=== PATIENT | female | born 1975 | race Caucasian/White ===

== ENCOUNTER 2017-08-27 11:06 | Emergency (ER) | payer OTHER, MEDICAID, SELFPAY ==
[2017-08-27 11:08] VITALS: BP 132/81; PULSE 61; RESP 16; TEMP 36.6; O2SAT 100; BMI 24.7
--- NOTE | 2017-08-27 11:44 | ED.VISSUMM ---
- ER Visit Summary Date of Service: 08/27/17 Chief Complaint: Right ankle injury History of Present Illness: The patient is a 42 F presenting with right ankle injury. 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 She did not fall to the floor. She has been able to walk with pain since. She tried Tylenol. She complains of persistent pain. She denies other injury. Physical Examination: Vitals are stable. Patient is afebrile. Alert no acute distress. HEENT exam is unremarkable. Lungs are clear and equal bilaterally. Heart is regular rate and rhythm. Extremities right lateral and mid ankle tenderness. No proximal fibula tenderness Skin is warm and dry. Remainder of exam is unremarkable. Emergency Department Course and Treatment: Ice pack was applied. Right foot x-ray shows no acute process, right ankle x-ray shows soft tissue swelling, Old avulsion injury of the medial malleolus. She is given an Aircast. She is given naproxen. She is advised to ice and elevate. Advised to follow-up with corporate care. Advised to return to the ED for worsening complaints. Disposition: Discharge home Impression: Right ankle sprain This note was generated with [employer] dictation software. It may contain incorrect words, spelling, and punctuation that were not noted in review of the chart prior to signing ED Disposition - Plan for ED Patient: Chief Complaint: Lower Extremity Injury Referrals: Reid Jimenez MD [Primary Care Provider] -
--- NOTE | 2017-08-27 11:50 | RAD_ITS ---
STUDY: X-RAY - RIGHT ANKLE REASON FOR EXAM: Female, 42 years old. Pain following injury. TECHNIQUE: 3 view(s) of the ankle. COMPARISON: None. FINDINGS: Normal visualized distal tibia and fibula. Old avulsion injury of the medial malleolus. Normal tibiotalar articulation and ankle mortise. Normal visualized talus and calcaneus. The visualized subtalar, talonavicular, calcaneocuboid and tarsal articulations are normal. Soft tissue swelling. RAD/Ankle min 3 Views IMPRESSION: Soft tissue swelling. Old avulsion injury of the medial malleolus. Electronically Signed: Ponce Pineda MD at 12:24 EST Tel [phone], Service support ,
--- NOTE | 2017-08-27 11:58 | RAD_ITS ---
STUDY: X-RAY - RIGHT FOOT CLINICAL: Female, 42 years old. Pain following injury. TECHNIQUE: 3 view(s) of the foot. COMPARISON: None. FINDINGS: Normal talus, calcaneus, and tarsal bones. Normal visualized subtalar, talonavicular, calcaneocuboid, tarsal and tarsometatarsal articulations. Normal metatarsi. Normal metatarsophalangeal joint of the great toe. There is a bipartite fibula sesamoid. Normal interphalangeal joint of the great toe. Normal phalanges of the great toe. Normal second through fifth metatarsophalangeal joints. Normal interphalangeal joints and phalanges of the lesser toes. The soft tissue structures are unremarkable. RAD/Foot min 3 Views IMPRESSION: Normal x-ray examination of the foot. Electronically Signed: Ponce Pineda MD at 12:15 EST Tel [phone], Service support ,
--- NOTE | 2017-08-27 13:14 | DCINST.ED_ITS ---
ED Disposition - Plan for ED Patient: Chief Complaint: Lower Extremity Injury Instructions: ED Sprain Ankle W X Ray Referrals: Reid Jimenez MD [Primary Care Provider] - [facility] [GROUP OF PHYSICIANS] -
[2017-08-27] MEDS: Naproxen 500 MG Tablet PO (13:29)
== END 2017-08-27 13:36 | disposition home or self-care (01) ==
LOC: ED 12:39
PROVIDERS: Emergency Provider Emergency Medicine; Family Provider Family Medicine; PCP Family Medicine
DX: S93.401A Sprain of unspecified ligament of right ankle, initial encounter (principal); X50.1XXA Overexertion from prolonged static or awkward postures, initial encounter; Y93.9 Activity, unspecified; Y92.9 Unspecified place or not applicable
CPT/HCPCS: 73610; 73630; 99283

== ENCOUNTER 2017-10-26 16:30 | Emergency (ER) | payer MEDICAID, SELFPAY ==
--- NOTE | 2017-10-26 18:00 | CT_ITS ---
STUDY: CT BRAIN WITHOUT CONTRAST REASON FOR EXAM: Female, 42 years old. Headache. RADIATION DOSAGE (If Supplied By Facility): CTDIvol = ( 44.99 ) mGy, DLP = ( 779.24 ) mGycm TECHNIQUE: Transaxial CT imaging of the brain was performed without administration of intravenous contrast material. Individualized dose optimization techniques were used for this CT. COMPARISON: None. FINDINGS: Normal soft tissue structures. Normal calvarium. Normal size ventricles and extra-axial spaces for the patient's age. Normal white matter tracts of the cerebral hemispheres. Normal basal ganglia and thalami. Normal brainstem. Normal cerebellum. There is no intracranial hemorrhage. There are no findings of an acute ischemic infarction. There is a large mucus retention cyst in the left maxillary sinus. CT/Brain/Head without Contrast IMPRESSION: 1. Normal unenhanced CT scan of the brain. 2. Left maxillary sinusitis. Electronically Signed: Javy Parra DO at 18:39 EDT Tel [phone], Service support ,
[2017-10-26 23:27] LABS: Bacteria 0 SEEN /hpf (None Seen); Mucous, Urine 0 SEEN /hpf (<or=2+); Red Blood Cells-Urine 0 SEEN /hpf (0-5); Squamous Epithelial Cells - UA 0 SEEN /hpf (5-10); White Blood Cells 0 SEEN /hpf (0-5)
[2017-10-27 01:21] LABS: Color, Urine STRAW (Yellow); Glucose, Dipstick Normal (Normal); Urine Clarity Clear (Clear)
[2017-10-27 01:22] LABS: Ketone-Dipstick Negative (Negative); Leukocyte Esterase-Dipstick Negative /ul (Negative); Nitrite-Dipstick Negative (Negative); Occult Blood-Urine Negative /ul (Negative); Protein-Dipstick Negative (Negative); Urine Bilirubin Dipstick Negative (Negative); Urine Urobilinogen Normal (Normal)
[2017-10-27 01:43] LABS: Anion Gap 7 (5-15); BUN 11 mg/dL (7-18); BUN/Creat Ratio 14.3 RATIO (10-20); Calcium,Total 8.8 mg/dL (8.5-10.1); Chloride 106 mmol/L (98-107); Creatinine, Serum 0.77 mg/dL (0.55-1.02); EST Glomerular Filtration Rate 88 mL/min (>60); Est Glom Filt Rate - Afr Amer 107 mL/min (>60); Glucose 68 mg/dL (74-106); Potassium 3.5 mmol/L (3.5-5.1); Sodium Level 140 mmol/L (136-145)
[2017-10-27 01:49] LABS: Absolute Neutrophil Count 4.9 X10^3/uL (2.0-7.7); Basophil% 0.4 % (0-1); Eosinophils% 3.5 % (0-5); Hematocrit 45.5 % (37-47); Hemoglobin 14.8 g/dl (12.0-15.0); Lymphocyte # 3.57 X10^3/ul (4.0); Lymphocyte % 38.6 % (19-41); Mean Corp Hgb Conc 32.5 g/gl (32-36); Mean Corpuscular Hgb 29.7 pg (27.0-32.0); Mean Corpuscular Volume 91.4 fL (81-99); Mean Platelet Vol. 9.2 fl (6.2-12.0); Monocyte% 4.5 % (0-10); Neutrophil # 4.87 X10^3/uL (2.7-7.7); Neutrophil % 52.8 % (47-70); POSITIVE COUNT NO; POSITIVE DIFFERENTIAL NO; POSITIVE MORPHOLOGY NO; Platelet Count 337 K/mm3 (150-450); RBC Distribution Width CV 13.3 % (11.6-14.6); Red Blood Count 4.98 M/mm3 (4.2-5.4); White Blood Count 9.2 K/mm3 (4.4-11.0)
--- NOTE | 2017-10-27 01:49 | ED.VISSUMM ---
- ER Visit Summary Date of Service: 10/27/17 Chief Complaint: Headache History of Present Illness: The patient is a 42 F frontal headache since 10 AM this morning. Gradual. Complains of oral sensations with photo and phonophobia. Denies fever. States been having chills for 4 days. With sick contacts. Complains of diarrhea 3 times per day for the last 4 days. No recent antibiotics. She is tolerating oral fluids. Complains a urine frequency. Mild cough. No dyspnea. No chest pains. No history of migraines. Physical Examination: General: Alert and oriented ?3, no acute distress HEENT: Normocephalic, atraumatic. Moist mucosa membranes Neck: supple, nontender. No meningismus Cardiovascular: Regular rate and rhythm, no murmurs Respiratory: Normal breath sounds, symmetric, no distress Abdomen: Soft, nontender, nondistended Extremities: Nontender, no edema, pulses intact ?4 Neuro: no focal neurological deficits. Test Results: CT head negative. UA normal. CBC, BMP normal Emergency Department Course and Treatment: CT head obtained due to her new onset headaches negative except for maxillary sinusitis. She is not tender in this region. Treated migraine regimen of Compazine Benadryl and fluids with improvement of symptoms. Labs were checked due to her chills and diarrhea symptoms. There were normal. Patient will continue oral hydration at home. Follow-up with PCP, return if any worsening symptoms. Treatment Plan: [] Disposition: Discharged Impression: 1. Headache 2. Diarrhea This note was generated with [employer] dictation software. It may contain incorrect words, spelling, and punctuation that were not noted in review of the chart prior to signing ED Disposition - Plan for ED Patient: Disposition: Home or Assisted Living Diagnosis: Headache, Diarrhea Referrals: Reid Jimenez MD [Primary Care Provider] -
[2017-10-27 01:50] LABS: Absolute Lymphocyte Count 3.57 X10^3/ul (0.83-4.51); Basophil# 0.04 X10^3/uL; Eosinophil# 0.32 X10^3/uL; Monocyte# 0.42 X10^3/uL
== END 2017-10-26 20:25 | disposition home or self-care (01) ==
PROVIDERS: Emergency Provider Emergency Medicine; Family Provider Family Medicine; PCP Family Medicine
DX: R51 Headache (principal); R19.7 Diarrhea, unspecified; K21.9 Gastro-esophageal reflux disease without esophagitis; Z79.899 Other long term (current) drug therapy
CPT/HCPCS: 36415; 70450; 80048; 81001; 85025; 96374; 96375; 99283

== ENCOUNTER 2017-12-19 22:07 | Emergency (ER) | payer MEDICAID, SELFPAY ==
[2017-12-19 22:08] VITALS: BP 121/91; PULSE 104; RESP 16; TEMP 36.9; O2SAT 97; BMI 26.5
--- NOTE | 2017-12-19 23:08 | ED.VISSUMM ---
- ER Visit Summary Date of Service: 12/19/17 Chief Complaint: Abdominal pain History of Present Illness: The patient is a 42 F who presents for 3 days of abdominal pain. Pain began diffusely in the periumbilical region and now is located in the right lower quadrant. Patient states the pain is sharp and constant. It is worse with movement, including bumps in the road on the ride to the emergency department. Also worse after eating. Patient states she has associated nausea, several episodes of mucousy diarrhea, and a decreased appetite. Denies fever, chest pain, shortness of breath, URI symptoms. Upon arriving in the emergency department she began having some mild right-sided back pain as well. Denies urinary symptoms. History of hysterectomy and bilateral salpingo-oophorectomy, cholecystectomy. Patient still has her appendix. She has had similar symptoms in the past but states it was due to an ovarian cyst, and she no longer has her ovaries. Eyes alcohol or tobacco use. Physical Examination: Vital signs: afebrile, hemodynamically stable, no hypoxia on room air General: well nourished, well developed, laying in bed with knees pulled up to chest, appears uncomfortable Skin: warm, dry, no rash, no pallor HEENT: normocephalic and atraumatic; PERRL, EOMI, moist mucous membranes Cardiovascular: Tachycardic rate and rhythm without murmurs, no peripheral edema, 2+ pulses all distal extremities Respiratory: No increased work of breathing, lungs are clear to auscultation bilaterally, no rales, rhonchi or wheezing Abdominal: Abdomen is soft, tender in the right periumbilical region and McBurney's point, with normoactive bowel sounds, voluntary guarding or rebound, no masses MSK: Moves all extremities, no deformities, normal strength Neuro: Awake and alert, oriented ?4. No facial droop, sensation and motor function intact and symmetric Test Results: Abnormal Lab Results 12/19/17 12/19/17 12/19/17 23:20 23:28 23:28 WBC 10.1 RBC 5.00 Hgb 15.1 H Hct 44.1 MCV 88.2 MCH 30.2 MCHC 34.2 RDW 12.4 RDW Differential 39.8 Plt Count 308 MPV 8.9 Immature Gran % (Auto) 0.300 Neut % (Auto) 52.3 Lymph % (Auto) 37.7 [place] % (Auto) 5.4 Eos % (Auto) 3.9 Baso % (Auto) 0.4 Absolute Neuts (auto) 5.3 Absolute Lymphs (auto) 3.79 Total Counted Not Reportable Sodium 139 Potassium 3.5 Chloride 105 Carbon Dioxide 27.0 Anion Gap 7 BUN 8 Creatinine 0.84 Estim Creat Clear Calc 72.91 Est GFR (MDRD) Af Amer 96 Est GFR (MDRD) Non-Af 79 BUN/Creatinine Ratio 9.5 L Glucose 100 Lactic Acid Calcium 9.1 Total Bilirubin 0.30 AST 16 ALT 27 Alkaline Phosphatase 93 Total Protein 7.3 Albumin 3.6 Globulin 3.7 Albumin/Globulin Ratio 1.0 Lipase 130 Urine Color Yellow Urine Clarity Sl. Cloudy Urine pH 6.0 Ur Specific [place] 1.015 Urine Protein Negative Urine Glucose (UA) Normal Urine Ketones Negative Urine Occult Blood 10 H Urine Nitrite Negative Urine Bilirubin Negative Urine Urobilinogen Normal Ur Leukocyte Esterase 25 H Urine RBC 0-5 SEEN Urine WBC 0-5 SEEN Ur Squamous Epith Cells 0-5 SEEN Urine Bacteria RARE Urine Mucus 0 SEEN 12/19/17 23:28 WBC RBC Hgb Hct MCV MCH MCHC RDW RDW Differential Plt Count MPV Immature Gran % (Auto) Neut % (Auto) Lymph % (Auto) [place] % (Auto) Eos % (Auto) Baso % (Auto) Absolute Neuts (auto) Absolute Lymphs (auto) Total Counted Sodium Potassium Chloride Carbon Dioxide Anion Gap BUN Creatinine Estim Creat Clear Calc Est GFR (MDRD) Af Amer Est GFR (MDRD) Non-Af BUN/Creatinine Ratio Glucose Lactic Acid 0.7 Calcium Total Bilirubin AST ALT Alkaline Phosphatase Total Protein Albumin Globulin Albumin/Globulin Ratio Lipase Urine Color Urine Clarity Urine pH Ur Specific [place] Urine Protein Urine Glucose (UA) Urine Ketones Urine Occult Blood Urine Nitrite Urine Bilirubin Urine Urobilinogen Ur Leukocyte Esterase Urine RBC Urine WBC Ur Squamous Epith Cells Urine Bacteria Urine Mucus Clinical Impression(s) from Imaging Studies Abdomen/Pelvis CT 12/20/17 23:06 IMPRESSION: Previous cholecystectomy and hysterectomy. Atherosclerosis. No evidence for acute pathology. Electronically Signed: Geoff Meier MD at 2:52 EDT , Service support , Emergency Department Course and Treatment: Patient's presentation and exam are concerning for possible appendicitis. Patient was given fentanyl and Zofran as well as IV fluids. CBC showed no leukocytosis. See REGIONAL BUSINESS MANAGER was unremarkable, and lipase normal. Urinalysis negative for infection. Lactate was normal. CT of the abdomen and pelvis was performed with p.o. and IV contrast and showed a normal appendix and no other acute abdominal pathology. On reevaluation patient's periumbilical pain had resolved and she was beginning to have some right lower quadrant abdominal pain again. She is status post hysterectomy and oophorectomy, thus torsion is not on the differential. Patient was feeling much better on reevaluation and was given 1 dose of [place] prior to discharge. No life-threatening causes of patient's abdominal pain were identified that would require surgical consult or admission. Patient was discharged home with a small prescription for [place] for further pain. She is to use naproxen for mild to moderate pain. She is to follow-up with her primary care doctor if her pain continues or return if any worsening of her symptoms. Patient agreed and was discharged home. Treatment Plan: [] Disposition: [] Impression: Abdominal pain, periumbilical and right lower quadrant This note was generated with [employer] dictation software. It may contain incorrect words, spelling, and punctuation that were not noted in review of the chart prior to signing ED Disposition - Plan for ED Patient: Disposition: Home or Assisted Living Chief Complaint: Abd Pain Instructions: ED Abdominal Pain Unkn Cause Prescriptions: Hydrocodone Bitart/Apap 5-325 [[place] 5MG-325MG] 1 tab PO Q6H PRN PRN 3 Days #6 tab PRN Reason: Pain Ondansetron [Zofran Odt] 4 mg PO Q8H PRN PRN #10 tab PRN Reason: Nausea Referrals: Reid Jimenez MD [Primary Care Provider] - 3-5 Days if not improving Additional Instructions: If you have any worsening of your condition or any new concerning symptoms, please return immediately to the emergency department for another evaluation.
--- NOTE | 2017-12-19 23:11 | ED.DCSUM_ITS ---
- ER Visit Summary Date of Service: 12/19/17 Chief Complaint: Abdominal pain History of Present Illness: The patient is a 42 F who presents for 3 days of abdominal pain. Pain began diffusely in the periumbilical region and now is located in the right lower quadrant. Patient states the pain is sharp and constant. It is worse with movement, including bumps in the road on the ride to the emergency department. Also worse after eating. Patient states she has associated nausea, several episodes of mucousy diarrhea, and a decreased appetite. Denies fever, chest pain, shortness of breath, URI symptoms. Upon arriving in the emergency department she began having some mild right-sided back pain as well. Denies urinary symptoms. History of hysterectomy and bilateral salpingo-oophorectomy, cholecystectomy. Patient still has her appendix. She has had similar symptoms in the past but states it was due to an ovarian cyst, and she no longer has her ovaries. Eyes alcohol or tobacco use. Physical Examination: Vital signs: afebrile, hemodynamically stable, no hypoxia on room air General: well nourished, well developed, laying in bed with knees pulled up to chest, appears uncomfortable Skin: warm, dry, no rash, no pallor HEENT: normocephalic and atraumatic; PERRL, EOMI, moist mucous membranes Cardiovascular: Tachycardic rate and rhythm without murmurs, no peripheral edema , 2+ pulses all distal extremities Respiratory: No increased work of breathing, lungs are clear to auscultation bilaterally, no rales, rhonchi or wheezing Abdominal: Abdomen is soft, tender in the right periumbilical region and McBurney's point, with normoactive bowel sounds, voluntary guarding or rebound, no masses MSK: Moves all extremities, no deformities, normal strength Neuro: Awake and alert, oriented ?4. No facial droop, sensation and motor function intact and symmetric Test Results: Abnormal Lab Results 12/19/17 12/19/17 12/19/17 23:20 23:28 23:28 WBC 10.1 RBC 5.00 Hgb 15.1 H Hct 44.1 MCV 88.2 MCH 30.2 MCHC 34.2 RDW 12.4 RDW Differential 39.8 Plt Count 308 MPV 8.9 Immature Gran % (Auto) 0.300 Neut % (Auto) 52.3 Lymph % (Auto) 37.7 [place] % (Auto) 5.4 Eos % (Auto) 3.9 Baso % (Auto) 0.4 Absolute Neuts (auto) 5.3 Absolute Lymphs (auto) 3.79 Total Counted Not Reportable Sodium 139 Potassium 3.5 Chloride 105 Carbon Dioxide 27.0 Anion Gap 7 BUN 8 Creatinine 0.84 Estim Creat Clear Calc 72.91 Est GFR (MDRD) Af Amer 96 Est GFR (MDRD) Non-Af 79 BUN/Creatinine Ratio 9.5 L Glucose 100 Lactic Acid Calcium 9.1 Total Bilirubin 0.30 AST 16 ALT 27 Alkaline Phosphatase 93 Total Protein 7.3 Albumin 3.6 Globulin 3.7 Albumin/Globulin Ratio 1.0 Lipase 130 Urine Color Yellow Urine Clarity Sl. Cloudy Urine pH 6.0 Ur Specific [place] 1.015 Urine Protein Negative Urine Glucose (UA) Normal Urine Ketones Negative Urine Occult Blood 10 H Urine Nitrite Negative Urine Bilirubin Negative Urine Urobilinogen Normal Ur Leukocyte Esterase 25 H Urine RBC 0-5 SEEN Urine WBC 0-5 SEEN Ur Squamous Epith Cells 0-5 SEEN Urine Bacteria RARE Urine Mucus 0 SEEN 12/19/17 23:28 WBC RBC Hgb Hct MCV MCH MCHC RDW RDW Differential Plt Count MPV Immature Gran % (Auto) Neut % (Auto) Lymph % (Auto) [place] % (Auto) Eos % (Auto) Baso % (Auto) Absolute Neuts (auto) Absolute Lymphs (auto) Total Counted Sodium Potassium Chloride Carbon Dioxide Anion Gap BUN Creatinine Estim Creat Clear Calc Est GFR (MDRD) Af Amer Est GFR (MDRD) Non-Af BUN/Creatinine Ratio Glucose Lactic Acid 0.7 Calcium Total Bilirubin AST ALT Alkaline Phosphatase Total Protein Albumin Globulin Albumin/Globulin Ratio Lipase Urine Color Urine Clarity Urine pH Ur Specific [place] Urine Protein Urine Glucose (UA) Urine Ketones Urine Occult Blood Urine Nitrite Urine Bilirubin Urine Urobilinogen Ur Leukocyte Esterase Urine RBC Urine WBC Ur Squamous Epith Cells Urine Bacteria Urine Mucus Clinical Impression(s) from Imaging Studies Abdomen/Pelvis CT 12/20/17 23:06 IMPRESSION: Previous cholecystectomy and hysterectomy. Atherosclerosis. No evidence for acute pathology. Electronically Signed: Geoff Meier MD at 2:52 EDT , Service support , Emergency Department Course and Treatment: Patient's presentation and exam are concerning for possible appendicitis. Patient was given fentanyl and Zofran as well as IV fluids. CBC showed no leukocytosis. See ROUTE CLERK was unremarkable, and lipase normal. Urinalysis negative for infection. Lactate was normal. CT of the abdomen and pelvis was performed with p.o. and IV contrast and showed a normal appendix and no other acute abdominal pathology. On reevaluation patient 's periumbilical pain had resolved and she was beginning to have some right lower quadrant abdominal pain again. She is status post hysterectomy and oophorectomy, thus torsion is not on the differential. Patient was feeling much better on reevaluation and was given 1 dose of [place] prior to discharge. No life-threatening causes of patient's abdominal pain were identified that would require surgical consult or admission. Patient was discharged home with a small prescription for [place] for further pain. She is to use naproxen for mild to moderate pain. She is to follow-up with her primary care doctor if her pain continues or return if any worsening of her symptoms. Patient agreed and was discharged home. Treatment Plan: [] Disposition: [] Impression: Abdominal pain, periumbilical and right lower quadrant This note was generated with [employer] dictation software. It may contain incorrect words, spelling, and punctuation that were not noted in review of the chart prior to signing ED Disposition - Plan for ED Patient: Disposition: Home or Assisted Living Chief Complaint: Abd Pain Instructions: ED Abdominal Pain Unkn Cause Prescriptions: Hydrocodone Bitart/Apap 5-325 [[place] 5MG-325MG] 1 tab PO Q6H PRN PRN 3 Days #6 tab PRN Reason: Pain Ondansetron [Zofran Odt] 4 mg PO Q8H PRN PRN #10 tab PRN Reason: Nausea Referrals: Reid Jimenez MD [Primary Care Provider] - 3-5 Days if not improving Additional Instructions: If you have any worsening of your condition or any new concerning symptoms, please return immediately to the emergency department for another evaluation.
[2017-12-19 23:25] LABS: Mucous, Urine 0 SEEN /hpf (<or=2+)
[2017-12-19 23:31] LABS: Color, Urine Yellow (Yellow); Glucose, Dipstick Normal (Normal); Ketone-Dipstick Negative (Negative); Leukocyte Esterase-Dipstick 25 /ul (Negative); Nitrite-Dipstick Negative (Negative); Occult Blood-Urine 10 /ul (Negative); Protein-Dipstick Negative (Negative); Specific Gravity, Urine 1.015 (1.002-1.030); Urine Bilirubin Dipstick Negative (Negative); Urine Clarity Sl. Cloudy (Clear); Urine Urobilinogen Normal (Normal)
[2017-12-19] MEDS: fentaNYL 100 MCG/2 ML Ampul 50 MCG IV (23:36)
[2017-12-19] MEDS: Ondansetron 4 MG/2 ML Vial IV (23:36)
[2017-12-19] MEDS: 0.9% Normal Saline 1,000 ML 1000 ML IV (23:36)
[2017-12-19 23:40] LABS: Absolute Lymphocyte Count 3.79 X10^3/ul (0.83-4.51); Absolute Neutrophil Count 5.3 X10^3/uL (2.0-7.7); Basophil# 0.04 X10^3/uL; Basophil% 0.4 % (0-1); Eosinophil# 0.39 X10^3/uL; Eosinophils% 3.9 % (0-5); Hematocrit 44.1 % (37-47); Hemoglobin 15.1 g/dl (12.0-15.0); Lymphocyte # 3.79 X10^3/ul (4.0); Lymphocyte % 37.7 % (19-41); Mean Corp Hgb Conc 34.2 g/gl (32-36); Mean Corpuscular Hgb 30.2 pg (27.0-32.0); Mean Corpuscular Volume 88.2 fL (81-99); Mean Platelet Vol. 8.9 fl (6.2-12.0); Monocyte# 0.54 X10^3/uL; Monocyte% 5.4 % (0-10); Neutrophil # 5.26 X10^3/uL (2.7-7.7); Neutrophil % 52.3 % (47-70); Platelet Count 308 K/mm3 (150-450); RBC Distribution Width CV 12.4 % (11.6-14.6); RBC Distribution Width SD 39.8 fl (35.1-43.9); White Blood Count 10.1 K/mm3 (4.4-11.0)
[2017-12-19 23:41] LABS: POSITIVE COUNT NO; POSITIVE DIFFERENTIAL NO; POSITIVE MORPHOLOGY NO
[2017-12-19 23:55] LABS: Bacteria RARE /hpf (None Seen); Red Blood Cells-Urine 0-5 SEEN /hpf (0-5); Squamous Epithelial Cells - UA 0-5 SEEN /hpf (5-10); White Blood Cells 0-5 SEEN /hpf (0-5)
[2017-12-20 00:01] LABS: AST(SGOT) 16 U/L (15-37); Alanine Aminotransfer ALT/SGPT 27 U/L (13-56); Albumin, Serum 3.6 g/dL (3.2-5.0); Alkaline Phosphatase 93 U/L (45-117); Anion Gap 7 (5-15); BUN 8 mg/dL (7-18); BUN/Creat Ratio 9.5 RATIO (10-20); Calcium,Total 9.1 mg/dL (8.5-10.1); Chloride 105 mmol/L (98-107); Creatinine, Serum 0.84 mg/dL (0.55-1.02); EST Glomerular Filtration Rate 79 mL/min (>60); Est Glom Filt Rate - Afr Amer 96 mL/min (>60); Estimated Creatinine Clearance 72.91 ml/min; Globulin 3.7 g/dL (2.2-4.2); Glucose 100 mg/dL (74-106); Lipase 130 U/L (73-393); Potassium 3.5 mmol/L (3.5-5.1); Protein, Total 7.3 g/dL (6.4-8.2); Sodium Level 139 mmol/L (136-145)
[2017-12-20 00:52] LABS: Lactic Acid 0.7 mmol/L (0.4-2.0)
[2017-12-20 02:40] VITALS: BP 124/60; PULSE 81; RESP 18; O2SAT 100
--- NOTE | 2017-12-20 03:01 | ED.DEP ---
ED Disposition - Plan for ED Patient: Disposition: Home or Assisted Living Chief Complaint: Abd Pain Instructions: ED Abdominal Pain Unkn Cause Prescriptions: Hydrocodone Bitart/Apap 5-325 [[place] 5MG-325MG] 1 tab PO Q6H PRN PRN 3 Days #6 tab PRN Reason: Pain Ondansetron [Zofran Odt] 4 mg PO Q8H PRN PRN #10 tab PRN Reason: Nausea Referrals: Reid Jimenez MD [Primary Care Provider] - 3-5 Days if not improving Additional Instructions: If you have any worsening of your condition or any new concerning symptoms, please return immediately to the emergency department for another evaluation.
[2017-12-20] MEDS: HYDROcodone Bitartrate/Apap 5/325 Tablet PO (03:30)
[2017-12-20 03:35] VITALS: BP 102/66; PULSE 75; RESP 18; O2SAT 97
--- NOTE | 2017-12-20 23:06 | CT_ITS ---
STUDY: CT ABDOMEN AND PELVIS WITH CONTRAST REASON FOR EXAM: Female, 42 years old. Abdominal pain for 3 days. Nausea. Diarrhea. RADIATION DOSAGE (If Supplied By Facility): CTDIvol = ( 11.54 ) mGy, DLP = ( 772.02 ) mGycm TECHNIQUE: Transaxial images were obtained from the dome of the diaphragm to the symphysis pubis with oral contrast. 100ML ml of Isovue 300 contrast was administered. Sagittal and coronal images were reconstructed. . Individualized dose optimization techniques were used for this CT. COMPARISON: 04/27/2015. FINDINGS: The visualized lung bases are unremarkable. The visualized portions of the heart are within normal limits. Normal liver. There are surgical clips in the gallbladder fossa consistent with a prior cholecystectomy. Normal spleen. Normal pancreas. Normal bilateral adrenal glands. Normal right kidney. Normal left kidney. Normal visualized stomach. Normal small intestine. Normal colon. The appendix is visualized on axial images 77-83 and it appears normal.. There is atherosclerotic calcification of the abdominal aorta, without a demonstrated aneurysm. Normal inferior vena cava. Normal retroperitoneum. Assessment of the urinary bladder is limited by nondistention. There is absence of the uterus consistent with a prior hysterectomy. Normal abdominal wall. Normal osseous structures. CT/Abdomen/Pelvis WITH Contrast IMPRESSION: Previous cholecystectomy and hysterectomy. Atherosclerosis. No evidence for acute pathology. Electronically Signed: Geoff Meier MD at 2:52 EDT , Service support ,
== END 2017-12-20 03:36 | disposition home or self-care (01) ==
PROVIDERS: Emergency Provider Emergency Medicine; Family Provider Family Medicine; PCP Family Medicine
DX: R10.31 Right lower quadrant pain (principal); R10.33 Periumbilical pain; R11.0 Nausea; R19.7 Diarrhea, unspecified; M54.9 Dorsalgia, unspecified; Z90.710 Acquired absence of both cervix and uterus; Z90.722 Acquired absence of ovaries, bilateral; Z90.49 Acquired absence of other specified parts of digestive tract; Z87.891 Personal history of nicotine dependence
CPT/HCPCS: 74177; 80053; 81001; 83605; 83690; 85025; 96361; 96374; 96375; 99285; J7030; Q9967; A4216; J2405

== ENCOUNTER → 2017-12-31 18:36 | Outpatient (CLI) | payer MEDICAID, SELFPAY ==
[2018-01-03 09:01] LABS: HPV Reflexed? NOT INDICATED
== END ==
PROVIDERS: Family Provider Family Medicine; PCP Pediatrics; Visit Provider Obstetrics & Gynecology
DX: Z12.4 Encounter for screening for malignant neoplasm of cervix (principal)
CPT/HCPCS: 88175; G0145

== ENCOUNTER 2018-01-10 10:28 | Emergency (ER) | payer MEDICAID, SELFPAY ==
[2018-01-10 10:29] VITALS: BP 125/82; PULSE 92; RESP 17; TEMP 36.3; O2SAT 100; BMI 26.9
[2018-01-10 11:00] LABS: Bacteria 0 SEEN /hpf (None Seen); Mucous, Urine 0 SEEN /hpf (<or=2+); Red Blood Cells-Urine 0 SEEN /hpf (0-5); Squamous Epithelial Cells - UA 0 SEEN /hpf (5-10); White Blood Cells 0 SEEN /hpf (0-5)
[2018-01-10 11:04] LABS: Color, Urine Yellow (Yellow); Glucose, Dipstick Normal (Normal); Ketone-Dipstick Negative (Negative); Leukocyte Esterase-Dipstick Negative /ul (Negative); Nitrite-Dipstick Negative (Negative); Occult Blood-Urine Negative /ul (Negative); Protein-Dipstick Negative (Negative); Urine Bilirubin Dipstick Negative (Negative); Urine Clarity Clear (Clear); Urine Urobilinogen Normal (Normal)
[2018-01-10 11:06] LABS: Absolute Lymphocyte Count 3.09 X10^3/ul (0.83-4.51); Absolute Neutrophil Count 3.5 X10^3/uL (2.0-7.7); Basophil# 0.03 X10^3/uL; Basophil% 0.4 % (0-1); Eosinophil# 0.36 X10^3/uL; Hemoglobin 15.1 g/dl (12.0-15.0); Lymphocyte # 3.09 X10^3/ul (4.0); Lymphocyte % 42.6 % (19-41); Mean Corp Hgb Conc 32.8 g/gl (32-36); Mean Corpuscular Hgb 29.7 pg (27.0-32.0); Mean Corpuscular Volume 90.4 fL (81-99); Mean Platelet Vol. 9.4 fl (6.2-12.0); Monocyte# 0.25 X10^3/uL; Monocyte% 3.4 % (0-10); Neutrophil # 3.51 X10^3/uL (2.7-7.7); Neutrophil % 48.3 % (47-70); Platelet Count 302 K/mm3 (150-450); RBC Distribution Width CV 12.6 % (11.6-14.6); RBC Distribution Width SD 41.4 fl (35.1-43.9); Red Blood Count 5.09 M/mm3 (4.2-5.4); White Blood Count 7.3 K/mm3 (4.4-11.0)
[2018-01-10 11:08] LABS: POSITIVE COUNT NO; POSITIVE DIFFERENTIAL NO; POSITIVE MORPHOLOGY NO
[2018-01-10 11:18] LABS: Anion Gap 5 (5-15); BUN 9 mg/dL (7-18); BUN/Creat Ratio 11.1 RATIO (10-20); Calcium,Total 9.2 mg/dL (8.5-10.1); Chloride 106 mmol/L (98-107); Creatinine, Serum 0.81 mg/dL (0.55-1.02); EST Glomerular Filtration Rate 83 mL/min (>60); Est Glom Filt Rate - Afr Amer 100 mL/min (>60); Estimated Creatinine Clearance 75.61 ml/min; Glucose 82 mg/dL (74-106); Potassium 3.9 mmol/L (3.5-5.1); Sodium Level 143 mmol/L (136-145)
[2018-01-10] MEDS: Ketorolac 30 MG/ML Syringe IV (11:21)
[2018-01-10] MEDS: proMETHazine 25 MG/ML Syringe 6.25 MG IV (11:21)
--- NOTE | 2018-01-10 11:32 | EKG12_ITS ---
Test Reason : CHEST PRESSURE Blood Pressure : / mmHG Vent. Rate : 050 BPM Atrial Rate : 050 BPM P-R Int : 130 ms QRS Dur : 088 ms QT Int : 424 ms P-R-T Axes : 034 054 054 degrees QTc Int : 386 ms Sinus bradycardia with sinus arrhythmia Otherwise normal ECG Confirmed by FREDY WASHINGTON, CARROLL ([id number]), map editor EUSEBIO ARGUETA ([id number] on 01/14/2018 2:25:12 PM Referred By: Melody Vega Confirmed By:CARROLL DANIEL MD
--- NOTE | 2018-01-10 11:32 | ED.RN ---
after giving medications, pt began clutching chest and c/o chest pressure. called for ekg. dr atkins made aware.
[2018-01-10 11:35] LABS: AST(SGOT) 21 U/L (15-37); Alanine Aminotransfer ALT/SGPT 28 U/L (13-56); Albumin, Serum 3.8 g/dL (3.2-5.0); Alkaline Phosphatase 98 U/L (45-117); Bilirubin, Direct 0.06 mg/dL (0.00-0.30); Globulin 3.9 g/dL (2.2-4.2); Lipase 135 U/L (73-393); Protein, Total 7.7 g/dL (6.4-8.2)
[2018-01-10 12:49] VITALS: BP 125/74; PULSE 68; RESP 18; O2SAT 99
[2018-01-10 14:17] VITALS: BP 121/73; PULSE 65; RESP 18; O2SAT 100
--- NOTE | 2018-01-10 17:24 | ED.DCSUM_ITS ---
History of Present Illness Chief Complaint: Abd Pain Informant: Patient Onset: Weeks - 3 Context: Gradual Onset Timing: Continuous Quality: achy Location: RUQ mostly. radiates to periumbilical area and to mid-back. Current Severity: Severe Maximum Severity: Severe Worsened by: about 30 min after eating Relieved by: nothing Associated Symptoms: n/v. some nonbloody, nonmelanotic diarrhea off and on w/ mucous and oily. Narrative: Seen here last month for the same thing, had a negative workup with labs and CT abdomen/pelvis. Try to follow-up with her doctor but has not been able to yet. Called the office of the surgeon who took her gallbladder out and they did not want to see her for nonspecific abdominal pain. Symptoms worse today. - Past Medical History (1) H. pylori infection Status: Chronic (2) Tobacco dependence Status: Chronic Past Medical History - Allergies and Home Meds Allergies/Adverse Reactions: Allergies hydromorphone HCl [From Dilaudid] Allergy (Verified 01/10/18 10:29) Anaphylaxis morphine Allergy (Verified 01/10/18 10:29) Anaphylaxis meloxicam Adverse Reaction (Verified 01/10/18 10:29) Nausea tramadol [From Ultram] Adverse Reaction (Verified 01/10/18 10:29) Other Primary Care Physician: Reid Jimenez MD [Primary Care Provider] - Surgical History: cholecystectomy, - - 3 knee surgeries hysterectemy, laparoscopy. Smoking Status: Former smoker Alcohol: None Drugs: None - Family History Paternal Family History: Family History (Last Reviewed 12/31/17 @ 15:19 by Gloria Suresh) Other CVA (cerebral vascular accident) Cancer Diabetes Hypertension Family History: Reports: Heart Disease Review of Systems All systems negative except as indicated General: Reports: Malaise. Denies: Fever Cardiovascular: Denies: Chest pain Respiratory: Denies: Dyspnea, Cough Gastrointestinal: Reports: Abdominal pain, Nausea, Vomiting, Diarrhea. Denies: Melena, Hematochezia Genitourinary: Denies: Dysuria, Hematuria, Frequency Musculoskeletal: Reports: Back pain. Denies: Neck pain, Swelling, Extremity Pain Skin: Denies: Rash Neurological: Denies: Headache, Weakness, Parasthesia Physical Exam Vital Signs/Narrative: Vital Signs Temp Pulse Resp BP Pulse Ox 01/10/18 10:29 97.3 F L 92 17 125/82 H 100 Inital Vital Signs reviewed: Yes General: Well nourished, Well developed Head: Normocephalic, Atraumatic Eyes: Perrl, EOMI ENT: Moist mucous membranes, No rhinorrhea Neck: Supple, Nontender Cardiovascular: Regular rate, Regular rhythm, No murmurs Respiratory: No distress, CTA bilaterally, Chest nontender Abdomen: Soft, Nondistended, Normal bowel sounds, Tender - Right upper quadrant mostly. Also mildly tender in epigastrium but otherwise abdomen is benign., Guarding - Right upper quadrant only. Negative for: Rebound tenderness Back: Nontender, Normal Inspection, CVA tenderness - Mild left only. No rashes noted. Extremities: Nontender, No edema Skin: Normal color, No rash Neurological: Alert, Oriented x3, Cranial nerves II-XII grossly intact, Normal Strength, Normal Sensation, Normal Gait Psychological: Normal affect Diagnostic/Tx/Re-eval Laboratory Results 01/10/18 01/10/18 01/10/18 Range/Units 10:50 10:50 10:50 WBC 7.3 (4.4-11.0) K/mm3 RBC 5.09 (4.2-5.4) M/mm3 Hgb 15.1 H (12.0-15.0) g/dl Hct 46.0 (37-47) % MCV 90.4 (81-99) fL MCH 29.7 (27.0-32.0) pg MCHC 32.8 (32-36) g/gl RDW 12.6 (11.6-14.6) % RDW Differential 41.4 (35.1-43.9) fl Plt Count 302 (150-450) K/mm3 MPV 9.4 (6.2-12.0) fl Immature Gran % (Auto) 0.300 (0.0-0.9) % Neut % (Auto) 48.3 (47-70) % Lymph % (Auto) 42.6 H (19-41) % [place] % (Auto) 3.4 (0-10) % Eos % (Auto) 5.0 (0-5) % Baso % (Auto) 0.4 (0-1) % Absolute Neuts (auto) 3.5 (2.0-7.7) X10^3/uL Absolute Lymphs (auto) 3.09 (0.83-4.51) X10^3/ul Total Counted Not Reportable Sodium 143 (136-145) mmol/L Potassium 3.9 (3.5-5.1) mmol/L Chloride 106 (98-107) mmol/L Carbon Dioxide 32.0 (21.0-32.0) mmol/L Anion Gap 5 (5-15) BUN 9 (7-18) mg/dL Creatinine 0.81 (0.55-1.02) mg/dL Estim Creat Clear Calc 75.61 ml/min Est GFR (MDRD) Af Amer 100 (>60) mL/min Est GFR (MDRD) Non-Af 83 (>60) mL/min BUN/Creatinine Ratio 11.1 (10-20) RATIO Glucose 82 (74-106) mg/dL Calcium 9.2 (8.5-10.1) mg/dL Total Bilirubin (0.20-1.00) mg/dL Direct Bilirubin (0.00-0.30) mg/dL AST (15-37) U/L ALT (13-56) U/L Alkaline Phosphatase (45-117) U/L Total Protein (6.4-8.2) g/dL Albumin (3.2-5.0) g/dL Globulin (2.2-4.2) g/dL Lipase (73-393) U/L Urine Color Yellow (Yellow) Urine Clarity Clear (Clear) Urine pH 8.0 (5.0 - 8.0) Ur Specific [place] 1.010 (1.002-1.030) Urine Protein Negative (Negative) mg/dl Urine Glucose (UA) Normal (Normal) mg/dl Urine Ketones Negative (Negative) mg/dl Urine Occult Blood Negative (Negative) /ul Urine Nitrite Negative (Negative) Urine Bilirubin Negative (Negative) mg/dL Urine Urobilinogen Normal (Normal) mg/dl Ur Leukocyte Esterase Negative (Negative) /ul Urine RBC 0 SEEN (0-5) /hpf Urine WBC 0 SEEN (0-5) /hpf Ur Squamous Epith Cells 0 SEEN (5-10) /hpf Urine Bacteria 0 SEEN (None Seen) /hpf Urine Mucus 0 SEEN (<or=2+) /hpf //18 Range/Units 10:50 WBC (4.4-11.0) K/mm3 RBC (4.2-5.4) M/mm3 Hgb (12.0-15.0) g/dl Hct (37-47) % MCV (81-99) fL MCH (27.0-32.0) pg MCHC (32-36) g/gl RDW (11.6-14.6) % RDW Differential (35.1-43.9) fl Plt Count (150-450) K/mm3 MPV (6.2-12.0) fl Immature Gran % (Auto) (0.0-0.9) % Neut % (Auto) (47-70) % Lymph % (Auto) (19-41) % [place] % (Auto) (0-10) % Eos % (Auto) (0-5) % Baso % (Auto) (0-1) % Absolute Neuts (auto) (2.0-7.7) X10^3/uL Absolute Lymphs (auto) (0.83-4.51) X10^3/ul Total Counted Sodium (136-145) mmol/L Potassium (3.5-5.1) mmol/L Chloride (98-107) mmol/L Carbon Dioxide (21.0-32.0) mmol/L Anion Gap (5-15) BUN (7-18) mg/dL Creatinine (0.55-1.02) mg/dL Estim Creat Clear Calc ml/min Est GFR (MDRD) Af Amer (>60) mL/min Est GFR (MDRD) Non-Af (>60) mL/min BUN/Creatinine Ratio (10-20) RATIO Glucose (74-106) mg/dL Calcium (8.5-10.1) mg/dL Total Bilirubin 0.30 (0.20-1.00) mg/dL Direct Bilirubin 0.06 (0.00-0.30) mg/dL AST 21 (15-37) U/L ALT 28 (13-56) U/L Alkaline Phosphatase 98 (45-117) U/L Total Protein 7.7 (6.4-8.2) g/dL Albumin 3.8 (3.2-5.0) g/dL Globulin 3.9 (2.2-4.2) g/dL Lipase 135 (73-393) U/L Urine Color (Yellow) Urine Clarity (Clear) Urine pH (5.0 - 8.0) Ur Specific [place] (1.002-1.030) Urine Protein (Negative) mg/dl Urine Glucose (UA) (Normal) mg/dl Urine Ketones (Negative) mg/dl Urine Occult Blood (Negative) /ul Urine Nitrite (Negative) Urine Bilirubin (Negative) mg/dL Urine Urobilinogen (Normal) mg/dl Ur Leukocyte Esterase (Negative) /ul Urine RBC (0-5) /hpf Urine WBC (0-5) /hpf Ur Squamous Epith Cells (5-10) /hpf Urine Bacteria (None Seen) /hpf Urine Mucus (<or=2+) /hpf - Rhythm Strip Rhythm Strip: Sinus Rhythm Ectopy: None - EKG 1 Interpretation: No Acute Injury Pattern, Sinus Bradycardia, - - Normal otherwise Prior: No Prior - Medical Decision Making Labs are all normal. She recently had a CAT scan for the same problem and it was normal. She was given Toradol and Phenergan. On reevaluation she is obviously feeling better, and is walking around dressed, and on further discussion, it appears that the symptoms of been chronic for 3 years since her gallbladder was taken out. She had an abnormal HIDA scan. In addition to the CAT scan a month ago, she has had prior EGD, colonoscopy, as well as celiac disease workup, all of the test she has had been nondiagnostic. I have explained her that I will likely not have the answers here and I recommend that she follow-up with her predatory animal exterminator. She is in agreement. ED Disposition - Plan for ED Patient: Disposition: Home or Assisted Living Chief Complaint: Abd Pain Diagnosis: Right upper quadrant abdominal pain of unknown etiology Instructions: ED Abdominal Pain Unkn Cause Referrals: Reid Jimenez MD [Primary Care Provider] - (Or your predatory animal exterminator as able)
== END 2018-01-10 14:21 | disposition home or self-care (01) ==
PROVIDERS: Emergency Provider Emergency Medicine; Family Provider Family Medicine; PCP Family Medicine
DX: R10.11 Right upper quadrant pain (principal); R11.2 Nausea with vomiting, unspecified; Z90.49 Acquired absence of other specified parts of digestive tract; Z87.19 Personal history of other diseases of the digestive system; Z87.891 Personal history of nicotine dependence
CPT/HCPCS: 80048; 80076; 81001; 83690; 85025; 93005; 96374; 96375; 99283; J7030; J7040; A4216

== ENCOUNTER → 2018-01-19 07:17 | Outpatient (CLI) | payer MEDICAID, SELFPAY ==
--- NOTE | 2018-01-19 07:35 | BI_ITS ---
MAMMOGRAPHY - BILATERAL SCREENING REASON FOR EXAM: Female, 42 years old. Routine annual screening examination. PERTINENT HISTORY: Mother with breast cancer. Aunt with breast cancer. TECHNIQUE: Digital bilateral breast nellie (3D mammographic acquisition) in the CC and MLO projections. 2-D mediolateral oblique (MLO) and craniocaudad (CC) views of both breasts were obtained. CAD: Full Field Digital Mammography with Computer Added Detection was performed. COMPARISON: None. Baseline examination. FINDINGS: Breast Composition: The breasts are heterogeneously dense, which may obscure small masses. There are no dominant masses or suspicious calcifications. No other significant abnormalities are identified. BI/SCREENING MAMM (CAD), BILAT IMPRESSION: Negative screening mammogram. Yearly followup mammogram recommended. (A) ASSESSMENT CATEGORY: BIRADS Category 1: Negative. A letter regarding these results will be sent to the patient by the facility within 30 days. Approximately 10% of breast cancers are not detected by mammography. A normal mammogram should not delay biopsy of a clinically suspicious abnormality. [id number] Electronically Signed: Ponce Pineda MD at 8:30 EDT Tel [phone], Service support ,
== END ==
PROVIDERS: Family Provider Family Medicine; PCP Family Medicine; Visit Provider Obstetrics & Gynecology
DX: Z12.31 Encounter for screening mammogram for malignant neoplasm of breast (principal)
CPT/HCPCS: 77063; 77067

== ENCOUNTER 2018-01-27 12:00 | Emergency (ER) | payer MEDICAID, SELFPAY ==
[2018-01-27 12:01] VITALS: BP 126/76; PULSE 78; RESP 14; TEMP 37.2; O2SAT 100; BMI 27.3
--- NOTE | 2018-01-27 12:29 | CT_ITS ---
STUDY: CT ABDOMEN AND PELVIS WITH CONTRAST REASON FOR EXAM: Female, 42 years old. Abdominal pain RADIATION DOSAGE (If Supplied By Facility): CTDIvol = ( 16.95 ) mGy, DLP = ( 874.25 ) mGycm TECHNIQUE: Transaxial images were obtained from the dome of the diaphragm to the symphysis pubis without oral contrast. 100 ml of Isovue 300 contrast was administered. Sagittal and coronal images were reconstructed. Individualized dose optimization techniques were used for this CT. COMPARISON: 12/20/2017 FINDINGS: The visualized lung bases are clear. The visualized portions of the heart and pericardium are within normal limits. The patient is status post cholecystectomy. The liver is within normal limits. There are no suspicious hepatic lesions. The spleen is normal in size. The pancreas is within normal limits. The adrenal glands are within normal limits. There are no renal or ureteral stones. There is no hydronephrosis. There are no focal renal lesions. Normal visualized stomach. There is no bowel obstruction or inflammation. The appendix is visualized and appears normal. The aorta is normal in caliber. There is no abdominal or pelvic free air, free fluid, fluid collection or lymphadenopathy. The patient is status post hysterectomy. There are no destructive osseous lesions. CT/Abdomen/Pelvis W IV Cont ONLY IMPRESSION: No acute abdominal or pelvic pathology. Electronically Signed: Reagan Frey, at 13:54 EDT Tel , Service support ,
[2018-01-27 13:08] LABS: Absolute Lymphocyte Count 3.29 X10^3/ul (0.83-4.51); Absolute Neutrophil Count 4.4 X10^3/uL (2.0-7.7); Basophil# 0.05 X10^3/uL; Basophil% 0.6 % (0-1); Eosinophil# 0.35 X10^3/uL; Eosinophils% 4.2 % (0-5); Hematocrit 45.3 % (37-47); Hemoglobin 15.5 g/dl (12.0-15.0); Lymphocyte # 3.29 X10^3/ul (4.0); Lymphocyte % 39.4 % (19-41); Mean Corp Hgb Conc 34.2 g/gl (32-36); Mean Corpuscular Hgb 30.4 pg (27.0-32.0); Mean Corpuscular Volume 88.8 fL (81-99); Mean Platelet Vol. 8.8 fl (6.2-12.0); Monocyte# 0.29 X10^3/uL; Monocyte% 3.5 % (0-10); Neutrophil # 4.35 X10^3/uL (2.7-7.7); Neutrophil % 52.1 % (47-70); POSITIVE COUNT NO; POSITIVE DIFFERENTIAL NO; POSITIVE MORPHOLOGY NO; Platelet Count 312 K/mm3 (150-450); RBC Distribution Width CV 12.7 % (11.6-14.6); RBC Distribution Width SD 41.3 fl (35.1-43.9); White Blood Count 8.4 K/mm3 (4.4-11.0)
[2018-01-27] MEDS: Ondansetron 4 MG/2 ML Vial IV (13:10)
[2018-01-27] MEDS: 0.9% Normal Saline 1,000 ML 1000 ML IV (13:10)
[2018-01-27 13:23] LABS: AST(SGOT) 23 U/L (15-37); Alanine Aminotransfer ALT/SGPT 31 U/L (13-56); Albumin, Serum 3.9 g/dL (3.2-5.0); Alkaline Phosphatase 96 U/L (45-117); Anion Gap 9 (5-15); BUN 6 mg/dL (7-18); BUN/Creat Ratio 7.7 RATIO (10-20); Calcium,Total 9.2 mg/dL (8.5-10.1); Chloride 106 mmol/L (98-107); Creatinine, Serum 0.78 mg/dL (0.55-1.02); EST Glomerular Filtration Rate 86 mL/min (>60); Est Glom Filt Rate - Afr Amer 104 mL/min (>60); Estimated Creatinine Clearance 78.52 ml/min; Globulin 3.8 g/dL (2.2-4.2); Glucose 77 mg/dL (74-106); Lipase 162 U/L (73-393); Potassium 3.9 mmol/L (3.5-5.1); Protein, Total 7.7 g/dL (6.4-8.2); Sodium Level 143 mmol/L (136-145)
--- NOTE | 2018-01-27 14:32 | RAD_ITS ---
STUDY: X-RAY CHEST REASON FOR EXAM: Female, 42 years old. Cough TECHNIQUE: Frontal view of the chest COMPARISON: 06/15/2017 FINDINGS: The lungs are clear. There are no pleural effusions. There is no pneumothorax. The heart is normal in size. The visualized osseous structures are within normal limits. RAD/Chest 1 View (Portable) IMPRESSION: No acute thoracic pathology. Electronically Signed: Reagan Frey, at 16:01 EDT Tel , Service support ,
--- NOTE | 2018-01-27 15:00 | ED.DCSUM_ITS ---
- ER Visit Summary Date of Service: 01/27/18 Chief Complaint: Vomiting diarrhea History of Present Illness: The patient is a 42 F who states for the past 3 days she has had generalized myalgias chills cough nausea vomiting diarrhea and generalized abdominal pain. She went to urgent care and was referred here. No definitive fevers. She states that today she has had a lot of retching and said of vomiting. Physical Examination: Afebrile vital signs are stable Gen: Well-nourished well-developed Head: Normocephalic atraumatic Eyes: Perrl EOMI ENT: TMs clear no rhinorrhea moist mucous membranes Neck: Supple no lymphadenopathy no JVD nontender CVS: Regular rate rhythm no murmurs normal S1-S2 Respiratory: No distress clear to auscultation bilaterally chest nontender Abdomen: Soft mildly diffusely tender without guarding or rebound nondistended normal bowel sounds no masses Back: Nontender Extremity: Nontender no edema Skin: Normal color no rash Neuro: alert orientated ?3 CN II-XII intact normal strength sensation reflexes gait cerebellar Psych: Normal affect normal mood Test Results: BC CMP and lipase were negative. CT the abdomen pelvis was negative. Chest x-ray did not demonstrate any infiltrate. Emergency Department Course and Treatment: Patient received IV fluids and Zofran. She will be discharged home with supportive care return if worsening or concerns. Impression: 1. Gastroenteritis This note was generated with [employer] dictation software. It may contain incorrect words, spelling, and punctuation that were not noted in review of the chart prior to signing ED Disposition - Plan for ED Patient: Disposition: Home or Assisted Living Chief Complaint: General Illness Instructions: ED Gastroenteritis Viral Prescriptions: Ondansetron [Zofran Odt] 4 mg PO Q8H PRN PRN #10 tab PRN Reason: Nausea Referrals: Reid Jimenez MD [Primary Care Provider] - 3-5 Days if not improving
[2018-01-27 15:16] VITALS: BP 124/77; PULSE 78; RESP 18; O2SAT 97
== END 2018-01-27 15:17 | disposition home or self-care (01) ==
PROVIDERS: Emergency Provider Emergency Medicine; Family Provider Family Medicine; PCP Family Medicine
DX: K52.9 Noninfective gastroenteritis and colitis, unspecified (principal); R05 Cough; M54.2 Cervicalgia; K21.9 Gastro-esophageal reflux disease without esophagitis; Z90.49 Acquired absence of other specified parts of digestive tract; Z90.710 Acquired absence of both cervix and uterus; Z72.0 Tobacco use
CPT/HCPCS: 71045; 74177; 80053; 83690; 85025; 96361; 96374; 99283; J7030; Q9967; A4216; J2405

== ENCOUNTER 2018-02-11 11:01 | Emergency (ER) | payer MEDICAID, SELFPAY ==
[2018-02-11 11:03] VITALS: BP 164/68; PULSE 95; RESP 34; TEMP 36.6; O2SAT 99; BMI 27.8
[2018-02-11 11:10] LABS: Bedside Glucose 109 mg/dL (70-110)
--- NOTE | 2018-02-11 11:10 | EKG12_ITS ---
Test Reason : CP Blood Pressure : / mmHG Vent. Rate : 094 BPM Atrial Rate : 094 BPM P-R Int : 132 ms QRS Dur : 092 ms QT Int : 362 ms P-R-T Axes : 070 045 031 degrees QTc Int : 452 ms Normal sinus rhythm Nonspecific ST abnormality Abnormal ECG Confirmed by JOSE JUAN WASHINGTON, CAMRYN ([id number]), video news editor EUSEBIO ARGUETA ([id number]) on 02/13/2018 10:07:40 AM Referred By: YUE/ROSETTA Confirmed By:CAMRYN MANZANO MD
--- NOTE | 2018-02-11 11:10 | RAD_ITS ---
STUDY: X-RAY CHEST REASON FOR EXAM: Female, 42 years old. Weakness and chest pain TECHNIQUE: Single AP portable view of the chest. COMPARISON: None. FINDINGS: Cardiac monitoring leads overlie the chest. The lungs are clear and expanded. There is no demonstrated pleural abnormality. Normal size heart. Normal mediastinum and pura. Normal visualized pulmonary arteries. Normal visualized aortic arch and descending thoracic aorta. Normal visualized thoracic spine. There may be a remote right clavicle fracture. There is no demonstrated abnormality of the visualized soft tissue structures of the upper abdomen. RAD/Chest 1 View (Portable) IMPRESSION: No acute process in the chest. Electronically Signed: Esvin Tapia DO at 11:52 EDT Tel , Service support ,
--- NOTE | 2018-02-11 11:13 | ED.DCSUM_ITS ---
- ER Visit Summary Date of Service: 02/11/18 Chief Complaint: Chest pain History of Present Illness: The patient is a 42 F who presents with chest pain. She states it started suddenly while she was driving today. It sharp in the right parasternal area. She felt dizzy at the same time. Nothing made her symptoms better or worse. She had associated nausea without vomiting. She also felt short of breath. She states that she has A. fib from time to time but does not take any medications for it. No history of any cardiac issues in the past otherwise. Physical Examination: Vital signs reviewed. HEENT exam unremarkable. Heart is regular rate and rhythm without murmurs. Lungs are clear to auscultation. Abdomen is soft and nontender. Extremities reveal no edema. Peripheral pulses are equal. Skin exam normal. Neurologic exam normal. Test Results: EKG is normal sinus rhythm with rate of 94. Chest x-ray unremarkable. Labs reveal blood cell count of 12.6. Potassium 3.1. Troponin normal Emergency Department Course and Treatment: Patient received aspirin. I will also give her Vistaril because she is anxious. I do not believe that her pain is cardiac. Her DAYA score is 0. Patient will be given naproxen to take at home. She will need to follow-up with her PCP Treatment Plan: [] Disposition: Discharge Impression: Chest pain, noncardiac This note was generated with [employer] dictation software. It may contain incorrect words, spelling, and punctuation that were not noted in review of the chart prior to signing ED Disposition - Plan for ED Patient: Chief Complaint: Chest Pain Referrals: Reid Jimenez MD [Primary Care Provider] -
[2018-02-11 11:35] LABS: Absolute Lymphocyte Count 5.15 X10^3/ul (0.83-4.51); Absolute Neutrophil Count 6.5 X10^3/uL (2.0-7.7); Basophil# 0.05 X10^3/uL; Basophil% 0.4 % (0-1); Eosinophil# 0.34 X10^3/uL; Eosinophils% 2.7 % (0-5); Hematocrit 45.5 % (37-47); Hemoglobin 15.3 g/dl (12.0-15.0); Lymphocyte # 5.15 X10^3/ul (4.0); Lymphocyte % 40.8 % (19-41); Mean Corp Hgb Conc 33.6 g/gl (32-36); Mean Corpuscular Hgb 29.7 pg (27.0-32.0); Mean Corpuscular Volume 88.2 fL (81-99); Mean Platelet Vol. 9.1 fl (6.2-12.0); Monocyte# 0.55 X10^3/uL; Monocyte% 4.4 % (0-10); Neutrophil # 6.49 X10^3/uL (2.7-7.7); Neutrophil % 51.5 % (47-70); Platelet Count 385 K/mm3 (150-450); RBC Distribution Width CV 12.6 % (11.6-14.6); Red Blood Count 5.16 M/mm3 (4.2-5.4); White Blood Count 12.6 K/mm3 (4.4-11.0)
[2018-02-11 11:38] LABS: Differential Indicated SCAN CRITERIA MET; POSITIVE COUNT NO; POSITIVE DIFFERENTIAL YES; POSITIVE MORPHOLOGY NO
[2018-02-11] MEDS: Aspirin 81 MG TAB.CHEW 324 MG PO (11:44)
[2018-02-11 11:45] LABS: Anion Gap 11 (5-15); BUN 7 mg/dL (7-18); BUN/Creat Ratio 6.7 RATIO (10-20); Calcium,Total 9.1 mg/dL (8.5-10.1); Chloride 109 mmol/L (98-107); Creatinine, Serum 1.04 mg/dL (0.55-1.02); EST Glomerular Filtration Rate 62 mL/min (>60); Est Glom Filt Rate - Afr Amer 75 mL/min (>60); Estimated Creatinine Clearance 58.89 ml/min; Glucose 110 mg/dL (74-106); Potassium 3.1 mmol/L (3.5-5.1); Sodium Level 142 mmol/L (136-145)
[2018-02-11 12:23] VITALS: BP 127/82; PULSE 62; RESP 16; O2SAT 99
--- NOTE | 2018-02-11 12:38 | ED.DEP ---
ED Disposition - Plan for ED Patient: Disposition: Home or Assisted Living Chief Complaint: Chest Pain Instructions: ED Chest Pain NonCardiac Prescriptions: Naproxen [Naprosyn] 500 mg PO BID PRN #20 tab Referrals: Reid Jimenez MD [Primary Care Provider] -
[2018-02-11 12:46] VITALS: BP 142/75; PULSE 61; RESP 23; O2SAT 97
== END 2018-02-11 13:12 | disposition home or self-care (01) ==
PROVIDERS: Emergency Provider Emergency Medicine; Family Provider Family Medicine; PCP Family Medicine
DX: R07.89 Other chest pain (principal); R42 Dizziness and giddiness; R11.0 Nausea; R06.00 Dyspnea, unspecified; I48.91 Unspecified atrial fibrillation; K21.9 Gastro-esophageal reflux disease without esophagitis
CPT/HCPCS: 71045; 80048; 82962; 84484; 85025; 93005; 99284; A4216

== ENCOUNTER → 2018-02-20 10:27 | Outpatient (CLI) | payer MEDICAID, SELFPAY | PROVIDERS: Family Provider Family Medicine; PCP Family Medicine; Visit Provider Family Medicine | DX: R00.2 Palpitations (principal); I49.9 Cardiac arrhythmia, unspecified | CPT/HCPCS: 93225; 93226 ==

== ENCOUNTER 2018-09-23 08:43 | Emergency (ER) | payer MEDICAID, SELFPAY ==
[2018-09-23 08:43] VITALS: BP 119/75; PULSE 61; RESP 22; TEMP 36.6; O2SAT 99; BMI 26.5
--- NOTE | 2018-09-23 09:01 | EKG12_ITS ---
Test Reason : CP Blood Pressure : / mmHG Vent. Rate : 046 BPM Atrial Rate : 046 BPM P-R Int : 124 ms QRS Dur : 090 ms QT Int : 440 ms P-R-T Axes : 033 055 061 degrees QTc Int : 385 ms Sinus bradycardia Otherwise normal ECG Confirmed by FREDY WASHINGTON, CARROLL ([id number]), legal editor THAIS MATA ([id number]) on 09/24/2018 2:17:43 PM Referred By: HAIR/LE Confirmed By:CARROLL DANIEL MD
--- NOTE | 2018-09-23 09:01 | RAD_ITS ---
STUDY: X-RAY CHEST REASON FOR EXAM: Female, 43 years old. Chest pain, questionable hiatal hernia TECHNIQUE: Single PA view of the chest. COMPARISON: None. FINDINGS: The lungs are clear and expanded. There is no demonstrated pleural abnormality. Normal size heart. Normal mediastinum and pura. Normal visualized pulmonary arteries. Normal visualized aortic arch and descending thoracic aorta. Normal visualized thoracic spine. Normal visualized ribs, clavicles, and shoulders. There is no demonstrated abnormality of the visualized soft tissue structures of the upper abdomen. RAD/Chest 1 View (Portable) IMPRESSION: Normal x-ray examination of the chest. Electronically Signed: Winnie Keane, at 9:40 EDT Tel , Service support ,
--- NOTE | 2018-09-23 09:15 | ED.VISSUMM ---
- ER Visit Summary Date of Service: 09/23/18 Chief Complaint: Chest pain History of Present Illness: The patient is a 43 F who states that she was driving into work today when she developed a sudden sharp midsternal epigastric pain that is also located in the left mid thoracic back. Is worse with movement and touch. Is worse with deep breathing. She notes that she was recently treated for H. pylori following an EGD. She denies any previous history of DVT or. She states she is very concerned about her heart as her father in the fall of last year from an [place]. Personal familial history of aortic dissection or aneurysm. Physical Examination: Afebrile vital signs are stable Gen: Well-nourished well-developed Head: Normocephalic atraumatic Eyes: Perrl EOMI ENT: TMs clear no rhinorrhea moist mucous membranes Neck: Supple no lymphadenopathy no JVD nontender CVS: Regular rate rhythm no murmurs normal S1-S2 Respiratory: No distress clear to auscultation bilaterally tenderness along the left costochondral border as well as the paraspinal musculature of the mid thoracic back. Pain can be reproduced with sitting up Abdomen: Soft nontender nondistended normal bowel sounds no masses Back: Nontender Extremity: Nontender no edema Skin: Normal color no rash Neuro: alert orientated ?3 CN II-XII intact normal strength sensation reflexes gait cerebellar Psych: Normal affect normal mood Test Results: EKG demonstrates a sinus bradycardia at a rate of 46. This appears unchanged from an EKG from February 2018. CBC and chemistries were negative. Troponin less than 0.015. Test x-ray is negative. Emergency Department Course and Treatment: Patient received Toradol for pain. I do not believe this to be PE dissection acute coronary syndrome. Her pain is easily reproducible. Patient be discharged home with instructions for anti-inflammatories and low-dose Valium for muscle relaxation. She is to use heat and gentle stretching. Impression: 1. Chest wall pain This note was generated with [employer] dictation software. It may contain incorrect words, spelling, and punctuation that were not noted in review of the chart prior to signing ED Disposition - Plan for ED Patient: Disposition: Home or Assisted Living Instructions: ED Chest Pain NonCardiac Prescriptions: Diazepam [Valium] 5 mg PO Q8 PRN #10 tablet PRN Reason: Muscle Spasm Ibuprofen [Motrin] 800 mg PO TID PRN PRN #20 tablet PRN Reason: Pain Referrals: Ziggy Mckeon MD [Primary Care Provider] - 1 Week if not improving
--- NOTE | 2018-09-23 09:19 | ED.DCSUM_ITS ---
- ER Visit Summary Date of Service: 09/23/18 Chief Complaint: Chest pain History of Present Illness: The patient is a 43 F who states that she was driving into work today when she developed a sudden sharp midsternal epigastric pain that is also located in the left mid thoracic back. Is worse with movement and touch. Is worse with deep breathing. She notes that she was recently treated for H. pylori following an EGD. She denies any previous history of DVT or. She states she is very concerned about her heart as her father in the fall of last year from an [place]. Personal familial history of aortic dissection or aneurysm. Physical Examination: Afebrile vital signs are stable Gen: Well-nourished well-developed Head: Normocephalic atraumatic Eyes: Perrl EOMI ENT: TMs clear no rhinorrhea moist mucous membranes Neck: Supple no lymphadenopathy no JVD nontender CVS: Regular rate rhythm no murmurs normal S1-S2 Respiratory: No distress clear to auscultation bilaterally tenderness along the left costochondral border as well as the paraspinal musculature of the mid thoracic back. Pain can be reproduced with sitting up Abdomen: Soft nontender nondistended normal bowel sounds no masses Back: Nontender Extremity: Nontender no edema Skin: Normal color no rash Neuro: alert orientated ?3 CN II-XII intact normal strength sensation reflexes gait cerebellar Psych: Normal affect normal mood Test Results: EKG demonstrates a sinus bradycardia at a rate of 46. This appears unchanged from an EKG from February 2018. CBC and chemistries were negative. Troponin less than 0.015. Test x-ray is negative. Emergency Department Course and Treatment: Patient received Toradol for pain. I do not believe this to be PE dissection acute coronary syndrome. Her pain is easily reproducible. Patient be discharged home with instructions for anti- inflammatories and low-dose Valium for muscle relaxation. She is to use heat and gentle stretching. Impression: 1. Chest wall pain This note was generated with [employer] dictation software. It may contain incorrect words, spelling, and punctuation that were not noted in review of the chart prior to signing ED Disposition - Plan for ED Patient: Disposition: Home or Assisted Living Instructions: ED Chest Pain NonCardiac Prescriptions: Diazepam [Valium] 5 mg PO Q8 PRN #10 tablet PRN Reason: Muscle Spasm Ibuprofen [Motrin] 800 mg PO TID PRN PRN #20 tablet PRN Reason: Pain Referrals: Ziggy Mckeon MD [Primary Care Provider] - 1 Week if not improving
[2018-09-23 09:23] LABS: Absolute Lymphocyte Count 3.11 X10^3/ul (0.83-4.51); Absolute Neutrophil Count 4.1 X10^3/uL (2.0-7.7); Basophil# 0.05 X10^3/uL; Basophil% 0.6 % (0-1); Eosinophil# 0.39 X10^3/uL; Eosinophils% 4.9 % (0-5); Hematocrit 42.5 % (37-47); Hemoglobin 13.9 g/dl (12.0-15.0); Lymphocyte # 3.11 X10^3/ul (4.0); Lymphocyte % 39.1 % (19-41); Mean Corp Hgb Conc 32.7 g/gl (32-36); Mean Corpuscular Hgb 29.2 pg (27.0-32.0); Mean Corpuscular Volume 89.3 fL (81-99); Mean Platelet Vol. 8.8 fl (6.2-12.0); Monocyte# 0.29 X10^3/uL; Monocyte% 3.6 % (0-10); Neutrophil # 4.11 X10^3/uL (2.7-7.7); Neutrophil % 51.7 % (47-70); POSITIVE COUNT NO; POSITIVE DIFFERENTIAL NO; POSITIVE MORPHOLOGY NO; Platelet Count 265 K/mm3 (150-450); RBC Distribution Width CV 13.1 % (11.6-14.6); RBC Distribution Width SD 42.7 fl (35.1-43.9); Red Blood Count 4.76 M/mm3 (4.2-5.4)
[2018-09-23] MEDS: Ketorolac 30 MG/ML Syringe IV (09:31)
[2018-09-23 09:39] LABS: Anion Gap 5 (5-15); BUN 10 mg/dL (7-18); BUN/Creat Ratio 14.2 RATIO (10-20); Calcium,Total 8.5 mg/dL (8.5-10.1); Chloride 113 mmol/L (98-107); EST Glomerular Filtration Rate 97 mL/min (>60); Est Glom Filt Rate - Afr Amer 117 mL/min (>60); Estimated Creatinine Clearance 86.61 ml/min; Glucose 101 mg/dL (74-106); Potassium 3.7 mmol/L (3.5-5.1); Sodium Level 143 mmol/L (136-145)
[2018-09-23 10:15] VITALS: BP 125/74; PULSE 53; RESP 12; O2SAT 100
== END 2018-09-23 10:16 | disposition home or self-care (01) ==
PROVIDERS: Emergency Provider Emergency Medicine; Family Provider Family Medicine; PCP Family Medicine
DX: R07.89 Other chest pain (principal); K21.9 Gastro-esophageal reflux disease without esophagitis; Z82.49 Family history of ischemic heart disease and other diseases of the circulatory system; Z72.0 Tobacco use
CPT/HCPCS: 71045; 80048; 84484; 85025; 93005; 96374; 99285; A4216

== ENCOUNTER → 2019-01-20 | Outpatient (CLI) | payer MEDICAID, SELFPAY ==
--- NOTE | 2019-01-20 07:26 | BI_ITS ---
MAMMOGRAPHY - BILATERAL SCREENING REASON FOR EXAM: Female, 43 years old. Routine annual screening examination. PERTINENT HISTORY: Aunt with breast cancer. TECHNIQUE: Digital bilateral breast perry (3D mammographic acquisition) in the CC and MLO projections. 2-D mediolateral oblique (MLO) and craniocaudad (CC) views of both breasts were obtained. CAD: Full Field Digital Mammography with Computer Added Detection was performed. COMPARISON: Comparison is made with prior study dated January 19, 2018. FINDINGS: Breast Composition: The breasts are heterogeneously dense, which may obscure small masses. There are no dominant masses or suspicious calcifications. No other significant abnormalities are identified. There has been no significant change since the prior study. BI/SCREEN MAMM (CAD) W/PERRY BILAT IMPRESSION: Stable bilateral screening mammogram. Yearly follow-up mammogram recommended. (A) ASSESSMENT CATEGORY: BIRADS Category 1: Negative. A letter regarding these results will be sent to the patient by the facility within 30 days. Approximately 10% of breast cancers are not detected by mammography. A normal mammogram should not delay biopsy of a clinically suspicious abnormality. [id number] Electronically Signed: Ponce Pineda, at 9:25 EDT , Service support ,
== END | disposition home or self-care (01) ==
LOC: OPBI 07:23
PROVIDERS: Family Provider Family Medicine; PCP Family Medicine; Referring Provider Obstetrics & Gynecology; Visit Provider Obstetrics & Gynecology
DX: Z12.31 Encounter for screening mammogram for malignant neoplasm of breast (principal)
CPT/HCPCS: 77063; 77067

== ENCOUNTER 2019-03-06 08:22 | Emergency (ER) | payer MEDICAID, SELFPAY ==
[2019-03-06 08:22] VITALS: BP 120/75; PULSE 47; RESP 11; TEMP 36; O2SAT 100; BMI 25.7
--- NOTE | 2019-03-06 08:35 | RAD_ITS ---
STUDY: X-RAY CHEST REASON FOR EXAM: Female, 44 years old. Anterior chest pain and chest pressure. The patient is postoperative. TECHNIQUE: Single AP portable view of the chest. COMPARISON: Comparison is made with prior study dated September 23, 2018. FINDINGS: EKG electrodes are seen. The lungs are clear and expanded. There is no demonstrated pleural abnormality. Normal size heart. Normal mediastinum and pura. Normal visualized pulmonary arteries. Normal visualized aortic arch and descending thoracic aorta. Normal visualized thoracic spine. Normal visualized ribs, clavicles, and shoulders. There is no demonstrated abnormality of the visualized soft tissue structures of the upper abdomen. RAD/Chest 1 View (Portable) IMPRESSION: Normal x-ray examination of the chest. Electronically Signed: Ponce Pineda, at 8:54 EDT , Service support ,
[2019-03-06 08:36] LABS: Absolute Neutrophil Count 3.8 X10^3/uL (2.0-7.7); Basophil# 0.04 X10^3/uL; Basophil% 0.5 % (0-1); Eosinophil# 0.34 X10^3/uL; Eosinophils% 3.9 % (0-5); Hematocrit 44.8 % (37-47); Hemoglobin 15.2 g/dL (12.0-15.0); Mean Corp Hgb Conc 33.9 g/dL (32-36); Mean Corpuscular Hgb 30.3 pg (27.0-32.0); Mean Corpuscular Volume 89.2 fL (81-99); Mean Platelet Vol. 8.3 fl (6.2-12.0); Monocyte# 0.45 X10^3/uL; Monocyte% 5.2 % (0-10); NRBC Flagged by Analyzer 0 % (0-5); Neutrophil # 3.84 X10^3/uL (2.7-7.7); Neutrophil % 44.2 % (47-70); Platelet Count 276 K/mm3 (150-450); RBC Distribution Width SD 39.2 fl (35.1-43.9); Red Blood Count 5.02 M/mm3 (4.2-5.4); White Blood Count 8.7 K/mm3 (4.4-11.0)
[2019-03-06 08:51] LABS: Anion Gap 9 (5-15); BUN 9 mg/dL (7-18); Calcium,Total 9.1 mg/dL (8.5-10.1); Chloride 105 mmol/L (98-107); EST Glomerular Filtration Rate 64 mL/min (>60); Est Glom Filt Rate - Afr Amer 78 mL/min (>60); Estimated Creatinine Clearance 60.01 ml/min; Glucose 132 mg/dL (74-106); Lipase 127 U/L (73-393); Potassium 3.4 mmol/L (3.5-5.1); Sodium Level 139 mmol/L (136-145)
[2019-03-06] MEDS: Aspirin 81 MG TAB.CHEW 324 MG PO (09:09)
[2019-03-06] MEDS: Mag Hydrox/Al Hydrox/Simeth 30 ML UDC PO (09:09)
[2019-03-06] MEDS: 0.9% Normal Saline 1,000 ML 150 ML IV (09:10)
[2019-03-06] MEDS: Ondansetron 4 MG/2 ML Vial IV (09:10)
--- NOTE | 2019-03-06 09:15 | ED.DCSUM_ITS ---
History of Present Illness Chief Complaint: Chest Pain Informant: Patient Onset: Today Context: Sudden Onset Timing: Intermittent Current Severity: Moderate Maximum Severity: Moderate Narrative: Patient presents with sudden onset midepigastric pain that radiates into her chest. The patient has a history of esophageal spasm and states this feels similar. She has no history of coronary vascular disease. She states that she is on Zantac and Prilosec. She has had barium swallow, endoscopy, and multiple GI evaluations for the same. She states she was driving and felt this twisting in her mid chest and felt mildly nauseated. She states the spasms have been getting more frequent in nature. She denies any fevers. She denies any vomiting. She had normal bowel movements. Prior similar symptoms: Yes Recent Illness/Hospitalization: No Past Medical History - Allergies and Home Meds Allergies/Adverse Reactions: Allergies hydromorphone HCl [From Dilaudid] Allergy (Verified 03/06/19 08:25) Anaphylaxis morphine Allergy (Verified 03/06/19 08:25) Anaphylaxis meloxicam Adverse Reaction (Verified 03/06/19 08:25) Nausea tramadol [From Ultram] Adverse Reaction (Verified 03/06/19 08:25) Other Primary Care Physician: Ziggy Mckeon MD [Primary Care Provider] - Prior records reviewed: Yes Past Medical History: - Surgical History: cholecystectomy, - - 3 knee surgeries hysterectemy, laparoscopy. Smoking Status: Current every day smoker Alcohol: None - Family History Paternal Family History: Family History (Last Reviewed 01/27/18 @ 10:50 by Marivel Alas) Other CVA (cerebral vascular accident) Cancer Diabetes Hypertension Family History: Reports: Heart Disease Review of Systems General: Denies: Chills, Fever, Sweats Eyes: Denies: Visual changes - bilaterally, Diplopia ENT: Denies: Rhinorrhea, Sore throat Cardiovascular: Reports: Chest pain. Denies: Palpitations Respiratory: Denies: Dyspnea, Cough, Dyspnea on exertion Gastrointestinal: Reports: Abdominal pain, Nausea. Denies: Vomiting, Diarrhea, Melena, Hematochezia Genitourinary: Denies: Dysuria, Hematuria, Frequency Musculoskeletal: Denies: Back pain, Extremity Pain Skin: Denies: Rash, Wounds Neurological: Denies: Headache, Weakness, Numbness Physical Exam Vital Signs/Narrative: Vital Signs Temp Pulse Resp BP Pulse Ox 03/06/19 08:22 96.8 F L 47 L 11 L 120/75 100 Inital Vital Signs reviewed: Yes General: Well nourished, Well developed, No Acute Distress Head: Normocephalic, Atraumatic Eyes: Perrl, EOMI ENT: Moist mucous membranes, No rhinorrhea Neck: Supple, Nontender Cardiovascular: Regular rate, Regular rhythm, No murmurs Respiratory: No distress, CTA bilaterally, Chest nontender Abdomen: Soft, Nondistended, Normal bowel sounds, Tender. Negative for: Guarding, Rebound tenderness Back: Nontender, Normal Inspection Extremities: Nontender, No edema Skin: Normal color, No rash Neurological: Alert, Oriented x3, Cranial nerves II-XII grossly intact, Normal Strength, Normal Sensation Psychological: Normal affect, Normal Mood Diagnostic/Tx/Re-eval Chest X-Ray - ED: 1 View, Read by ED Physician, Normal, Heart, Lungs, Mediastinum Clinical Impression(s) from Imaging Studies Chest X-Ray 03/06/19 08:35 IMPRESSION: Normal x-ray examination of the chest. Electronically Signed: Ponce Pineda, at 8:54 EDT , Service support , Abnormal Lab Results 03/06/19 03/06/19 08:30 08:30 WBC 8.7 RBC 5.02 Hgb 15.2 H Hct 44.8 MCV 89.2 MCH 30.3 MCHC 33.9 RDW Std Deviation 39.2 RDW Coeff of Ernesto 12.0 Plt Count 276 MPV 8.3 Immature Gran % (Auto) 0.200 Neut % (Auto) 44.2 L Lymph % (Auto) 46.0 H [place] % (Auto) 5.2 Eos % (Auto) 3.9 Baso % (Auto) 0.5 Absolute Neuts (auto) 3.8 Absolute Lymphs (auto) 4.00 Nucleated RBC % 0 Sodium 139 Potassium 3.4 L Chloride 105 Carbon Dioxide 25.0 Anion Gap 9 BUN 9 Creatinine 1.00 Estim Creat Clear Calc 60.01 Est GFR (MDRD) Af Amer 78 Est GFR (MDRD) Non-Af 64 BUN/Creatinine Ratio 9.0 L Glucose 132 H Calcium 9.1 Magnesium 2.0 Troponin I < 0.015 Lipase 127 - Rhythm Strip Rhythm Strip: Sinus Rhythm Rate: 55 Ectopy: None - EKG Initial EKG Interpretation: Sinus Rhythm, No Acute Injury Pattern Prior: Unchanged - Medical Decision Making The patient presents with midepigastric pain and history of esophageal spasm. EKG was obtained on patient arrival. Demonstrated sinus bradycardia which patient has history of. There is no acute ischemic change. Without any intervention, the patient's pain had totally resolved. I did obtain a metabolic work-up which is unremarkable. The patient has no risk factor for coronary vascular disease. She has a heart score of 0. She does have history of esophageal spasm this presented similar. Really do not feel that she requires more cardiac work-up. She is now pain-free. I am going to add Carafate to her regimen and she will continue outpatient follow-up. I did industrial relations counselor her that sometimes nitrates or calcium channel blockers are helpful, but the patient is already bradycardic it if we can avoid medications that can have cardiac side effects I think this would be reasonable. She is agreeable with this plan of care and will be discharged home. Impression 1. Esophageal spasm ED Disposition - Plan for ED Patient: Instructions: CHEST PAIN, NonCardiac Prescriptions: Sucralfate [Carafate] 1 gm PO 4X/DAY #60 tab Prescription Printed Referrals: Ziggy Mckeon MD [Primary Care Provider] -
[2019-03-06 09:16] VITALS: O2SAT 100
[2019-03-06 09:30] VITALS: BP 130/87; PULSE 50; RESP 17; O2SAT 98
== END 2019-03-06 09:31 | disposition home or self-care (01) ==
LOC: ED 08:50
PROVIDERS: Emergency Provider Emergency Medicine; Family Provider Family Medicine; PCP Family Medicine
DX: K22.4 Dyskinesia of esophagus (principal); F17.200 Nicotine dependence, unspecified, uncomplicated
CPT/HCPCS: 71045; 80048; 83690; 83735; 84484; 85025; 93005; 96361; 96374; 99285; J7030; A4216; J2405

== ENCOUNTER 2019-06-02 08:36 | Emergency (ER) | payer MEDICAID, SELFPAY ==
[2019-06-02 08:37] VITALS: BP 105/62; PULSE 87; RESP 17; TEMP 36.9; O2SAT 98; BMI 24.0
--- NOTE | 2019-06-02 09:09 | EKG12_ITS ---
Test Reason : ABD PAIN Blood Pressure : / mmHG Vent. Rate : 074 BPM Atrial Rate : 074 BPM P-R Int : 134 ms QRS Dur : 090 ms QT Int : 376 ms P-R-T Axes : 058 046 054 degrees QTc Int : 417 ms Normal sinus rhythm Normal ECG Confirmed by FREDY WASHINGTON, CARROLL ([id number]), videotape editor SHERRI REYNOLDS ([id number]) on 06/04/2019 11:31:05 AM Referred By: BLAS Confirmed By:CARROLL DANIEL MD
--- NOTE | 2019-06-02 09:09 | ED.VIS.GEN ---
History of Present Illness Chief Complaint: Abd Pain Informant: Patient Onset: Days - 5 Context: Gradual Onset Timing: Intermittent Narrative: Patient is a 44-year-old female with history of anxiety and chronic back pain presenting with abdominal pain and cough. Patient states 5 days ago she had an episode of cramping abdominal pain and significant diarrhea. She states when she was on the toilet she passed out twice because of the pain. Patient states she is having pain in her epigastric region. She describes it as sharp and it radiates around to her back. She notes the next day she started coughing. Her cough is been productive of some brown and green sputum. She has had some episodes of posttussive emesis. She initially did not have nasal congestion and 2 days ago started having bloody nasal drainage. Denies any actual epistaxis. She states that she has blood in her mucus when she knows. The pain has persisted and seems to be worse when she sits up or when she eats. She has not been able to eat much. She feels her diarrhea has resolved. Patient was good to go to urgent care but because of the severity of her pain she came to the ER instead today. She notes 2 weeks ago she had a physical show hematuria. No signs of urinary tract. She denies any other complaints at this time. She denies any associated fever or chills. Past Medical History - Allergies and Home Meds Allergies/Adverse Reactions: Allergies hydromorphone HCl [From Dilaudid] Allergy (Verified 06/02/19 08:37) Anaphylaxis morphine Allergy (Verified 06/02/19 08:37) Anaphylaxis meloxicam Adverse Reaction (Verified 06/02/19 08:37) Nausea tramadol [From Ultram] Adverse Reaction (Verified 06/02/19 08:37) Other Primary Care Physician: Ziggy Mckeon MD [Primary Care Provider] - Past Medical History: - - axiety, chronic back pain Surgical History: cholecystectomy, - - 3 knee surgeries hysterectemy, laparoscopy. Smoking Status: Current every day smoker Alcohol: None Drugs: None - Family History Paternal Family History: Family History (Last Reviewed 01/27/18 @ 10:50 by Marivel Alas) Other CVA (cerebral vascular accident) Cancer Diabetes Hypertension Family History: Reports: Heart Disease Review of Systems General: Reports: Malaise. Denies: Chills, Fever, Sweats Eyes: Denies: Visual changes - bilaterally, Diplopia ENT: Denies: Rhinorrhea, Sore throat Cardiovascular: Denies: Chest pain, Palpitations Respiratory: Reports: Cough, Sputum. Denies: Dyspnea, Dyspnea on exertion Gastrointestinal: Reports: Abdominal pain, Nausea, Vomiting, Diarrhea. Denies: Melena, Hematochezia Genitourinary: Denies: Dysuria, Hematuria, Frequency Musculoskeletal: Reports: Back pain. Denies: Extremity Pain Skin: Denies: Rash, Wounds Neurological: Denies: Headache, Weakness, Numbness Physical Exam Vital Signs/Narrative: Vital Signs Temp Pulse Resp BP Pulse Ox 06/02/19 08:37 98.4 F 87 17 105/62 98 Inital Vital Signs reviewed: Yes General: Well nourished, Well developed, No Acute Distress Head: Normocephalic, Atraumatic Eyes: Perrl, EOMI ENT: Moist mucous membranes, No rhinorrhea Neck: Supple, Nontender, No JVD Cardiovascular: Regular rate, Regular rhythm, No murmurs Respiratory: No distress, CTA bilaterally, Chest nontender Abdomen: Soft, Nondistended, Normal bowel sounds, Tender - epigastric and LUQ. Negative for: Guarding, Rebound tenderness, Joya's sign Back: Nontender, Normal Inspection Extremities: Nontender, No edema Skin: Normal color, No rash Neurological: Alert, Oriented x3, Cranial nerves II-XII grossly intact, Normal Strength, Normal Sensation Psychological: Normal affect, Normal Mood Diagnostic/Tx/Re-eval Chest X-Ray - ED: 2 View, Read by ED Physician, Read by Radiologist, No Acute Disease Clinical Impression(s) from Imaging Studies Chest X-Ray 06/02/19 09:10 IMPRESSION: Normal x-ray examination of the chest. Electronically Signed: Faizan Patel DO at 10:25 EST Tel , Service support , Laboratory Data 06/02/19 06/02/19 06/02/19 09:20 09:20 09:27 WBC 7.4 RBC 5.04 Hgb 15.1 H Hct 46.2 MCV 91.7 MCH 30.0 MCHC 32.7 RDW Std Deviation 42.2 RDW Coeff of Ernesto 12.5 Plt Count 307 MPV 8.6 Immature Gran % (Auto) 0.300 Neut % (Auto) 50.8 Lymph % (Auto) 35.8 [place] % (Auto) 7.0 Eos % (Auto) 5.4 H Baso % (Auto) 0.7 Absolute Neuts (auto) 3.8 Absolute Lymphs (auto) 2.66 Nucleated RBC % 0 Sodium 142 Potassium 3.6 Chloride 107 Carbon Dioxide 29.0 Anion Gap 6 BUN 6 L Creatinine 0.86 Estim Creat Clear Calc 69.77 Est GFR (MDRD) Af Amer 92 Est GFR (MDRD) Non-Af 76 BUN/Creatinine Ratio 7.0 L Glucose 81 Calcium 8.9 Total Bilirubin 0.20 AST 16 ALT 21 Alkaline Phosphatase 94 Troponin I < 0.015 Total Protein 7.5 Albumin 3.8 Globulin 3.7 Albumin/Globulin Ratio 1.0 Lipase 219 Urine Color Yellow Urine Clarity Sl. Cloudy Urine pH 7.0 Ur Specific [place] 1.005 Urine Protein Negative Urine Glucose (UA) Normal Urine Ketones Negative Urine Occult Blood 10 H Urine Nitrite Negative Urine Bilirubin Negative Urine Urobilinogen Normal Ur Leukocyte Esterase Negative Urine RBC 0 SEEN Urine WBC 0 SEEN Ur Squamous Epith Cells 0-5 SEEN Urine Bacteria 0 SEEN Urine Mucus 0 SEEN - Rhythm Strip Rhythm Strip: Sinus Rhythm Rate: 74 Ectopy: None - EKG Initial EKG Interpretation: Sinus Rhythm, - - Normal sinus rhythm at a rate of 74 Normal intervals Normal Normal ST segments Compared to prior EKG patient is no longer bradycardic but otherwise no acute changes. Prior: Unchanged - 03/06/19 - Medical Decision Making Patient was evaluated for abdominal pain. She also has a cough. Pain is in her epigastric region. Patient is initially given fentanyl for pain as she is allergic to Dilaudid and morphine. She is also given fluids and Zofran. She does have improvement of her symptoms. On reevaluation her abdomen is soft and nontender. Work up is largely normal. No signs of dehydration, pancreatitis or acute infection. No free air on her chest x-ray. No signs of pneumonia or fluid overload even. Patient is given a GI cocktail. She does have a history of is possible that her recent vomiting has exacerbated this. She has had significant improvement of her symptoms I do not think imaging is indicated at this time. Patient is counseled on signs and symptoms requiring return to the emergency room. Patient verbalizes agreement and understand this plan. Patient discharged home in stable and improved condition. ED Disposition - Plan for ED Patient: Disposition: Home or Assisted Living Diagnosis: Abdominal pain, Cough Instructions: ABDOMINAL PAIN, Unknown Cause, (Female) Referrals: Ziggy Mckeon MD [Primary Care Provider] - Additional Instructions: You do not have signs of pneumonia on your chest x-ray. Your heart looks healthy today. Consider pancreatitis, kidney injury liver injury. Urinary tract infection. You might have irritation of your stomach or a virus. Continue to take your antacid. Still to a liquid diet until you are feeling better. Follow up with your primary care doctor. Return to the ED with worsening symptoms.
--- NOTE | 2019-06-02 09:10 | RAD_ITS ---
STUDY: X-RAY CHEST REASON FOR EXAM: Female, 44 years old. Cough and shortness of breath TECHNIQUE: PA and lateral views of the chest. COMPARISON: 03/06/2019 FINDINGS: The lungs are clear and expanded. There is no demonstrated pleural abnormality. Normal size heart. Normal mediastinum and pura. Normal visualized pulmonary arteries. Normal visualized aortic arch and descending thoracic aorta. Normal visualized thoracic spine. Normal visualized ribs, clavicles, and shoulders. There is no demonstrated abnormality of the visualized soft tissue structures of the upper abdomen. RAD/Chest PA and Lateral IMPRESSION: Normal x-ray examination of the chest. Electronically Signed: Faizan Patel DO at 10:25 EST Tel , Service support ,
[2019-06-02] MEDS: fentaNYL 100 MCG/2 ML Ampul 50 MCG IV (09:29)
[2019-06-02] MEDS: 0.9% Normal Saline 1,000 ML 1000 ML IV (09:29)
[2019-06-02] MEDS: Ondansetron 4 MG/2 ML Vial IV (09:29)
[2019-06-02 09:31] VITALS: TEMP 36.6
[2019-06-02 09:35] LABS: Bacteria 0 SEEN /hpf (None Seen); Mucous, Urine 0 SEEN /hpf (<or=2+); Red Blood Cells-Urine 0 SEEN /hpf (0-5); White Blood Cells 0 SEEN /hpf (0-5)
[2019-06-02 09:40] LABS: Absolute Lymphocyte Count 2.66 X10^3/uL (0.83-4.51); Absolute Neutrophil Count 3.8 X10^3/uL (2.0-7.7); Basophil# 0.05 X10^3/uL; Basophil% 0.7 % (0-1); Eosinophils% 5.4 % (0-5); Hematocrit 46.2 % (37-47); Hemoglobin 15.1 g/dL (12.0-15.0); Lymphocyte # 2.66 X10^3/ul (4.0); Lymphocyte % 35.8 % (19-41); Mean Corp Hgb Conc 32.7 g/dL (32-36); Mean Corpuscular Volume 91.7 fL (81-99); Mean Platelet Vol. 8.6 fl (6.2-12.0); Monocyte# 0.52 X10^3/uL; NRBC Flagged by Analyzer 0 % (0-5); Neutrophil # 3.79 X10^3/uL (2.7-7.7); Neutrophil % 50.8 % (47-70); Platelet Count 307 K/mm3 (150-450); RBC Distribution Width CV 12.5 % (11.6-14.6); RBC Distribution Width SD 42.2 fl (35.1-43.9); Red Blood Count 5.04 M/mm3 (4.2-5.4); White Blood Count 7.4 K/mm3 (4.4-11.0)
[2019-06-02 09:40] LABS: Color, Urine Yellow (Yellow); Glucose, Dipstick Normal (Normal); Ketone-Dipstick Negative (Negative); Leukocyte Esterase-Dipstick Negative /ul (Negative); Nitrite-Dipstick Negative (Negative); Occult Blood-Urine 10 /ul (Negative); Protein-Dipstick Negative (Negative); Specific Gravity, Urine 1.005 (1.002-1.030); Urine Bilirubin Dipstick Negative (Negative); Urine Clarity Sl. Cloudy (Clear); Urine Urobilinogen Normal (Normal)
[2019-06-02 09:46] LABS: Squamous Epithelial Cells - UA 0-5 SEEN /hpf (5-10)
[2019-06-02 09:58] LABS: AST(SGOT) 16 U/L (15-37); Alanine Aminotransfer ALT/SGPT 21 U/L (13-56); Albumin, Serum 3.8 g/dL (3.2-5.0); Alkaline Phosphatase 94 U/L (45-117); Anion Gap 6 (5-15); BUN 6 mg/dL (7-18); Calcium,Total 8.9 mg/dL (8.5-10.1); Chloride 107 mmol/L (98-107); Creatinine, Serum 0.86 mg/dL (0.55-1.02); EST Glomerular Filtration Rate 76 mL/min (>60); Est Glom Filt Rate - Afr Amer 92 mL/min (>60); Estimated Creatinine Clearance 69.77 ml/min; Globulin 3.7 g/dL (2.2-4.2); Glucose 81 mg/dL (74-106); Lipase 219 U/L (73-393); Potassium 3.6 mmol/L (3.5-5.1); Protein, Total 7.5 g/dL (6.4-8.2); Sodium Level 142 mmol/L (136-145)
[2019-06-02] MEDS: Mag Hydrox/Al Hydrox/Simeth 30 ML UDC PO (11:24)
[2019-06-02 11:57] VITALS: BP 138/70; PULSE 88; RESP 18; O2SAT 99
== END 2019-06-02 12:02 | disposition home or self-care (01) ==
PROVIDERS: Emergency Provider Emergency Medicine; Family Provider Family Medicine; PCP Family Medicine
DX: R10.13 Epigastric pain (principal); R05 Cough; F41.9 Anxiety disorder, unspecified; F17.200 Nicotine dependence, unspecified, uncomplicated
CPT/HCPCS: 71046; 80053; 81001; 83690; 84484; 85025; 93005; 96361; 96374; 96375; 99283; J7030; A4216; J2405

== ENCOUNTER 2019-08-07 16:36 | Emergency (ER) | payer MEDICAID, SELFPAY ==
[2019-08-07 16:37] VITALS: BP 139/87; PULSE 89; RESP 18; TEMP 36.2; O2SAT 100; BMI 23.9
--- NOTE | 2019-08-07 16:47 | CT_ITS ---
STUDY: CT ABDOMEN AND PELVIS WITHOUT CONTRAST REASON FOR EXAM: Female, 44 years old. PT STATED RT HIP PAIN, HX OF HYSTERECTOMY,TUBAL, PAUL, TUBIAL LIGATION, LEFT OVARECTOMY RADIATION DOSAGE (If Supplied By Facility): CTDIvol = ( 6.54 ) mGy, DLP = ( 323.31 ) mGycm TECHNIQUE: Transaxial images were obtained from the dome of the diaphragm to the symphysis pubis without oral contrast, and without intravenous contrast. Sagittal and coronal images were reconstructed. Individualized dose optimization techniques were used for this CT. COMPARISON: Prior study of 01/27/2018 FINDINGS: The study is technically limited, being performed without oral and intravenous contrast. There is a small hazy groundglass density of the right lower lobe, the entirety of which is not in the [id number] of the study. This measures at least 1.2 cm in diameter. This was not seen previously. The visualized portions of the heart are within normal limits. Normal liver. There are surgical clips in the gallbladder fossa consistent with a prior cholecystectomy. Normal spleen. Normal pancreas. Normal bilateral adrenal glands. Normal right kidney. Normal left kidney. Normal visualized stomach. Normal small intestine. There is colonic diverticulosis with no evidence of associated diverticulitis. The appendix is visualized and appears normal. There are calcified plaques of the abdominal aorta and common iliac arteries. Normal inferior vena cava. Normal retroperitoneum. Urinary bladder is empty. There is absence of the uterus consistent with a prior hysterectomy. There is a small umbilical hernia containing fat. Normal osseous structures. CT/Abdomen/Pelvis without Cont IMPRESSION: 1. There is a small hazy groundglass density in the right lower lobe measuring at least 1.2 cm in diameter. This is of unknown etiology or significance. This was not seen on prior CT of 01/27/2018. Nonemergent CT of the thorax with contrast is recommended for further evaluation. 2. Status post cholecystectomy and hysterectomy. 3. There is colonic diverticulosis with no evidence of associated diverticulitis. 4. Small fat-containing umbilical hernia. 5. There is no evidence of nephro or ureterolithiasis, hydronephrosis, or hydroureter. Electronically Signed: Bunny Interiano MD at 18:04 EST , Service support ,
[2019-08-07] MEDS: Ketorolac 30 MG/ML Syringe IV (17:13)
[2019-08-07] MEDS: 0.9% Normal Saline 1,000 ML 150 ML IV (17:14)
[2019-08-07 17:27] LABS: Absolute Lymphocyte Count 3.81 X10^3/uL (0.83-4.51); Absolute Neutrophil Count 3.8 X10^3/uL (2.0-7.7); Basophil# 0.06 X10^3/uL; Basophil% 0.7 % (0-1); Eosinophil# 0.44 X10^3/uL; Eosinophils% 5.3 % (0-5); Hematocrit 43.2 % (37-47); Hemoglobin 13.9 g/dL (12.0-15.0); Lymphocyte # 3.81 X10^3/ul (4.0); Lymphocyte % 45.5 % (19-41); Mean Corp Hgb Conc 32.2 g/dL (32-36); Mean Corpuscular Hgb 28.9 pg (27.0-32.0); Mean Corpuscular Volume 89.8 fL (81-99); Mean Platelet Vol. 8.6 fl (6.2-12.0); Monocyte# 0.26 X10^3/uL; Monocyte% 3.1 % (0-10); NRBC Flagged by Analyzer 0 % (0-5); Neutrophil # 3.79 X10^3/uL (2.7-7.7); Neutrophil % 45.2 % (47-70); Platelet Count 318 K/mm3 (150-450); RBC Distribution Width CV 12.2 % (11.6-14.6); RBC Distribution Width SD 40.4 fl (35.1-43.9); Red Blood Count 4.81 M/mm3 (4.2-5.4); White Blood Count 8.4 K/mm3 (4.4-11.0)
[2019-08-07 17:30] LABS: Mucous, Urine 0 SEEN /hpf (<or=2+); Squamous Epithelial Cells - UA 0 SEEN /hpf (5-10); White Blood Cells 0 SEEN /hpf (0-5)
[2019-08-07 17:38] LABS: Anion Gap 3 (5-15); BUN 13 mg/dL (7-18); BUN/Creat Ratio 16.3 RATIO (10-20); Calcium,Total 9.4 mg/dL (8.5-10.1); Chloride 110 mmol/L (98-107); EST Glomerular Filtration Rate 83 mL/min (>60); Est Glom Filt Rate - Afr Amer 101 mL/min (>60); Estimated Creatinine Clearance 75.01 ml/min; Glucose 91 mg/dL (74-106); Potassium 3.9 mmol/L (3.5-5.1); Sodium Level 142 mmol/L (136-145)
[2019-08-07 18:15] LABS: Color, Urine Yellow (Yellow); Glucose, Dipstick Normal (Normal); Ketone-Dipstick Negative (Negative); Leukocyte Esterase-Dipstick Negative /ul (Negative); Nitrite-Dipstick Negative (Negative); Occult Blood-Urine 10 /ul (Negative); Protein-Dipstick Negative (Negative); Specific Gravity, Urine 1.015 (1.002-1.030); Urine Bilirubin Dipstick Negative (Negative); Urine Clarity Sl. Cloudy (Clear); Urine Urobilinogen Normal (Normal); Urine pH 6.5 (5.0 - 8.0)
--- NOTE | 2019-08-07 18:26 | ED.DCSUM_ITS ---
- ER Visit Summary Date of Service: 08/07/19 Chief Complaint: [Right lower abdominal pain] History of Present Illness: The patient is a 44 F [presents to the emergency department with right lower abdominal pain that started this morning. Patient states initially was just kind a mild and somewhat uncomfortable but progressively worsened. Currently she rates it a 9 out of 10. Patient states pain is worse with walking. Patient states that the pain kind of tends to travel straight through to her right buttock area. She has had no nausea or vomiting. She denies any fever. She denies urinary symptoms. Patient states that kind of feels like ovarian cyst type pain although she has had her ovaries removed and she is had a hysterectomy. No history of kidney stones. No recent illness. No recent injury. She denies any masses in her abdomen.] Physical Examination: [HEENT-PERRLA, EOMI. Cranial nerves II through XII grossly intact. TMs clear. Mucous membranes moist. No adenopathy. Cardiovascular-regular rate and rhythm without murmur or ectopy Lungs-clear to auscultation, chest wall stable without crepitus or subcu emphysema Abdomen-normoactive bowel sounds, soft. Patient has tenderness palpation of the right lower quadrant with some guarding. There is no rebound, rigidity, or peritoneal signs. No masses palpated. No hernias noted. Extremities-intact ?4, normal range of motion, normal pulses, atraumatic] Test Results: [CBC with it was normal. Chemistries unremarkable. Urinalysis was normal. CT scan of the abdomen pelvis showed nothing acute intra-abdominal he however she had a some nondescript density in the right lower lobe and they recommended outpatient CT scan of the chest with IV contrast to evaluate further.] Emergency Department Course and Treatment: [She was given Toradol 30 mg IV and she had good improvement in her pain with that.] Treatment Plan: [She advised to follow-up with her primary care physician in 3 to 5 days. Patient given a prescription for a few [place] for severe pain. Patient also can use naproxen. Patient follow-up with her primary care physician to have CT scan of chest with IV contrast to evaluate the questionable mass in the right lower lobe.] Disposition: [Discharged home in stable condition.] Impression: [Abdominal pain-etiology uncertain] This note was generated with [employer] software. It may contain incorrect words, spelling, and punctuation that were not noted in review of the chart prior to signing ED Disposition - Plan for ED Patient: Referrals: Ziggy Mckeon MD [Primary Care Provider] -
--- NOTE | 2019-08-07 18:28 | ED.DEP ---
ED Disposition - Plan for ED Patient: Instructions: ABDOMINAL PAIN, Unknown Cause, (Female) Prescriptions: Hydrocodone Bitart/Apap 5-325 [[place] 5MG-325MG] 1 tablet PO Q4H PRN PRN 2 Days #10 tablet PRN Reason: Pain Transmission Status: Received by HENRI ASHFORD[address] [place] [address] Referrals: Ziggy Mckeon MD [Primary Care Provider] - 3-5 Days Additional Instructions: see your doctor to have a CT of your chest to evaluate Right Lower Lobe density
[2019-08-07 18:29] LABS: Bacteria RARE /hpf (None Seen); Red Blood Cells-Urine 0-5 SEEN /hpf (0-5)
== END 2019-08-07 18:47 | disposition home or self-care (01) ==
PROVIDERS: Emergency Provider Emergency Medicine; PCP Family Medicine
DX: R10.31 Right lower quadrant pain (principal); Z72.0 Tobacco use
CPT/HCPCS: 74176; 80048; 81001; 85025; 96361; 96374; 99283; J7030; A4216

== ENCOUNTER → 2019-09-02 | Outpatient (CLI) | payer MEDICAID, SELFPAY ==
[2019-08-07 16:37] VITALS: BMI 23.9
--- NOTE | 2019-09-01 08:45 | TISS_PTH ---
PATIENT: JANES WINCHESTER LOC: [facility] U#:[id number] AGE/SX: 44/F ROOM: RE09/02/[address]: Dr. Jesenia Blanca MD : [id number] BED: DIS: 09/02/2019 SPEC #: [id number] RECD: 09/02/19 11:57 STATUS: EWELINA RELashonda #: [id number] TREVOR: 09/01/19 08:[address]: Jesenia Blanca DEPT: SURGICAL PATHOLOGY RECD BY: Oscar Diana ENTERED: 09/02/19 13:09 SP TYPE: Tissue Bx ALEENA DR: MD Ziggy John Tissues: Thyroid gland, NOS Procedures: Surgery Specimen Level IV HEADER OPERATION: Ultrasound-guided left thyroid needle core biopsy PRE-OP DIAGNOSIS: Left thyroid nodule TISSUE SUBMITTED: Left thyroid needle core biopsy MICROSCOPIC DIAGNOSIS Left thyroid, ultrasound-guided needle core biopsy: Consistent with benign colloid nodule. SJ:jami 09/03/19 COMMENT Correlation with clinical, radiologic findings and appropriate follow up are necessary. MICROSCOPIC DESCRIPTION Slides are reviewed. GROSS DESCRIPTION Received is one container labeled with the patient's name and not further designated. The specimen consists of multiple elongated pieces of romeo soft tissue that in aggregate measure 1 x 0.1 x 0.1 cm. The specimen is totally submitted in one cassette. / SJ:jami 09/02/19 TC:5 CPT: 14062
== END | disposition home or self-care (01) ==
LOC: LABSPEC 12:55
PROVIDERS: PCP Family Medicine; Referring Provider Surgery; Visit Provider Surgery
DX: E04.1 Nontoxic single thyroid nodule (principal)
CPT/HCPCS: 88305

== ENCOUNTER 2019-09-07 09:35 | Emergency (ER) | payer MEDICAID, SELFPAY ==
[2019-09-07 09:38] VITALS: BP 110/69; PULSE 80; RESP 19; TEMP 37.2; O2SAT 100; BMI 24.3
--- NOTE | 2019-09-07 09:48 | EKG12_ITS ---
Test Reason : Blood Pressure : / mmHG Vent. Rate : 074 BPM Atrial Rate : 074 BPM P-R Int : 128 ms QRS Dur : 080 ms QT Int : 368 ms P-R-T Axes : 014 048 050 degrees QTc Int : 408 ms Normal sinus rhythm Normal ECG Confirmed by FREDY WASHINGTON, CARROLL ([id number]), loan expeditor THAIS MATA ([id number]) on 09/08/2019 10:17:59 AM Referred By: Confirmed By:CARROLL DANIEL MD
--- NOTE | 2019-09-07 09:48 | RAD_ITS ---
STUDY: X-RAY CHEST REASON FOR EXAM: Female, 44 years old. CHEST PAIN/TIGHTNESS -- SOB -- STARTED LAST NIGHT -- SMOKER TECHNIQUE: PA and lateral views of the chest. COMPARISON: 02 June 2019 FINDINGS: The lungs are clear and expanded. There is no demonstrated pleural abnormality. Normal size heart. Normal mediastinum and pura. Normal visualized pulmonary arteries. Normal visualized aortic arch and descending thoracic aorta. Normal visualized thoracic spine. Normal visualized ribs, clavicles, and shoulders. There is no demonstrated abnormality of the visualized soft tissue structures of the upper abdomen. RAD/Chest PA and Lateral IMPRESSION: No evidence of acute cardiopulmonary process. Electronically Signed: Hans Arthur DO at 10:21 EST , Service support ,
--- NOTE | 2019-09-07 09:49 | ED.VIS.GEN ---
History of Present Illness Chief Complaint: Chest Pain Detail of Chief Complaint: Initially right-sided now central Informant: Patient Onset: Yesterday - Last evening she complained of central chest tightness. Onset 2200, Days - The right-sided pain started a couple of days ago. Context: Sudden Onset Timing: Continuous Quality: Pleuritic and right side and pressure centrally Location: Previously documented Current Severity: Mild Maximum Severity: Moderate Worsened by: The right-sided pain worse if she lies on her right side. Pressure improve Relieved by: Nothing Associated Symptoms: Shortness of breath if supine last evening, otherwise none and no radiation Narrative: Patient is a 44-year-old woman who presents with pleuritic right-sided chest pain that started several days ago. She denies dyspnea. She denies history of VTE. She had a needle biopsy of thyroid last week at Dr. Timmons's office. Total time procedure 5 minutes. The procedure was performed under local. Pathology indicates no cancer. She has no risk factors for PE. The central chest pain started last evening at 2200 while lying in bed. She denied associated symptoms or radiation. Pain improves if she lies on her right side. She also complained of being short of breath when she was supine. She denies history of coronary disease. She denies symptoms of claudication. She states when she walks up or down steps she does not become short of breath has not had chest pain. She denies history of GERD. She denies black or maroon stool. She does admit to smoking 1/2 pack/day. 5 years ago she smoked 1 pack a day. She states father had history of heart problems. Prior similar symptoms: No Recent Illness/Hospitalization: Yes - Thyroid enlargement with recent biopsy - Past Medical History (1) Thyromegaly Status: Acute (2) H. pylori infection Status: Chronic (3) Tobacco dependence Status: Chronic Past Medical History - Allergies and Home Meds Allergies/Adverse Reactions: Allergies hydromorphone HCl [From Dilaudid] Allergy (Verified 09/07/19 09:37) Anaphylaxis morphine Allergy (Verified 09/07/19 09:37) Anaphylaxis meloxicam Adverse Reaction (Verified 09/07/19 09:37) Nausea tramadol [From Ultram] Adverse Reaction (Verified 09/07/19 09:37) Other Primary Care Physician: Ziggy Mckeon MD [Primary Care Provider] - Prior records reviewed: Yes Surgical History: cholecystectomy, - - 3 knee surgeries hysterectemy, laparoscopy. Lives: Spouse/ Significant Other Smoking Status: Current every day smoker Alcohol: None Drugs: None - Family History Paternal Family History: Family History (Last Reviewed 01/27/18 @ 10:50 by Marivel Alas) Other CVA (cerebral vascular accident) Cancer Diabetes Hypertension Family History: Reports: Heart Disease Review of Systems General: Denies: Chills, Fever, Subjective, Sweats Eyes: Denies: Visual changes - bilaterally, Blurred Vision - bilaterally ENT: Denies: Bilateral ear pain, Rhinorrhea, Sore throat Cardiovascular: Reports: Chest pain. Denies: Palpitations, Heart racing Respiratory: Reports: Orthopnea. Denies: Dyspnea, Cough, Sputum, Dyspnea on exertion, Paroxysmal nocturnal dyspnea Gastrointestinal: Denies: Abdominal pain, Nausea, Vomiting, Diarrhea, Melena, Hematochezia Genitourinary: Denies: Dysuria, Hematuria, Frequency Musculoskeletal: Denies: Myalgias, Arthralgias, Neck pain, Back pain, Swelling, Extremity Pain, -, - Skin: Denies: Rash, Wounds Neurological: Denies: Headache, Weakness, Numbness Endocrine: Denies: Polyuria, Polydipsia Hematologic: Denies: Easy bruising, Easy bleeding Physical Exam Vital Signs/Narrative: Vital Signs Temp Pulse Resp BP Pulse Ox 09/07/19 09:38 98.9 F 80 19 H 110/69 100 Inital Vital Signs reviewed: Yes General: Well nourished, Well developed, No Acute Distress Head: Normocephalic, Atraumatic Eyes: Perrl, EOMI ENT: Moist mucous membranes, No rhinorrhea Neck: Supple, Nontender, No lymphadenopathy, No JVD Cardiovascular: Regular rate, Regular rhythm, No murmurs, Normal S1, Normal S2 Respiratory: No distress, CTA bilaterally, Chest nontender Abdomen: Soft, Nontender, Nondistended, Normal bowel sounds, No masses Back: Nontender, Normal Inspection. Negative for: CVA tenderness, Spinal tenderness Extremities: Nontender, No edema, - - There is no asymmetry, swelling, discoloration, leg vein distention, palpable cords or tenderness along the distribution of the deep venous system. Skin: Normal color, No rash, No Trauma. Negative for: Cyanosis, Diaphoresis, Jaundice Neurological: Alert, Oriented x3, Cranial nerves II-XII grossly intact, Normal Strength, Normal Sensation Psychological: Normal affect, Normal Mood Diagnostic/Tx/Re-eval Chest X-Ray - ED: 2 View, Read by ED Physician, Normal, Heart, Lungs, Mediastinum, Bony Structures, No Acute Disease, Chronic Changes Impressions Chest X-Ray 09/07/19 09:48 IMPRESSION: No evidence of acute cardiopulmonary process. Electronically Signed: Hans Arthur, DO at 10:21 EST , Service support , 09/07/19 09:48 Chest PA and Lateral [RAD] Stat Laboratory Results 09/07/19 09/07/19 09:40 09:40 WBC 7.4 RBC 5.37 Hgb 15.9 H Hct 49.2 H MCV 91.6 MCH 29.6 MCHC 32.3 RDW Std Deviation 41.9 RDW Coeff of Ernesto 12.5 Plt Count 352 MPV 8.7 Immature Gran % (Auto) 0.400 Neut % (Auto) 48.8 Lymph % (Auto) 40.1 [place] % (Auto) 5.3 Eos % (Auto) 4.6 Baso % (Auto) 0.8 Absolute Neuts (auto) 3.6 Absolute Lymphs (auto) 2.95 Nucleated RBC % 0 Sodium 141 Potassium 4.5 Chloride 106 Carbon Dioxide 29.0 Anion Gap 6 BUN 12 Creatinine 0.76 Estim Creat Clear Calc 78.95 Est GFR (MDRD) Af Amer 107 Est GFR (MDRD) Non-Af 89 BUN/Creatinine Ratio 15.9 Glucose 88 Calcium 9.3 Troponin I < 0.015 Patient work-up is negative. She was informed the cause of her chest pain is unknown. Since there is no constipation she was treated with NSAIDs for her pleuritic right-sided chest pain. - EKG Initial EKG Interpretation: Sinus Rhythm - EEG reveals a sinus rhythm with a ventricular rate of 74. TX interval 128 ms. QRS duration 80 ms. QT duration 368 ms. [place] is normal. The EKG is normal. Patient is presently having pain. - Medical Decision Making Patient does complain of pleuritic chest pain. Her PERC score is 0. Since PERC score is 0 d-dimer was not obtained. Chest x-ray was obtained to assess for pulmonary pathology and heart failure since she reports orthopnea occurred last evening. EKG was obtained to assess for acute ischemia. Troponin since she has had pain for approximately 12 continuous hours. CBC was obtained to evaluate for anemia. ED Disposition - Plan for ED Patient: Disposition: Home or Assisted Living Diagnosis: Central chest pain, Pleuritic chest pain Instructions: Pleurisy, CHEST PAIN, NonCardiac Prescriptions: Naproxen [Naprosyn] 500 mg PO BID #10 tab Transmission [facility]: [facility] Referrals: Ziggy Mckeon MD [Primary Care Provider] - 3-5 Days if not improving
[2019-09-07 09:56] VITALS: O2SAT 97
[2019-09-07 10:18] LABS: Absolute Lymphocyte Count 2.95 X10^3/uL (0.83-4.51); Absolute Neutrophil Count 3.6 X10^3/uL (2.0-7.7); Basophil# 0.06 X10^3/uL; Basophil% 0.8 % (0-1); Eosinophil# 0.34 X10^3/uL; Eosinophils% 4.6 % (0-5); Hematocrit 49.2 % (37-47); Hemoglobin 15.9 g/dL (12.0-15.0); Lymphocyte # 2.95 X10^3/ul (4.0); Lymphocyte % 40.1 % (19-41); Mean Corp Hgb Conc 32.3 g/dL (32-36); Mean Corpuscular Hgb 29.6 pg (27.0-32.0); Mean Corpuscular Volume 91.6 fL (81-99); Mean Platelet Vol. 8.7 fl (6.2-12.0); Monocyte# 0.39 X10^3/uL; Monocyte% 5.3 % (0-10); NRBC Flagged by Analyzer 0 % (0-5); Neutrophil # 3.59 X10^3/uL (2.7-7.7); Neutrophil % 48.8 % (47-70); Platelet Count 352 K/mm3 (150-450); RBC Distribution Width CV 12.5 % (11.6-14.6); RBC Distribution Width SD 41.9 fl (35.1-43.9); Red Blood Count 5.37 M/mm3 (4.2-5.4); White Blood Count 7.4 K/mm3 (4.4-11.0)
[2019-09-07 10:29] LABS: Anion Gap 6 (5-15); BUN 12 mg/dL (7-18); BUN/Creat Ratio 15.9 RATIO (10-20); Calcium,Total 9.3 mg/dL (8.5-10.1); Chloride 106 mmol/L (98-107); Creatinine, Serum 0.76 mg/dL (0.55-1.02); EST Glomerular Filtration Rate 89 mL/min (>60); Est Glom Filt Rate - Afr Amer 107 mL/min (>60); Estimated Creatinine Clearance 78.95 ml/min; Glucose 88 mg/dL (74-106); Potassium 4.5 mmol/L (3.5-5.1); Sodium Level 141 mmol/L (136-145)
[2019-09-07] MEDS: Naproxen 250 MG Tablet 500 MG PO (11:08)
[2019-09-07 11:14] VITALS: BP 118/69; PULSE 84; RESP 12; O2SAT 99
== END 2019-09-07 11:24 | disposition home or self-care (01) ==
PROVIDERS: Emergency Provider Emergency Medicine; PCP Family Medicine
DX: R07.89 Other chest pain (principal); R07.81 Pleurodynia; R06.01 Orthopnea; E01.0 Iodine-deficiency related diffuse (endemic) goiter; Z86.19 Personal history of other infectious and parasitic diseases; F17.200 Nicotine dependence, unspecified, uncomplicated
CPT/HCPCS: 71046; 80048; 84484; 85025; 93005; 99284; A4216

== ENCOUNTER 2019-11-23 14:56 | Emergency (ER) | payer MEDICAID, SELFPAY ==
[2019-11-23 14:57] VITALS: BP 115/76; PULSE 100; RESP 18; TEMP 36.6; O2SAT 97; BMI 25.7
--- NOTE | 2019-11-23 14:59 | RAD_ITS ---
STUDY: X-RAY - LEFT KNEE REASON FOR EXAM: Female, 44 years old. twisting injury, pain TECHNIQUE: 3 view(s) of the knee. COMPARISON: None. FINDINGS: There is demonstrated tibial tunneling of the proximal tibia and distal femur consistent with ACL reconstruction. Normal visualized proximal tibia and fibula. Normal proximal tibiofibular articulation. There is moderate degenerative arthrosis of the medial femorotibial compartment with moderate joint space narrowing. Normal lateral femorotibial compartment. Normal patellofemoral articulation. Osseous anchor at the proximal metaphysis of the tibia is noted. The soft tissue structures are unremarkable. RAD/Knee 4 or More Views IMPRESSION: Medial joint line degenerative changes with ACL reconstruction with postoperative changes. No evidence of acute osseous injury. Electronically Signed: Hans Arthur DO at 15:40 EDT , Service support ,
--- NOTE | 2019-11-23 15:52 | ED.VISSUMM ---
- ER Visit Summary Date of Service: 11/23/19 Chief Complaint: [Left knee injury] History of Present Illness: The patient is a 44 F [presents to the emergency department complaint of left knee injury that occurred today. Patient states she has had chronic knee problems and has had 3 surgeries on her left knee. 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 She is not having hard time bearing weight. Patient has history of hypothyroidism. No other injuries.] Physical Examination: [HEENT-PERRLA, EOMI. Cranial nerves II through XII grossly intact. TMs clear. Mucous membranes moist. No adenopathy. Cardiovascular-regular rate and rhythm without murmur or ectopy Lungs-clear to auscultation, chest wall stable without crepitus or subcu emphysema Abdomen-normoactive bowel sounds, soft, nontender, no rebound or rigidity, no peritoneal signs. Extremities-intact ?4, normal range of motion, normal pulses, atraumatic. Left knee-no effusion noted. Patient has pain with flexion. She has tenderness over the medial joint line. Ligamentous exam limited secondary to pain however no obvious laxity noted. She did have pain with stress on the medial collateral ligament. Vascularly intact distally.] Test Results: [] X-rays of the left knee obtained showed no fractures or dislocations. She had degenerative changes of the medial compartment. Emergency Department Course and Treatment: [He was given crutches and a knee immobilizer] Treatment Plan: Patient will be referred to orthopedics for follow-up. Patient does not want to file this under workman's comp due to her multiple chronic issues with her left knee. Patient will be given a prescription for [place] for pain. Patient will be given referral to orthopedics.] Disposition: [Discharged home in stable condition] Impression: [Left knee sprain-possible internal derangement] This note was generated with [employer] dictation software. It may contain incorrect words, spelling, and punctuation that were not noted in review of the chart prior to signing ED Disposition - Plan for ED Patient: Referrals: Ziggy Mckeon MD [Primary Care Provider] -
--- NOTE | 2019-11-23 15:55 | DCINST.ED_ITS ---
ED Disposition - Plan for ED Patient: Instructions: ED Meniscal Injury Knee Poss Prescriptions: Hydrocodone Bitart/Apap 5-325 [[place] 5MG-325MG] 1 tab PO Q4H PRN PRN 2 Days #14 tab PRN Reason: Pain Prescription Printed Referrals: Ziggy Mckeon MD [Primary Care Provider] - Candy Lewis DO [STAFF PHYSICIAN] - 3-5 Days
[2019-11-23 16:34] VITALS: PULSE 96; RESP 14; O2SAT 97
== END 2019-11-23 16:35 | disposition home or self-care (01) ==
LOC: ED 15:42
PROVIDERS: Emergency Provider Emergency Medicine; PCP Family Medicine
DX: S83.92XA Sprain of unspecified site of left knee, initial encounter (principal); X50.1XXA Overexertion from prolonged static or awkward postures, initial encounter; Y93.9 Activity, unspecified; Y92.9 Unspecified place or not applicable; E03.9 Hypothyroidism, unspecified; Z72.0 Tobacco use
CPT/HCPCS: 73564; 99284

== ENCOUNTER 2019-12-23 10:06 | Day surgery (SDC) | payer MEDICAID, SELFPAY ==
[2019-12-22 09:48] LABS: Hematocrit 45.5 % (37-47); Hemoglobin 14.5 g/dL (12.0-15.0); Mean Corp Hgb Conc 31.9 g/dL (32-36); Mean Corpuscular Hgb 29.2 pg (27.0-32.0); Mean Corpuscular Volume 91.7 fL (81-99); Mean Platelet Vol. 8.8 fl (6.2-12.0); Platelet Count 315 K/mm3 (150-450); RBC Distribution Width SD 40.2 fl (35.1-43.9); Red Blood Count 4.96 M/mm3 (4.2-5.4); White Blood Count 8.4 K/mm3 (4.4-11.0)
[2019-12-22 12:13] LABS: Probe Check PASS; Specimen Processing Control PASS
--- NOTE | 2019-12-22 15:15 | HP.PCM_ITS ---
History and Physical Date of Admission: 12/23/19 Bernie Chery 1975 ? ? REFERRING PHYSICIAN: Ernesto Rangel (Madhu* ? CHIEF COMPLAINT: left thyroid nodule - 5.6 cm ? HPI: The patient is a 44 year old female presents with large left thyroid nodule.. This was obtained after chest CT incidental finding of enlarged left thyroid nodule. Thyroid function tests were normal. The patient does not swallowing problems. She also notes globus sensation. She denies unusual exposure to radiation. Denies family history of colon cancer. She admits to TOB use. ? US thyroid 08/28/2019 RESULT: The right thyroid lobe measures 4.5 x 1.2 x 1.8 cm. The left thyroid lobe measures 7.2 x 3.7 x 4 cm. The thyroid isthmus measures 3 mm in thickness. Parenchyma: ?Mildly heterogeneous parenchyma. ?Expected vascularity. NODULES: ?Single thyroid nodule detailed below. Nodule #1 Location: ?Left side, majority of left thyroid lobe Size: ?5.6 x 3.6 x 3.9 Characteristics: Vascularity present. ?? ? Composition: ?Solid or almost completely solid, 2 points ?? ? Echogenicity: ?Hypoechoic, 2 points ?? ? Shape: ?[id number], 0 points ?? ? Margin: ?Ill-defined. 0 points ?? ? Echogenic foci: ?None, 0 points ?? ? TI-RADS Category: ?4 ACR Recommendation: ?FNA is recommended. FNA done - benign colloid nodule, however sampling error could be present. Patient has globus symptoms and wishes to have left thyroid nodule removed. She understands that this may not alleviate all her symptoms, and that there are risks with surgery, but she wishes to undergo surgery. ? ? PAST MEDICAL HISTORY ? Esophageal spasm ? ? Follicular lymphoma (HCC) 07/2018 ? H. pylori infection ? ? Hypoglycemia, unspecified ? ? Ovarian cyst ? ? Tobacco use disorder ? ? PAST SURGICAL HISTORY ? COLONOSCOP W/ OR W/O BRSH SPEC ? 10/21/14 ? Colonoscopy ? COLONOSCOP W/ OR W/O BRSH SPEC ? 08/21/2018 ? Colonoscopy ? EGD W/O OR W/BRUSH/WASH ? 08/12/15 ? EGD (MAC) ? EGD W/O OR W/BRUSH/WASH ? 08/21/2018 ? EGD ? H PYLORI ? 2015 ? HYSTERECTOMY HX ? 12/25/14 ? only left ovary remains ? LIGATE FALLOPIAN TUBE ? 1998 ? Tubal ligation ? PAST SURGICAL HISTORY OF Left 2000, 2006 ? ACL repair, x2 in left knee ? PAST SURGICAL HISTORY OF ? ? ? laproscopy, removed ovarian cysts ? PAST SURGICAL HISTORY OF Left 2013 ? left knee menisectomy by Dr. Mcgee ? REMOVAL GALLBLADDER ? 11/17/2014 ? ? STRESS TEST ? 08/2015 ? ? ? Current Outpatient Medications ? ibuprofen (MOTRIN IB) 200 mg tablet Take 400 mg by mouth every 6 hours as needed for Pain. ? Omeprazole 40 mg capsule Take 1 capsule by mouth twice daily before meals. ? blood sugar diagnostic (FREESTYLE LITE STRIPS) test strip Test blood sugar(s) 3 times daily. ? albuterol HFA (VENTOLIN HFA) 90 mcg/actuation inhaler Inhale 2 Puffs as in structed every 4 hours as needed for Wheezing/Shortness of Breath. ? glucagon, human recombinant, (GLUCAGON EMERGENCY KIT, HUMAN,) 1 mg injection Inject 1 mg intravenously one time only for 1 dose. ? Blood-Glucose Meter monitoring kit Glucose Meter of Choice - Kit - Dx: Other DM Code hypoglycemia ? blood sugar diagnostic (BLOOD GLUCOSE TEST) test strip Test blood sugar(s) 1 times daily. Dx: Other DM Code hypoglycemia Insulin: No ? lancets (FREESTYLE LANCETS) 28 gauge misc Test blood sugar(s) 3 times daily. ? buPROPion XL (WELLBUTRIN XL) 150 mg 24 hr tablet Take 1 tablet by mouth once daily. ? nicotine (NICODERM) 21 mg/24 hr Apply 1 Patch as directed every 24 hours. ? nicotine (NICODERM) 14 mg/24 hr Apply 1 Patch as directed every 24 hours. No smoking with patch. ? nicotine (NICODERM) 7 mg/24 hr Apply 1 Patch as directed every 24 hours. ? maalox-lidocaine (GI COCKTAIL) 2:1 liqd Take 10 mL by mouth every 6 hours as needed. (Patient not taking: Reported on 09/01/2019 ? ? ALLERGIES: Dilaudid [Hydromorphone (Bulk)]; Meloxicam; Morphine; Ultram [Tramadol Hcl] ? PERSONAL HISTORY: Social History ?Tobacco Use ? Smoking status: Current Every Day Smoker ? ? Packs/day: 0.50 ? ? Years: 15.00 ? ? Pack years: 7.50 ? ? Types: Cigarettes ? Smokeless tobacco: Never Used Substance Use Topics ? Alcohol use: No ? Drug use: No FAMILY HISTORY ? Cancer Mother ? ? ovarian and uterine ? Diabetes Mother ? ? Cancer Sister ? ? twin sister, ovarian and uterine ? Diabetes Father ? ? Heart disease Father ? ? ? Nursing Notes: Anastacia Castro RN REVIEW OF SYSTEMS: General: The patient denies fatigue, notes weight loss, denies weight gain, denies feeling hot, and notes feelings of cold. Eyes: The patient denies glaucoma, denies eye injury/surgery, wears glasses or contacts. Ear/Nose/Throat: The patient denies allergies, denies hayfever, denies ear infections, and denies bloody noses. Cardiovascular: The patient denies chest pain, denies heart disease, denies high blood pressure,denies cardiac stent, denies prior heart attack, denies irregular heart beat, denies high cholesterol, denies poor circulation, denies heart failure, other cardiac issues, denies claudication, denies cold feet, denies peripheral arterial stent. Respiratory: The patient denies tuberculosis, denies pneumonia, denies frequent cough, denies pulmonary embolism, denies shortness of breath, and denies coughing up blood. Gastrointestinal: The patient notes difficulty swallowing, notes acid reflux, denies ulcers, denies vomiting, denies jaundice/hepatitis, denies gallbladder problems, denies black or tarry stools, denies hemorrhoids, denies bleeding from rectum, denies diverticulitis, denies constipation, notes diarrhea, denies loss of stool control, and notes hernias. Kidney/Bladder: The patient denies kidney stones, denies urine infections, and denies bloody urine. Skin: The patient denies a history of skin cancer, denies bleeding/changing moles, and denies a history of skin rash. Neurologic: The patient denies a history of epilepsy/convulsions, notes headaches, denies head/spinal injuries, and denies stroke/TIA. Psychiatric: The patient denies psychiatric medications, denies depression, and denies voices, denies substance abuse. Endocrine: The patient denies thyroid disorders, denies diabetes, and denies hormonal problems. Hematologic: The patient denies a history of bruising, denies bleeding, and denies anemia, denies blood clots. Infections: The patient denies a history of measles and mumps, denies rheumatic fever, and denies sexually transmitted diseases. Musculoskeletal: The patient denies back pain/injury, denies back problems, denies sciatica, notes knee/foot trouble, notes arthritis, or denies gout. ? PHYSICAL EXAMINATION: General: The patient is 44 year old female, well nourished, well hydrated in no acute distress. The patient is oriented to time, place, and person. VITALS: Blood pressure 118/62, pulse 80, temperature 36.4 ?C (97.5 ?F), temperature source Temporal Artery, weight 63 kg (139 lb), last menstrual period 12/15/2014, SpO2 99 %. Body mass index is 24.62 kg/m?. Head ? Normocephalic. EOM intact with sclera clear and no icterus noted. Mouth with mucus membranes moist. Neck - supple with no jugular venous distention noted. Trachea is midline. No carotid bruits noted. Palpable left thyroid mass. Lungs ? clear to auscultation.. Normal breath sounds . No rales/rhonchi/wheezing noted. No labored breathing noted, such as retractions. No cough heard. Heart ? normal S1 and S2 auscultated. No rubs/clicks/murmurs noted. Regular rate. Abdomen ? soft and benign. Normal bowel sounds. No abdominal bruits noted. No distention noted. No masses noted. Extremities ? no calf tenderness noted. No pitting edema noted. Skin ? normal skin integrity. Lymph ? no cervical adenopathy detected, no supraclavicular adenopathy detected, no axillary adenopathy detected Neurological ? gait normal, no focal deficits noted. Psych ? calm and appropriate RADIOLOGIC STUDIES: As Noted ? ? IMPRESSION: large left thyroid nodule, globus sensation, swallowing difficulties ? PLAN: I have discussed the above with the patient. I have offered left thyroidectomy with isthmusectomy If cancer is found in final diagnosis, patient may need completion thyroidectomy which may require further surgery even after discharge. I have described the surgery to the patient in layman?s terms. I have counseled the patient as to the risks of surgery, including but not limited to: infection, bleeding, seroma, scar tissue, cosmetic deformity, injury to any blood vessels/nerves, injury to the recurrent laryngeal nerves and their sequelae, injury to the parathyroid glands and their sequelae, bleeding requiring further surgery, etc. ? the patient understands. The patient was offered a surgery/procedure. The provider and patient have discussed in detail the risk of exposure to and/or potential harm posed by the COVID-19 virus with having a surgery/procedure at this time versus the risk of delaying the surgery/procedure. It is not possible to know either the risk of delaying the surgery or procedure or chance of getting an infection with perfect accuracy, but a joint decision was made between the patient and the provider to proceed at this time with the scheduled surgery/procedure. I have answered all questions to the patient?s satisfaction and the patient has no further questions. ? Jesenia Blanca MD
[2019-12-23] VITALS (10 sets, daily range): BP systolic 107–153; BP diastolic 58–87; PULSE 57–74; RESP 15–16; TEMP 36.1–36.9; O2SAT 95–100; BMI 26.6
--- NOTE | 2019-12-23 | IMM_PTH ---
PATIENT: JANES WINCHESTER LOC: [facility] [place] U#:[id number] AGE/SX: 44/F ROOM: RE12/23/[address]: Dr. Jesenia Blanca MD : 1975 BED: DIS: 12/24/2019 SPEC #: [id number] RECD: 12/25/19 11:38 STATUS: EWELINA REQ #: [id number] TREVOR: 12/23/19 00:[address]: Jesenia Blanca DEPT: IMMUNOHISTOCHEMISTRY RECD BY: Zuleika Nicolas ENTERED: 12/25/19 11:39 SP TYPE: IMMUNO OTHR DR: MD Dr. Ziggy García MD Tissues: Thyroid gland, NOS Procedures: HBME (initial) CD56 (add) CK19 (add) GAL-3 (add) PHYSICIAN & INSTITUTION [place] [id number] SPECIMEN INFORMATION: Tissue Source: Left thyroid gland Clinical Info: Left thyroid nodule Specimen Number: [id number] #9 CPT code: 10153, 54134 x3 METHODOLOGY: Deparaffinized sections of prefer/formalin-fixed tissue or PAP/DQ stained slides are incubated with monoclonal/polyclonal antibodies/oligonucleotide probes. Localization is made via biotin free immunoperoxidase method. Appropriate controls are performed and reacted as expected. Results on target cell population are indicated in the following table: RESULTS: ANTIBODY / CLONE RESULT Block 9 HBME1 (HBME-1) positive CK19 (A53-B/A2.26) positive GAL3 (9C4) positive CD56 (123C3.D5) positive These tests were developed and their performance characteristics determined by [facility]. They may not have been cleared or approved by the U.S. Food and Drug Administration. The FDA has determined that such clearance or approval is not necessary. The above immunohistochemical/dualISH markers are ordered and reviewed by the Pathologist. INTERPRETATION: Left thyroid gland, lobectomy and isthmusectomy: A hyalinized atypical follicular nodule. SJ:jami 12/26/19 Case has been reviewed in consultation with Dr. Ibarra who concurs with the above diagnosis. IDC:AM
[2019-12-23] MEDS: Lactated Ringers 1,000 ML 75 ML IV ×2 (11:06→14:47)
--- NOTE | 2019-12-23 12:00 | THYROID_PTH ---
PATIENT: JANES WINCHESTER LOC: [facility] [place] U#:[id number] AGE/SX: 44/F ROOM: RE12/23/[address]: Dr. Jesenia Blanca MD : 1975 BED: DIS: 12/24/2019 SPEC #: [id number] RECD: 12/23/19 15:13 STATUS: EWELINA JONATHON #: [id number] TREVOR: 12/23/19 12:[address]: Jesenia Blanca DEPT: SURGICAL PATHOLOGY RECD BY: Oscar Diana ENTERED: 12/24/19 09:01 SP TYPE: THYROID OTHR DR: MD Dr. Ziggy García MD Tissues: Thyroid gland, NOS Procedures: Surgery Specimen Level V HEADER OPERATION: Thyroid lobectomy and isthmusectomy PRE-OP DIAGNOSIS: Left thyroid nodule TISSUE SUBMITTED: Left thyroid gland MICROSCOPIC DIAGNOSIS Left thyroid gland, lobectomy and isthmusectomy: Multinodular goiter with a dominant colloid nodule measuring 4.5 cm in greatest dimension. Chronic inflammation. A hyalinized atypical follicular nodule with focal calcification (0.3 x 0.2 cm). See comment. SJ:jami 12/25/19 COMMENT Immunohistochemistry ([id number]) supports the above diagnosis. Please make reference to previous specimen ([id number]) left thyroid, ultrasound-guided needle core biopsy with diagnosis of consistent with benign colloid nodule. Case has been reviewed in consultation with Dr. Ibarra who concurs with the above diagnosis. IDC:AM MICROSCOPIC DESCRIPTION Slides are reviewed. GROSS DESCRIPTION Received in fixative is one container labeled with the patient's name and designated left thyroid gland. The specimen consists of a thyroid lobectomy specimen and multiple detached pieces of tissue. The entire specimen weighs 28.6 gm. The lobectomy specimen measures 5.5 x 3.8 x 3 cm. Detached pieces of tissue measure in aggregate 2 x 2 x 0.3 cm. A portion of the thyroid lobectomy specimen appears to be partly disrupted. The specimen is inked as follows: anterior margin - blue, posterior margin - black and isthmic margin - yellow. Serial sections reveal a large dominant nodule occupying the middle and lower portion of the lobe measuring 4.5 x 3 x 2.5 cm. Sections of the nodule reveal colloidy cut surfaces. [employer] Ring sections are submitted in 11 cassettes as follows: 1 - detached pieces of tissue, 2-11 - left thyroid lobe (2 containing most superior portion and 11 containing most inferior portion). / JOSE DANIEL:jami 12/24/19 TC:5 CPT: 39430
--- NOTE | 2019-12-23 12:42 | OP.PCM_ITS ---
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 Appropriate time out protocol was followed. She was then placed in the supine position. She was then placed under GETA. The patient was then positioned with arms tucked and appropriate padding, with neck extension, and in the slightly reverse Trendelenburg position. An ultrasound machine was brought up for real time imaging. The US transducer was then brought up and the thyroid was imaged. This was done to ascertain the best location of the incision to be made for optimal exposure and also dimensions of the gland which was measured in maximum dimension of 8 cm. The neck and upper chest were then prepped with a sterile surgical skin preparation and appropriate sterile surgical drapes were placed. The skin and subcutaneous tissues at the site of the incision marked was infiltrated with local anesthetic. The landmarks were identified and a low cervical collar incision was made with a 15 blade scalpel and carried down to the subcutaneous tissues using Bovie in the electrocautery mode. The platysma was divided along the incision and then flaps were created superiorly to the cricoid cartilage level and inferiorly to the sternal notch. The fascia overlying the strap muscles was then divided along the midline. The left thyr oid gland was thus approached. The plane between the thyroid gland anterior and the strap muscles posteriorly was then bluntly dissected. Dissection continued layer by layer. It seemed easiest to approach the superior aspect first. As the lower lobe was the palpated of the left thyroid gland was substernal. To free up the thyroid gland, the middle thyroid vessels was cauterized with the Harmonic scalpel and transected. The superior pole vessels were then ligated adjacent to the thyroid lobe in order to prevent damage to the superior laryngeal nerve. Ligaclips were placed on the blood vessels. The parathyroid gland was identified and care was taken to preserve the blood supply to the parathyroid gland. The superior pole of the gland was thus freed up. The gland was rotated mediall y and dissection continued to separate the thyroid gland using the Harmonic scalpel. Of note, the thyroid gland extended posteriorly to the plane of the esophagus, though it was not densely adherent to it. The inferior pole of the left lobe of the thyroid was then bluntly dissected and was brought out of its substernal position. The inferior pole vessels were identified. The vessels were ligated with ligaclips and then transected with the Harmonic scalpel. The parathyroid gland was identified and care was taken to preserve the blood supply to the parathyroid gland. Careful dissection was done to separate the thyroid gland from the laryngeal nerve. The thyroid gland was then dissected off the trachea and also the isthmus, it was transected using the Harmonic scalpel. The left lobe of the thyroid gland was then forwarded to pathology. Hemostasis was carefully controlled with electrocautery avoiding any injury to the recurrent laryngeal nerves and the parathyroid glands. Surgicel was used for hemostasis. A small TLS drain was then placed in the thyroid bed and brought out through a separate stab incision. The fascia of the strap muscles was then reapproximated along the midline using Vicryl suture. The platysma muscle was then reapproximated in a transverse fashion using interrupted 2-0 Vicryl suture. The skin incision was then reapproximated using 4-0 Monocryl in a running subcuticular fashion. The drain was brought out through the middle portion of the incision and sutured to the skin using nylon suture. The skin closure was reinforced using Dermibond. The patient was then extubated. She was brought to the Recovery Room in stable condition. - Complications none noted - Admit VTE Documentation VTE Present on Admission: Yes VTE Mechan Device Prophylaxis: SCD's
[2019-12-23] MEDS: HYDROcodone Bitartrate/Apap 5/325 Tablet PO (17:26)
--- NOTE | 2019-12-23 20:53 | PCM.DC.GS ---
Discharge Diet: No Restrictions - drink plenty of fluids, can advance self to soft diet and then regular diet at home as tolerated Discharge Activity: Return to Normal Activity, May not drive while taking narcotic pain medications. Call your doctor if your incision/area has: Continuous Slow Oozing, Foul Smelling Discharge Call your doctor if you observe: Fever of 101 or Higher Additional Dressing/Incision Instructions:: Leave dressing in place. Do not soak - no tub baths/swimming. may shower Additional Instructions: Please take TUMS with calcium - two tablets once a day, thank you Allergies/Adverse Reactions: Allergies hydromorphone HCl [From Dilaudid] Allergy (Verified 12/23/19 10:52) Anaphylaxis morphine Allergy (Verified 12/23/19 10:52) Anaphylaxis meloxicam Adverse Reaction (Verified 12/23/19 10:52) Nausea tramadol [From Ultram] Adverse Reaction (Verified 12/23/19 10:52) Other Medications to take at Discharge Omeprazole [Prilosec] 40 mg PO BID 07/26/15 Albuterol Inhaler [Ventolin Hfa (SP)] 1 - 2 puff INHALATION Q6H PRN PRN 12/16/19 Hydrocodone/Acetaminophen [[employer] 5-325 Tablet] 1 each PO Q8H PRN PRN 5 Days #15 tablet 12/24/19 The following prescriptions were given: Hydrocodone/Acetaminophen [[employer] 5-325 Tablet] 1 each PO Q8H PRN PRN 5 Days #15 tablet PRN Reason: Pain Score 4-10/10 Transmission Status: Sent to [facility] Primary Care Physician: Ziggy Mckeon MD [Primary Care Provider] - Test Results: Test results from this visit will be discussed in further detail at your follow-up appointment, if applicable. Please Follow Up With: Jesenia Blanca MD - call When: to be seen in 7-10 days, please call for date and time, thank you
[2019-12-23] MEDS: Acetaminophen 325 MG Tablet 650 MG PO (21:06)
[2019-12-23] MEDS: Pantoprazole Sodium 40 MG Tablet PO (21:48)
[2019-12-24 00:37] VITALS: BP 107/59; PULSE 73; RESP 16; TEMP 36.7; O2SAT 95
[2019-12-24] MEDS: HYDROcodone Bitartrate/Apap 5/325 Tablet PO (00:46)
[2019-12-24] MEDS: Lactated Ringers 1,000 ML 75 ML IV (04:04)
[2019-12-24 04:35] VITALS: BP 111/69; PULSE 65; RESP 18; TEMP 36.6; O2SAT 97
[2019-12-24] MEDS: Acetaminophen 325 MG Tablet 650 MG PO (06:00)
[2019-12-24 07:00] LABS: Calcium,Total 8.3 mg/dL (8.5-10.1)
--- NOTE | 2019-12-24 07:17 | PCM.PN.SRG ---
Subjective: Patient feeling sore, can talk normally but requires effort, also same with swallowing - Physical Exam Vitals/I&O's: Vital Signs Temp Pulse Resp BP Pulse Ox 97.9 F 65 18 111/69 97 12/24/19 04:35 12/24/19 04:35 12/24/19 04:35 12/24/19 04:35 12/24/19 04:35 Oxygen Delivery Method Room Air Weight: 68.3 kg Body Mass Index (BMI) 26.6 Intake and Output for Last 24 Hours 12/22/19 12/23/19 12/24/19 23:59 23:59 23:59 Intake Total 1106 / 1356 1446.25 / 1446.25 Output Total 510 / 528 30 / 30 Balance 596 / 828 1416.25 / 1416.25 General: Alert, Oriented x3 Oral: Moist Mucosa Neck: Supple Abdomen: Soft Comment: Dressing intact, no swelling noted Laboratory Results 12/24/19 05:57: Calcium 8.3 L Current Medications Acetaminophen (Tylenol) 650 mg PO Q4H PRN PRN PRN Reason: Pain Score 1-3/10 Last Admin: 12/24/19 06:00 Dose: 650 mg Documented by: Hydrocodone Bitart/Acetaminophen ([place] 5mg-325mg) 1 tablet PO Q4H PRN PRN PRN Reason: Pain Score 4-10/10 Last Admin: 12/24/19 00:46 Dose: 1 tablet Documented by: Albuterol Sulfate (Ventolin Aerosols) 2.5 mg INHALATION Q4H PRN PRN PRN Reason: SHORTNESS OF BREATH Lactated Ringer's () 1,000 mls @ 75 mls/hr IV .[id number] [facility] Last Admin: 12/24/19 04:04 Dose: 75 mls/hr Documented by: Sodium Chloride () 250 mls @ 15 mls/hr IV .[id number] PRN PRN Reason: Saline Flush Sodium Chloride () 250 mls @ 15 mls/hr IV .[id number] PRN PRN Reason: Additional IVPB Infusion Pantoprazole Sodium (Protonix) 40 mg PO BID [facility] Last Admin: 12/23/19 21:48 Dose: 40 mg Documented by: Sodium Chloride () 10 - 40 ml IV UD PRN PRN Reason: SALINE FLUSH Medical Necessity - Tobacco Use Smoking Status: Current every day smoker Tobacco Use: Cigarettes Assessment/Plan All Active Problems (Last Updated 01/27/18 @ 10:50 by Marivel Alas) Thyromegaly (Acute) Right ankle sprain (Acute) Chest pain (Acute) Cellulitis of left forearm (Acute) Impression: s/p left thyroid lobectomy and isthmusectomy Plan: d/c to home Will follow up in office on Sunday I will call later this week to check on patient ERI - two tablets once a day is encouraged
[2019-12-24 08:36] VITALS: BP 112/71; PULSE 62; RESP 18; TEMP 36.6; O2SAT 98
== END 2019-12-24 09:00 | disposition home or self-care (01) ==
LOC: SDC 10:06 → AC 10:07 → MS3 12-25 09:15
PROVIDERS: Anesthesiology; PCP Family Medicine; Referring Provider Surgery; Visit Provider Surgery
PROC: (CPT 60220; principal; 2019-12-23 11:45)
DX: E04.1 Nontoxic single thyroid nodule (principal); Z11.59 Encounter for screening for other viral diseases; K21.9 Gastro-esophageal reflux disease without esophagitis; F17.210 Nicotine dependence, cigarettes, uncomplicated
CPT/HCPCS: 00320; 60220; 36415; 82310; 85027; 87635; 88307; 88341; 88342; 99406; G2023; J7120; J2405; U0003

== ENCOUNTER 2020-01-12 18:43 | Emergency (ER) | payer MEDICAID, SELFPAY ==
[2019-12-23 16:39] VITALS: BMI 26.6
[2020-01-12 18:45] VITALS: BP 140/87; PULSE 86; RESP 17; TEMP 37.2; O2SAT 98; BMI 26.5
--- NOTE | 2020-01-12 19:06 | EKG12_ITS ---
Test Reason : CP Blood Pressure : / mmHG Vent. Rate : 077 BPM Atrial Rate : 077 BPM P-R Int : 134 ms QRS Dur : 086 ms QT Int : 366 ms P-R-T Axes : 034 055 036 degrees QTc Int : 414 ms Normal sinus rhythm Normal ECG Confirmed by JOSE JUAN WASHINGTON, CAMRYN ([id number]), movie editor SHERRI REYNOLDS ([id number]) on 01/14/2020 10:13:36 AM Referred By: DIANA Confirmed By:CAMRYN MANZANO MD
--- NOTE | 2020-01-12 19:24 | ED.VIS.GEN ---
History of Present Illness Chief Complaint: Chest Pain Detail of Chief Complaint: Sided chest pain with pleuritic component and shortness of breath Informant: Patient Onset: Today, Yesterday Context: Sudden Onset Timing: Continuous - Continuous since onset today at 1800 and associated with left shoulder and arm pain., Intermittent - Intermittent yesterday left-sided chest., Waxes and wanes Quality: Sharp with pleuritic component Location: Left chest today and yesterday, left shoulder and arm today Current Severity: Mild Maximum Severity: Moderate Worsened by: Deep breathing Relieved by: Nothing Associated Symptoms: Diaphoresis, shortness of breath, nausea Narrative: Patient is status post partial thyroidectomy. Patient states there were precancerous cells and the mass was the size of the surgeon's best. She reports acute onset of left-sided pleuritic chest pain yesterday was intermittent. She is had constant pain since 1800. Today there is associated left shoulder and arm pain. Yesterday and today there was associated shortness of breath, diaphoresis and nausea. She has no known history of coronary disease. One family member had massive AL. Uncertain of age. She denies leg pain, swelling or discoloration. She states she gets charley horses right and left calf. She denies fever, chills night sweats. She denies URI symptoms. She denies ocular, visual or auditory symptoms. She denies vomiting, diarrhea. She denies hematemesis, melena medic easier. There is no history of trauma. She denies prior symptoms. Prior similar symptoms: No Recent Illness/Hospitalization: Yes - Past Medical History (1) Thyromegaly Status: Acute (2) Tobacco dependence Status: Chronic Past Medical History - Allergies and Home Meds Allergies/Adverse Reactions: Allergies hydromorphone HCl [From Dilaudid] Allergy (Verified 01/12/20 18:44) Anaphylaxis morphine Allergy (Verified 01/12/20 18:44) Anaphylaxis scopolamine Allergy (Verified 01/12/20 18:44) PT UNSURE OF REACTION pupils dilate really bad meloxicam Adverse Reaction (Verified 01/12/20 18:44) Nausea tramadol [From Ultram] Adverse Reaction (Verified 01/12/20 18:44) Other Primary Care Physician: Ziggy Mckeon MD [Primary Care Provider] - Surgical History: cholecystectomy, - - 3 knee surgeries hysterectemy, laparoscopy. Lives: Alone Smoking Status: Current every day smoker Alcohol: None Drugs: None - Family History Paternal Family History: Family History (Last Reviewed 01/27/18 @ 10:50 by Marivel Alas) Other CVA (cerebral vascular accident) Cancer Diabetes Hypertension Family History: Reports: Heart Disease Review of Systems General: Denies: Chills, Fever, Malaise, Subjective, Sweats, Weight loss, - Eyes: Denies: Visual changes - bilaterally, Blurred Vision - bilaterally ENT: Denies: Rhinorrhea, Sore throat Cardiovascular: Reports: Chest pain. Denies: Palpitations, Heart racing Respiratory: Reports: Dyspnea, Dyspnea on exertion. Denies: Cough, Sputum, Orthopnea, Paroxysmal nocturnal dyspnea Gastrointestinal: Reports: Nausea. Denies: Abdominal pain, Vomiting, Diarrhea, Constipation, Melena, Hematochezia, -, - Genitourinary: Denies: Dysuria, Hematuria, Frequency Musculoskeletal: Reports: Extremity Pain. Denies: Myalgias, Arthralgias, Neck pain, Back pain, Swelling, -, - Skin: Denies: Rash, Wounds Neurological: Denies: Headache, Weakness, Numbness Endocrine: Denies: Polyuria, Polydipsia Hematologic: Denies: Easy bruising, Easy bleeding Allergy: Denies: Uticaria, Swelling of the mouth Physical Exam Vital Signs/Narrative: Vital Signs Temp Pulse Resp BP Pulse Ox 01/12/20 18:45 99.0 F 86 17 140/87 H 98 Inital Vital Signs reviewed: Yes General: Well nourished, Well developed, No Acute Distress Head: Normocephalic, Atraumatic Eyes: Perrl, EOMI ENT: Moist mucous membranes, No rhinorrhea, - - Anterior healing scar without evidence of infection. Trachea is midline. There is no inspiratory expiratory stridor.. Negative for: TM's clear, Dry mucous membranes Neck: Supple, Nontender Cardiovascular: Regular rate, Regular rhythm, No murmurs, Normal S1, Normal S2 Respiratory: No distress, CTA bilaterally, Chest nontender Abdomen: Soft, Nontender, Nondistended, Normal bowel sounds Back: Nontender, Normal Inspection. Negative for: CVA tenderness, Spinal tenderness Extremities: Nontender, No edema, - - There is no asymmetry, swelling, discoloration, leg vein distention, palpable cords or tenderness along the distribution of the deep venous system. Skin: Normal color, No rash Neurological: Alert, Oriented x3, Cranial nerves II-XII grossly intact, Normal Strength, Normal Sensation Psychological: Normal affect, Normal Mood Diagnostic/Tx/Re-eval Impressions Chest X-Ray 01/12/20 19:40 IMPRESSION: No acute pulmonary findings. Electronically Signed: Ziggy Feliciano MD at 19:58 EDT Tel , Service support , Chest CTA 01/12/20 20:11 IMPRESSION: Normal CTA chest examination, without a demonstrated pulmonary embolism or aortic dissection. Electronically Signed: Ziggy Feliciano MD at 20:48 EDT Tel , Service support , 01/12/20 19:40 Chest PA and Lateral [RAD] Stat 01/12/20 20:11 CTA Chest W/WO Contrast [CT] Stat Laboratory Results 01/12/20 01/12/20 01/12/20 19:30 19:30 19:30 WBC 9.0 RBC 4.84 Hgb 14.1 Hct 44.3 MCV 91.5 MCH 29.1 MCHC 31.8 L RDW Std Deviation 41.3 RDW Coeff of Ernesto 12.5 Plt Count 356 MPV 8.7 Immature Gran % (Auto) 0.200 Neut % (Auto) 52.1 Lymph % (Auto) 38.6 [place] % (Auto) 3.5 Eos % (Auto) 5.0 Baso % (Auto) 0.6 Absolute Neuts (auto) 4.7 Absolute Lymphs (auto) 3.49 Nucleated RBC % 0 D-Dimer Quant (PE/DVT) 0.52 H* Sodium 141 Potassium 3.9 Chloride 108 H Carbon Dioxide 28.0 Anion Gap 5 BUN 12 Creatinine 0.80 Estim Creat Clear Calc 75.01 Est GFR (MDRD) Af Amer 100 Est GFR (MDRD) Non-Af 83 BUN/Creatinine Ratio 14.9 Glucose 88 Calcium 9.1 Troponin I < 0.015 They revealed no acute findings. With an elevated d-dimer and recent surgery patient is moderate to high risk for pulmonary embolus. Since she describes pleuritic chest pain with shortness of breath CTA was obtained. CTA reveals no acute pulmonary pathology. Troponin is negative. CBC is unremarkable with no evidence of anemia. Patient was discharged with appropriate home-going instructions for pleuritic chest pain - Medical Decision Making Includes pneumothorax, pneumonia, pulmonary embolus and cardiac ischemia. EKG, chest x-ray and appropriate blood work was obtained to determine etiology of her left-sided pleuritic chest pain. ED Disposition - Plan for ED Patient: Disposition: Home or Assisted Living Diagnosis: Pleuritic chest pain Instructions: ED Chest Pain Pleurisy Referrals: Ziggy Mckeon MD [Primary Care Provider] - As Needed
[2020-01-12 19:34] VITALS: PULSE 74; RESP 14; O2SAT 97
--- NOTE | 2020-01-12 19:40 | RAD_ITS ---
STUDY: X-RAY CHEST REASON FOR EXAM: Female, 44 years old. PLEURITIC CHEST PAIN RADIATING TO LEFT SHOULDER, SOB -- PT HAD PARTIAL THYROIDECTOMY ON 12/23/19 TECHNIQUE: Frontal and lateral views of the chest. COMPARISON: 09/07/2019 FINDINGS: Clips in the neck. The lungs are clear and expanded. There is no demonstrated pleural abnormality. Normal size heart. Normal mediastinum and pura. Normal visualized pulmonary arteries. Normal visualized aortic arch and descending thoracic aorta. Normal visualized thoracic spine. Normal visualized ribs, clavicles, and shoulders. Cholecystectomy clips. RAD/Chest PA and Lateral IMPRESSION: No acute pulmonary findings. Electronically Signed: Ziggy Feliciano MD at 19:58 EDT Tel , Service support ,
[2020-01-12 19:54] LABS: Absolute Lymphocyte Count 3.49 X10^3/uL (0.83-4.51); Absolute Neutrophil Count 4.7 X10^3/uL (2.0-7.7); Basophil# 0.05 X10^3/uL; Basophil% 0.6 % (0-1); Eosinophil# 0.45 X10^3/uL; Hematocrit 44.3 % (37-47); Hemoglobin 14.1 g/dL (12.0-15.0); Lymphocyte # 3.49 X10^3/ul (4.0); Lymphocyte % 38.6 % (19-41); Mean Corp Hgb Conc 31.8 g/dL (32-36); Mean Corpuscular Hgb 29.1 pg (27.0-32.0); Mean Corpuscular Volume 91.5 fL (81-99); Mean Platelet Vol. 8.7 fl (6.2-12.0); Monocyte# 0.32 X10^3/uL; Monocyte% 3.5 % (0-10); NRBC Flagged by Analyzer 0 % (0-5); Neutrophil % 52.1 % (47-70); Platelet Count 356 K/mm3 (150-450); RBC Distribution Width CV 12.5 % (11.6-14.6); RBC Distribution Width SD 41.3 fl (35.1-43.9); Red Blood Count 4.84 M/mm3 (4.2-5.4)
[2020-01-12 20:00] VITALS: PULSE 93; RESP 20; O2SAT 96
[2020-01-12 20:09] LABS: Anion Gap 5 (5-15); BUN 12 mg/dL (7-18); BUN/Creat Ratio 14.9 RATIO (10-20); Calcium,Total 9.1 mg/dL (8.5-10.1); Chloride 108 mmol/L (98-107); EST Glomerular Filtration Rate 83 mL/min (>60); Est Glom Filt Rate - Afr Amer 100 mL/min (>60); Estimated Creatinine Clearance 75.01 ml/min; Glucose 88 mg/dL (74-106); Potassium 3.9 mmol/L (3.5-5.1); Sodium Level 141 mmol/L (136-145)
[2020-01-12 20:11] LABS: D-Dimer Quantitative (DVT/PE) 0.52 FEU/ug/m (0.27-0.49)
--- NOTE | 2020-01-12 20:11 | CT_ITS ---
STUDY: CTA CHEST REASON FOR EXAM: Female, 44 years old. PLEURITIC PAIN/POST OP/DYSPNEA/ELEV DDIMER -- LT NECK,ARM AND CHEST PAIN TODAY -- POST-OP THYROIDECTOMY 12-23-19 RADIATION DOSAGE (If Supplied By Facility): CTDIvol = ( 7.95 ) mGy, DLP = ( 205.00 ) mGycm TECHNIQUE: The examination was performed with the intravenous administration of IV 75mL Isovue-370. Post-processing of the angiographic images was performed, with multiplanar reformation and 3D reconstruction. Individualized dose optimization techniques were used for this CT. COMPARISON: None. FINDINGS: Normal enhancement of the main pulmonary artery and right and left pulmonary arteries. Normal enhancement of the bilateral peripheral pulmonary arteries. There is no demonstrated pulmonary embolism. Normal thoracic aorta and visualized great vessels. There is no demonstrated aortic dissection. Normal heart and pericardium. Normal mediastinum. Normal hilar regions. Normal visualized trachea and bronchi. The lungs are well expanded. Normal pulmonary parenchyma. Normal pleura. Normal chest wall structures. Normal osseous structures. Cholecystectomy. CT/CTA Chest W/WO Contrast IMPRESSION: Normal CTA chest examination, without a demonstrated pulmonary embolism or aortic dissection. Electronically Signed: Ziggy Feliciano MD at 20:48 EDT Tel , Service support ,
--- NOTE | 2020-01-12 20:12 | ED.RN ---
dr arnold notified d dimer 0.52
[2020-01-12 21:25] VITALS: BP 135/81; PULSE 70; RESP 15; O2SAT 100
== END 2020-01-12 21:45 | disposition home or self-care (01) ==
PROVIDERS: Emergency Provider Emergency Medicine; PCP Family Medicine
DX: R07.89 Other chest pain (principal); R06.00 Dyspnea, unspecified; R11.0 Nausea; Z98.890 Other specified postprocedural states; F17.200 Nicotine dependence, unspecified, uncomplicated
CPT/HCPCS: 71046; 71275; 80048; 84484; 85025; 85379; 93005; 99284; Q9967; A4216

== ENCOUNTER → 2020-04-01 11:21 | Outpatient (CLI) | payer MEDICAID, SELFPAY ==
--- NOTE | 2020-04-01 11:24 | VDLE_ITS ---
Procedure LEFT Exam performed in department. GSV is normal. The exam was diagnostic. CFV is compressible, spontaneous, phasic, A preliminary report was called and/or faxed competent, and demonstrates normal to Dr. Mckeon. augmentation. FV is compressible, spontaneous, phasic, competent and demonstrates normal augmentation. POP V is compressible, spontaneous, phasic, competent and demonstrates normal augmentation. T/P Trunk is compressible. PTV is compressible. LT PerV is compressible. Interpretation Summary Deep veins of the left lower extremity are patent and compressible segmentally. There is no evidence of left lower extremity deep vein thrombosis. Valvular competence appears intact within the proximal deep venous system on the left . The left great saphenous vein appears patent and compressible segmentally. Ordering Physician: Ziggy Mckeon Performed By: Edgard Edge RVT
== END ==
PROVIDERS: PCP Family Medicine; Referring Provider Family Medicine; Visit Provider Family Medicine
DX: M79.605 Pain in left leg (principal)
CPT/HCPCS: 93971

== ENCOUNTER 2020-12-28 10:56 | Emergency (ER) | payer MEDICAID, SELFPAY ==
[2020-12-28 10:57] VITALS: BP 110/76; PULSE 98; RESP 16; TEMP 35.9; O2SAT 96; BMI 27.4
--- NOTE | 2020-12-28 11:08 | EDS_ITS ---
HPI History of Present Illness Chief Complaint: Sore Throat Informant: patient Onset/Context/Timing Onset: Days Context: Gradual Onset Timing: Continuous Current Severity: Moderate Maximum Severity: Moderate Narrative Narrative: Patient is a 45-year-old female medical history significant for thyromegaly status post partial thyroidectomy who presents to the emergency department sore throat. Patient states she had upper respiratory symptoms for the past 6 days. She was seen at urgent care. She was diagnosed with a URI. She was placed on prednisone, and inhaler, Tessalon cough suppressant. She states that her cough is gotten better, but over the past 2 days she has had worsening sore throat. She states mostly on the right side. She describes pain with swallowing. She is unsure if she is had fever. She is otherwise been in her normal state of health. [facility] Medical History Anxiety Arthritis Back pain Bruises easily Chest pain Migraines Shoulder pain Home Medications omeprazole 40 mg PO BID 07/26/15 [History Last Taken 12/23/19 06:00] albuterol sulfate 1 - 2 puff INHALATION Q6H PRN PRN 12/16/19 [History Last Taken Unknown] amoxicillin-pot clavulanate 875 mg PO Q12H #20 tablet 12/28/20 [Rx Last Taken Unknown] benzonatate [Tessalon Perles] 200 mg PO TID 12/28/20 [History Last Taken Unknown] ugstozzzrurdmen-ngaicdwwx-LY 10 ml PO 4X/DAY PRN PRN 12/28/20 [History Last Taken Unknown] cholecalciferol (vitamin D3) 1 mcg PO QWEEK 12/28/20 [History Last Taken Unknown] prednisone 10 mg PO DAILY 12/28/20 [History Last Taken Unknown] Allergy/AdvReac Type Severity Reaction Status Date / Time hydromorphone HCl Allergy Anaphylaxis Verified 12/28/20 10:57 [From Dilaudid] morphine Allergy Anaphylaxis Verified 12/28/20 10:57 scopolamine Allergy PT UNSURE Verified 12/28/20 10:57 OF REACTION meloxicam AdvReac Nausea Verified 12/28/20 10:57 tramadol [From Ultram] AdvReac Other Verified 12/28/20 10:57 Family History Other CVA (cerebral vascular accident) Cancer Diabetes Hypertension Surgical History H/O tubal ligation H/O tubal ligation H/O: hysterectomy History of cholecystectomy History of cholecystectomy History of LAVH History of left oophorectomy History of removal of ovarian cyst History of right oophorectomy S/P ACL surgery S/P left knee surgery Social History Smoking Status: Current every day smoker tobacco type: cigarettes Tobacco: How many years used: 12 how long ago did patient quit smokin alcohol intake: never substance use type: does not use caffeine: Yes what type of physical activity do you participate in: walking seatbelt use: always do you feel safe at home: Yes additional social history: - Jv- unemployed 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 ROS ED Constitutional Constitutional ED: Reports chills Eyes Eyes: Denies blurry vision or change in vision ENT ENT ED: Reports rhinorrhea and sore throat Cardiovascular Cardiovascular: Denies chest pain or palpitations Respiratory/Chest Respiratory/Chest: Reports cough Gastrointestinal Gastrointestinal: Denies abdominal pain, nausea or vomiting Genitourinary Genitourinary ED: Denies dysuria or urinary frequency Musculoskeletal Musculoskeletal: Denies arthralgias or myalgias Integumentary Denies rash Neurologic Neurologic: Denies headache(s) or paresthesias Psychiatric Psychiatric: Denies anxiety or depression Endocrine Endocrinology: Denies polydipsia or polyuria Allergic/Immunologic Allergic/Immunologic ED: Denies urticaria EXAM Physical Exam Const Vital Signs: 12/28/20 10:57 Temperature 96.6 F L Temperature Source Temporal Pulse Rate 98 Respiratory Rate 16 Blood Pressure 110/76 Blood Pressure Mean 87 Pulse Ox 96 Oxygen Delivery Method Room Air Positive well nourished and well developed General Appearance ED: well developed HEENT Reports normocephalic, head/scalp atraumatic, TM's clear and moist mucous membranes HEENT Narrative: Patient has exudates on the right tonsillar pillar. There is no evidence of retropharyngeal or peritonsillar abscess. Negative for trauma Tympanic Membrane ED: Yes TM's clear Eyes PERRL and EOMs intact bilaterally Neck no lymphadenopathy and supple General: Negative for tenderness Chest Wall inspection of chest normal Resp normal respiratory effort and clear to auscultation bilaterally Cardio regular rate, regular rhythm and no murmurs GI normal to inspection, nondistended, normoactive bowel sounds Palpation: Negative for tender, guarding or rebound tenderness present Back/Spine no CVA tenderness Cervical Spine: Negative for cervical spine tenderness Thoracic Spine / Upper Back: Negative for thoracic spinal tenderness Extremity normal to inspection General Extremety ED: Negative for tenderness Neuro oriented x3 and CN's II-XII intact bilaterally Neuro Narrative: No focal deficits appreciated. Sensorium / Orientation: alert Psych mental status grossly normal Skin no rashes or lesions noted, no wounds and skin turgor normal MDM MDM MDM Narrative Medical decision making narrative: Patient presents with exudative pharyngitis. She has no wheezing or rhonchi. Her lungs are clear. She is nonfebrile. She has been treated supportively. Given the persistence of exudates, I am going to treat her with Augmentin. She is comfortable with this plan of care and will be discharged home. Impression 1. Exudative pharyngitis Discharge Plan Triage Chief Complaint: Sore Throat ED Provider: Damaso Morel Dx/Rx/DC Orders Instructions: ED Pharyngitis, Strep (Confirmed) Prescriptions: New amoxicillin-pot clavulanate [amoxicillin-pot clavulanate] 875 MG tablet 875 mg PO Q12H Qty: 20 RF: 0 No Action omeprazole 20 MG capsule 40 mg PO BID RF: 0 albuterol sulfate 1 INHALER inhaler 1 - 2 puff inhalation Q6H PRN PRN (Reason: Shortness Of Breath) RF: 0 prednisone 10 mg Tablet 10 mg PO DAILY RF: 0 benzonatate [Tessalon Perles] 100 mg capsule 200 mg PO TID RF: 0 nbdjtlnuowkljrb-qtqljvtzw-VI 2-30-10 mg/5 mL syrup 10 ml PO 4X/DAY PRN PRN (Reason: Cough) RF: 0 cholecalciferol (vitamin D3) 1,250 mcg (50,000 unit) capsule 1 mcg PO QWEEK RF: 0 Primary Care Provider: Ziggy Mckeon Referrals: Ziggy Mckeon MD [Primary Care Provider] -
[2020-12-28 11:55] VITALS: PULSE 74; RESP 16
--- NOTE | 2020-12-28 11:56 | ED.RN ---
THIS NURSE REVIEWED D/C INSTRUCTIONS WITH PT. PT VERBALIZED UNDERSTANDING OF INSTRUCTIONS. PT DENIES FURTHER NEEDS OR QUESTIONS AT THIS TIME. PT AMBULATES FROM ROOM ON OWN WITHOUT ASSISTANCE FROM STAFF
== END 2020-12-28 11:57 | disposition home or self-care (01) ==
PROVIDERS: Emergency Provider Emergency Medicine; PCP Family Medicine
DX: J02.9 Acute pharyngitis, unspecified (principal); M19.90 Unspecified osteoarthritis, unspecified site; F17.210 Nicotine dependence, cigarettes, uncomplicated
CPT/HCPCS: 99282

== ENCOUNTER 2021-03-25 00:07 | Emergency (ER) | payer MEDICAID, SELFPAY ==
[2021-03-25 00:08] VITALS: BP 119/77; PULSE 83; RESP 15; TEMP 36.8; O2SAT 97; BMI 27.9
--- NOTE | 2021-03-25 01:14 | EX.ED.VIS.HA ---
HPI History of Present Illness Chief Complaint: Headache Informant: patient Onset/Context/Timing Onset: Today and Hours Timing: Continuous Quality -Headache: Positive for Similar Prior Headaches Current Severity: Mild Maximum Severity: Moderate Associated Symptoms/Injury Associated Symptoms: Negative for Fever, Nausea, Vomiting, Sore Throat, Sinus Pressure, Numbness, Tingling, Preceding Aura, Visual Changes, Blurred Vision and Visual Loss Injury - TAVERAS: Negative for Direct Trauma, Fall and Assault Narrative Narrative: 46-year-old female history of migraine headaches and other headaches. Was diagnosed with Covid on March 18. She also has a history of reflux flux and partial thyroidectomy. Also has a history of cervical disc disease. She states that she awoke tonight with a headache around 1015. Took 2 extra strength Tylenol without relief. She has had no fever took her temperature at home it was 98 7. She denies any vomiting or diarrhea. No head trauma. She is on no blood thinners. There is no family history of intracranial bleeds or aneurysms. Nothing specifically makes her headache better or worse. She states that on her right side only behind her right eye. She has no photophobia. Prior similar symptoms: Yes Recent Illness/Hospitalization: No [facility] Medical History Anxiety Arthritis Back pain Bruises easily Chest pain Migraines Shoulder pain Home Medications omeprazole 40 mg PO BID 07/26/15 [History Last Taken 12/23/19 06:00] albuterol sulfate 1 - 2 puff INHALATION Q6H PRN PRN 12/16/19 [History Last Taken Unknown] amoxicillin-pot clavulanate 875 mg PO Q12H #20 tablet 12/28/20 [Rx Last Taken Unknown] benzonatate [Tessalon Perles] 200 mg PO TID 12/28/20 [History Last Taken Unknown] wttxsjhkiiomhia-ucgvlpgdc-HY 10 ml PO 4X/DAY PRN PRN 12/28/20 [History Last Taken Unknown] cholecalciferol (vitamin D3) 1 mcg PO QWEEK 12/28/20 [History Last Taken Unknown] prednisone 10 mg PO DAILY 12/28/20 [History Last Taken Unknown] Allergy/AdvReac Type Severity Reaction Status Date / Time hydromorphone HCl Allergy Anaphylaxis Verified 03/25/21 00:08 [From Dilaudid] morphine Allergy Anaphylaxis Verified 03/25/21 00:08 scopolamine Allergy PT UNSURE Verified 03/25/21 00:08 OF REACTION meloxicam AdvReac Nausea Verified 03/25/21 00:08 tramadol [From Ultram] AdvReac Other Verified 03/25/21 00:08 Family History Other CVA (cerebral vascular accident) Cancer Diabetes Hypertension Surgical History H/O tubal ligation H/O tubal ligation H/O: hysterectomy History of cholecystectomy History of cholecystectomy History of LAVH History of left oophorectomy History of removal of ovarian cyst History of right oophorectomy S/P ACL surgery S/P left knee surgery Social History Smoking Status: Current every day smoker tobacco type: cigarettes Tobacco: How many years used: 12 how long ago did patient quit smokin alcohol intake: never substance use type: does not use caffeine: Yes what type of physical activity do you participate in: walking seatbelt use: always do you feel safe at home: Yes additional social history: - Jv- unemployed 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 She is also having headaches. Review of Systems ROS Unobtainable: Denies due to encephalopathy Constitutional Constitutional ED: Denies chills or fever(s) Eyes Eyes: Denies blurry vision, change in vision or diplopia ENT ENT ED: Denies ear pain or sore throat Cardiovascular Cardiovascular: Denies chest pain or palpitations Respiratory/Chest Respiratory/Chest: Reports cough; Denies dyspnea Gastrointestinal Gastrointestinal: Denies abdominal pain, constipation, diarrhea, nausea or vomiting Genitourinary Genitourinary ED: Denies dysuria or hematuria Musculoskeletal Musculoskeletal: Denies arthralgias or myalgias Integumentary Denies abscess or rash Neurologic Neurologic: Reports headache(s) Psychiatric Psychiatric: Denies anxiety or depression Endocrine Endocrinology: Denies polydipsia or polyuria Hematologic/Lymphatic Hematologic/Lymphatic: Denies easy bruising Allergic/Immunologic Allergic/Immunologic ED: Denies urticaria EXAM Physical Exam Narrative Exam Narrative: Middle-aged female no acute distress vital signs stable afebrile. Initial blood pressure 119/77. HEENT exam normal. Pupils round react to light. No facial droop. No facial or head trauma. No sinus tenderness. Moist with memories. Neck nontender no meningismus no lymphadenopathy. Lungs clear to auscultation bilaterally. Heart regular rhythm no murmur. Abdomen soft nontender moving all 4 extremities. 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 Dorsi plantar flexion intact. Neurologic exam normal. NIH is 0. Fingertip to nose within normal limits. Normal speech. No facial droop. Back exam nontender skin unremarkable. Patient clinically looks well. Const Vital Signs: 03/25/21 00:08 Temperature 98.2 F Temperature Source Temporal Pulse Rate 83 Respiratory Rate 15 Blood Pressure 119/77 Blood Pressure Mean 91 Pulse Ox 97 Oxygen Delivery Method Room Air Positive well nourished and well developed; Negative for obese, cachectic, contractures or unkempt General Appearance ED: well developed and NAD; Negative for unkempt, cachectic, contractures, cyanotic or diaphoretic Nutritional Appearance: Negative for cachectic or obese HEENT Reports normocephalic and moist mucous membranes atraumatic; Negative for trauma or tenderness Eyes PERRL and EOMs intact bilaterally Neck no lymphadenopathy, supple, no meningeal signs and no JVD General: Negative for tenderness Resp normal respiratory effort and clear to auscultation bilaterally Auscultation: Negative for rales or rhonchi Cardio regular rate, regular rhythm, S1 normal heart sound, S2 normal heart sound and no murmurs GI non-tender and non-distended Auscultation: normoactive bowel sounds Palpation: soft; Negative for firm, tender, guarding or rigid Back/Spine no CVA tenderness General Back: Negative for CVA tenderness or tenderness Cervical Spine: Negative for cervical spine tenderness Thoracic Spine / Upper Back: Negative for thoracic spinal tenderness Extremity normal to inspection and full ROM General Extremety ED: Negative for edema or tenderness General Extremity: Negative for edema Neuro oriented x3, CN's II-XII intact bilaterally and no sensory deficits noted Sensorium / Orientation: awake, alert, oriented to person, oriented to place and oriented to time; Negative for orientation impaired, lethargic or stuporous Sensory Exam: No sensory level loss detected Motor Exam: strength 5/5 throughout Psych mental status grossly normal Appearance: Negative for unkempt Mood & Affect: Negative for depressed or tearful Skin Lesions: no lesions Rashes: no rashes MDM MDM MDM Narrative Medical decision making narrative: Middle-aged female with a history of headaches having a right-sided headache. Exam is completely normal. Neurologic exam is normal. She also recently was diagnosed with Covid about 7 days ago. She will be treated with IV fluids, Toradol, Benadryl and Compazine. Reassess. I do not feel she needs imaging. She will be reassessed. Repeat exam patient is doing well at 2:15 AM. Headache is resolved. Neurologic exam remains normal. Patient is asked to be discharged home. Discharge Plan Triage Chief Complaint: Headache ED Provider: Ramiro Hermosillo Dx/Rx/DC Orders Prescriptions: No Action omeprazole 20 MG capsule 40 mg PO BID RF: 0 albuterol sulfate 1 INHALER inhaler 1 - 2 puff inhalation Q6H PRN PRN (Reason: Shortness Of Breath) RF: 0 prednisone 10 mg Tablet 10 mg PO DAILY RF: 0 benzonatate [Tessalon Perles] 100 mg capsule 200 mg PO TID RF: 0 vqpfeaqiuyzyayr-ajuimwjxe-FC 2-30-10 mg/5 mL syrup 10 ml PO 4X/DAY PRN PRN (Reason: Cough) RF: 0 cholecalciferol (vitamin D3) 1,250 mcg (50,000 unit) capsule 1 mcg PO QWEEK RF: 0 amoxicillin-pot clavulanate [amoxicillin-pot clavulanate] 875 MG tablet 875 mg PO Q12H Qty: 20 RF: 0 Primary Care Provider: Ziggy Mckeon Referrals: Ziggy Mckeon MD [Primary Care Provider] -
[2021-03-25] MEDS: 0.9% Normal Saline 1,000 ML 1000 ML IV (01:39)
[2021-03-25] MEDS: DiphenhydrAMINE 50 MG/ML Syringe IV (01:40)
[2021-03-25] MEDS: Ketorolac 30 MG/ML Syringe IV (01:40)
[2021-03-25] MEDS: proCHLORPERazine 10 MG/2 ML Vial IV (01:40)
== END 2021-03-25 02:21 | disposition home or self-care (01) ==
PROVIDERS: Emergency Provider Emergency Medicine; PCP Family Medicine
DX: G43.909 Migraine, unspecified, not intractable, without status migrainosus (principal); M50.90 Cervical disc disorder, unspecified, unspecified cervical region; K21.9 Gastro-esophageal reflux disease without esophagitis; M19.90 Unspecified osteoarthritis, unspecified site; Z86.16 Personal history of COVID-19; F17.210 Nicotine dependence, cigarettes, uncomplicated
CPT/HCPCS: 99283; J7030; A4216

== ENCOUNTER → 2021-05-24 15:26 | Outpatient (CLI) | payer MEDICAID, SELFPAY ==
--- NOTE | 2021-05-24 15:29 | VDLE_ITS ---
Reason For Study: Pain in LLE RIGHT LEFT CFV is compressible, spontaneous, phasic, GSV is normal. competent and demonstrates normal CFV is compressible, spontaneous, phasic, augmentation. competent, and demonstrates normal Procedure augmentation. This is a venous duplex using B-mode, color FV is compressible, spontaneous, phasic, flow and spectral Doppler. competent and demonstrates normal Exam performed in department. augmentation. A preliminary report was called and/or faxed POP V is compressible, spontaneous, phasic, to [place]. competent and demonstrates normal augmentation. T/P Trunk is compressible. PTV is compressible. LT PerV is compressible. VL/Venous Duplex US, Unilateral Interpretation Summary Deep veins of the left lower extremity are patent and compressible segmentally. There is no evidence of left lower extremity deep vein thrombosis. Valvular competence appears intac t within the proximal deep venous system on the left . The left great saphenous vein appears patent a nd compressible segmentally. Ordering Physician: Ziggy Mckeon Referring Physician: Ziggy Mckeon Performed By: Jayde Dalal RVT
== END ==
PROVIDERS: PCP Family Medicine; Referring Provider Family Medicine; Visit Provider Family Medicine
DX: M25.562 Pain in left knee (principal); G89.29 Other chronic pain; M79.605 Pain in left leg
CPT/HCPCS: 93971

== ENCOUNTER 2021-08-21 09:54 | Emergency (ER) | payer MEDICAID, SELFPAY ==
[2021-08-21 09:55] VITALS: BP 139/79; PULSE 77; RESP 15; TEMP 36.2; O2SAT 100; BMI 27.3
--- NOTE | 2021-08-21 10:05 | RAD_ITS ---
STUDY: X-RAY - LEFT KNEE REASON FOR EXAM: Female, 46 years old. injury TECHNIQUE: 4 view(s) of the knee. COMPARISON: 11/23/2019 FINDINGS: Normal visualized distal femur. Normal visualized proximal tibia and fibula. Normal proximal tibiofibular articulation. Status post anterior cruciate ligament reconstruction. There is moderate degenerative arthrosis of the medial femorotibial compartment with moderate joint space narrowing. There is mild degenerative arthrosis of the lateral femorotibial compartment. Normal patellofemoral articulation. The soft tissue structures are unremarkable. RAD/Knee 4 or More Views IMPRESSION: No acute fracture or dislocation. Electronically Signed: Manpreet Pacheco MD at 10:48 EST ,
--- NOTE | 2021-08-21 10:05 | EX.ED.UPPERE ---
HPI History of Present Illness Chief Complaint: Upper Extremity Injury Detail of Chief Complaint: Neck and left arm pain, left knee pain Informant: patient Onset/Context/Timing Onset: Days Current Severity: Mild Maximum Severity: Moderate Narrative Narrative: Patient presents after slip on the ice 2 days ago. She states she twisted her left knee and since that time has had a pressure or swelling sensation in her left knee. She has had 3 prior knee surgeries. She also complains of pain in the left side of her neck and down her left arm. She will occasionally get paresthesias. She denies striking her head when she fell. [facility] Medical History Anxiety Arthritis Back pain Bruises easily Chest pain Migraines Shoulder pain Home Medications omeprazole 40 mg PO BID 07/26/15 [History Last Taken 12/23/19 06:00] albuterol sulfate 1 - 2 puff INHALATION Q6H PRN PRN 12/16/19 [History Last Taken Unknown] amoxicillin-pot clavulanate 875 mg PO Q12H #20 tablet 12/28/20 [Rx Last Taken Unknown] benzonatate [Tessalon Perles] 200 mg PO TID 12/28/20 [History Last Taken Unknown] mbcxjddgcybjode-yabsfmurf-WO 10 ml PO 4X/DAY PRN PRN 12/28/20 [History Last Taken Unknown] cholecalciferol (vitamin D3) 1 mcg PO QWEEK 12/28/20 [History Last Taken Unknown] prednisone 10 mg PO DAILY 12/28/20 [History Last Taken Unknown] cyclobenzaprine 10 mg PO BID PRN #10 tab 08/21/21 [Rx Last Taken Unknown] hydrocodone-acetaminophen 1 tab PO Q6H PRN 3 Days #10 tab 08/21/21 [Rx Last Taken Unknown] Allergy/AdvReac Type Severity Reaction Status Date / Time hydromorphone HCl Allergy Anaphylaxis Verified 03/25/21 00:08 [From Dilaudid] morphine Allergy Anaphylaxis Verified 03/25/21 00:08 scopolamine Allergy PT UNSURE Verified 03/25/21 00:08 OF REACTION meloxicam AdvReac Nausea Verified 03/25/21 00:08 tramadol [From Ultram] AdvReac Other Verified 03/25/21 00:08 Family History Other CVA (cerebral vascular accident) Cancer Diabetes Hypertension Surgical History H/O tubal ligation H/O tubal ligation H/O: hysterectomy History of cholecystectomy History of cholecystectomy History of LAVH History of left oophorectomy History of removal of ovarian cyst History of right oophorectomy S/P ACL surgery S/P left knee surgery Social History Smoking Status: Current every day smoker tobacco type: cigarettes Tobacco: How many years used: 12 how long ago did patient quit smokin alcohol intake: never substance use type: does not use caffeine: Yes what type of physical activity do you participate in: walking seatbelt use: always do you feel safe at home: Yes additional social history: - Jv- unemployed 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 ED Constitutional Constitutional ED: Denies chills or fever(s) Eyes Eyes: Denies change in vision ENT ENT ED: Denies sore throat Cardiovascular Cardiovascular: Denies chest pain Respiratory/Chest Respiratory/Chest: Denies cough or dyspnea Gastrointestinal Gastrointestinal: Denies abdominal pain, diarrhea, nausea or vomiting Genitourinary Genitourinary ED: Denies dysuria Musculoskeletal Musculoskeletal: Reports neck pain and other Details: Left arm and left knee pain ; Denies back pain Integumentary Denies rash Neurologic Neurologic: Reports paresthesias; Denies headache(s) or weakness Allergic/Immunologic Allergic/Immunologic ED: Denies urticaria EXAM Physical Exam Const Vital Signs: 08/21/21 09:55 Temperature 97.1 F L Temperature Source Temporal Pulse Rate 77 Respiratory Rate 15 Blood Pressure 139/79 H Blood Pressure Mean 99 Pulse Ox 100 Oxygen Delivery Method Room Air Positive well nourished and well developed General Appearance ED: well developed HEENT normocephalic and atraumatic Eyes PERRL and EOMs intact bilaterally Neck supple Neck Narrative: Mild tenderness in the low cervical paraspinal muscles. Chest Wall inspection of chest normal and palpation of chest normal Resp normal respiratory effort and clear to auscultation bilaterally Cardio regular rate and regular rhythm GI non-tender Palpation: soft Back/Spine Thoracic Spine / Upper Back: Negative for thoracic spinal tenderness Lumbar Spine / Lower Back: Negative for lumbar spinal tenderness Extremity normal to inspection Extremity Narrative: Mild tenderness along the joint line of the left knee. No significant edema noted. Full range of motion. Strong distal pulses. No focal tenderness along palpation of the left upper extremity with strong distal pulses and normal cap refill. Neuro oriented x3, moves all extremities, no focal motor deficits and no sensory deficits noted Sensorium / Orientation: alert Psych mental status grossly normal Skin Lesions: no lesions Rashes: no rashes MDM MDM MDM Narrative Medical decision making narrative: X-rays of the C-spine and left knee obtained. Radiography Diagnostic Testing: Radiology Impression Knee X-Ray 08/21/21 10:05 IMPRESSION: No acute fracture or dislocation. 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 2. Focal degenerative disc disease at C6-C7. MRI would be useful for Electronically Signed: Manpreet Pacheco MD at 10:52 EST Reading Location ID and State: [id number] / [employer] Tel , Service support , Treatment and Re-Evaluation Comments:: X-rays per my interpretation reveal no acute findings. Radiologist rotation is reviewed. C-spine x-rays reviewed with the patient. She states that she was told about this deformity in her neck at age 16. She has been having increased problems with her neck and will be referred to Dr. Le for follow-up. No acute findings noted in the left knee. She has had 3 prior surgeries, most recently with Dr. Mcgee. She will follow up with Dr. Mcgee. Patient will be given [place] and Flexeril for pain. She will continue ibuprofen at home as well. Discharge Plan Triage Chief Complaint: Upper Extremity Injury ED Provider: Jyoti Haddad Dx/Rx/DC Orders Clinical Impression: Cervical radiculopathy, Left knee sprain Instructions: ED Knee Sprain, ED Radiculopathy, Cervical Prescriptions: New hydrocodone-acetaminophen 5-325 mg tablet 1 tab PO Q6H PRN (Reason: pain) 3 Days Qty: 10 RF: 0 cyclobenzaprine 10 mg tablet 10 mg PO BID PRN (Reason: muscle spasm) Qty: 10 RF: 0 No Action omeprazole 20 MG capsule 40 mg PO BID RF: 0 albuterol sulfate 1 INHALER inhaler 1 - 2 puff inhalation Q6H PRN PRN (Reason: Shortness Of Breath) RF: 0 prednisone 10 mg Tablet 10 mg PO DAILY RF: 0 benzonatate [Tessalon Perles] 100 mg capsule 200 mg PO TID RF: 0 wxwqzdfxgmnjfsf-iexgcomvl-YQ 2-30-10 mg/5 mL syrup 10 ml PO 4X/DAY PRN PRN (Reason: Cough) RF: 0 cholecalciferol (vitamin D3) 1,250 mcg (50,000 unit) capsule 1 mcg PO QWEEK RF: 0 amoxicillin-pot clavulanate [amoxicillin-pot clavulanate] 875 MG tablet 875 mg PO Q12H Qty: 20 RF: 0 Primary Care Provider: Arianna Singh NP Referrals: Kirk Le DO [STAFF PHYSICIAN] - As Needed Reagan Mcgee MD [STAFF PHYSICIAN] - 10-14 Days if not better Arianna Singh NP, DIE EQUIPMENT OPERATOR-C [Primary Care Provider] - Disposition Disposition: Home, Self Care
--- NOTE | 2021-08-21 10:14 | RAD_ITS ---
STUDY: X-RAY - CERVICAL SPINE REASON FOR EXAM: Female, 46 years old. pain TECHNIQUE: 3 view(s) of the cervical spine were obtained. COMPARISON: None FINDINGS: Normal anterior atlantoaxial articulation. Normal odontoid process. Normal cervical lordosis. 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 Focal disc space narrowing and osteophyte formation at C6-C7 consistent with degenerative disc disease. Normal visualized intervertebral neuroforamina. The soft tissue structures are unremarkable. RAD/Cerv Spine 2 or 3 Views IMPRESSION: 1. 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 2. Focal degenerative disc disease at C6-C7. MRI would be useful for Electronically Signed: Manpreet Pacheco MD at 10:52 EST ,
== END 2021-08-21 12:14 | disposition home or self-care (01) ==
PROVIDERS: Emergency Provider Emergency Medicine; PCP Nurse Practitioner Family; Visit Provider Emergency Medicine
DX: M50.123 Cervical disc disorder at C6-C7 level with radiculopathy (principal); F17.210 Nicotine dependence, cigarettes, uncomplicated; W00.0XXA Fall on same level due to ice and snow, initial encounter; Y93.9 Activity, unspecified; Y92.9 Unspecified place or not applicable; F41.9 Anxiety disorder, unspecified; M19.90 Unspecified osteoarthritis, unspecified site; G43.909 Migraine, unspecified, not intractable, without status migrainosus; Z79.899 Other long term (current) drug therapy; S83.92XA Sprain of unspecified site of left knee, initial encounter
CPT/HCPCS: 72040; 73564; 99282

== ENCOUNTER 2022-09-27 09:30 | Outpatient (RCR) | payer MEDICAID, SELFPAY ==
--- NOTE | 2022-07-07 12:25 | HP.PTEVAL ---
Patient's Visit Information JANES WINCHESTER is a 47 year old F referred to Physical Therapy by KARINA PETTY with a diagnosis of UNILTAERAL POST-TRAUMATIC OSTEOARTHRITIS ,LEFT KNEE. Date of Evaluation: 07/07/22 Physical Therapist: Jules Rapp, PT, Cert MDT, OCS - Visit Plan Frequency: 2-3x /Week Duration: 4-6 Weeks Plan: FOCUS INTIALLY ON ROM/EDEMA. PT INTERVENTIONS ROM/FLEXABLITY LEFT KNEE,GAIT/BALANCE TRAINING ,.STRENGTHENING QUADS/HAMS/HIP , AND FUNCTIONAL STRENGTHENING CP/VASO A - Subjective This 47 y/o female presents to physical therapy with left TKR done by DR Chun done on 07/05/22 at [facility] . Patient has had pain 2000 with prior surgery with ACL and meniscectomy .Patient d/c DOS with fww. Patient PECO negative pressure dressing. Patient RTD Jul.Patient has swelling and has christina wrap. Patient denies paresthesia/tingling . Patient has pain and has limitations with all functional activities walking. Patient needs assist with dressing .Patient has tub /shower with seat . Patient has 1story home with rails . Patient goals to no pain and return to prior level function. MEDS : Percocet, naproxen ,ant-antibiotic. SOCAIL: . VOCATION: reired - Pain Left Knee Pain Intensity (Out of 10): 8 Pain Intensity Range: 10 - Objective POSTURE: mild forward posture. NEURO: denies paresthesia/tingling. GIRTH PATELLA: 52.6 cm. GIRTH 6 SUPRAPATELLA: 56.2. INSCION: well approximate dressing intact christina wrap. GAIT: ambulates with fww WBAT LLE with decrease stance time knee flexion slow sumi. BALANCE: fair with fww. AAROM: 0-55 supine knee flexion. MMT:( peak force) quads/hams 0. STAIRS: one step at time - Balance/Special Test Scores Lower Extremity Functional Score: 4 TUG Test Time Seconds: 42 WOMAC Total Score: 95 WOMAC Percentatge: 1.0500 - Goals Goal 1:: Patient to be I with HEP Goal Time Frame: 6-8 Weeks Goal 2:: Patient to ambulate with LRD community distance with normal gait pattern Goal Time Frame: 6-8 Weeks Goal 3:: Patient to improve AROM knee 0-100 degrees to improve stairs Goal Time Frame: 6-8 Weeks Goal 4:: Patient to improve peak force of quads/hams by 20 to improve gait and function Goal Time Frame: 6-8 Weeks Goal 5:: Patient to improve TUG by < 10 second to improve function Goal Time Frame: 6-8 Weeks Goal 6:: Patient to improve LFES and WOMAC by 10 points to improve and QOL Goal Time Frame: 6-8 Weeks - Rehabilitation Potential Physical Therapy Diagnosis: This patient had Left TKR with pain, edema, decrease ROM , and strength impairs walking and standing affecting housework tasks and ADLS thus benefit from skilled PT Rehabilitation Potential: Good - Anticipated Interventions Patient/Client Instruction: Educate patient on: Condition, Plan of Care For the Purpose of:: To decrease pain, To increase ROM, To improve muscle performance and motor function, To improve ability to perform ADL's, To increase tolerance to activity/condition/position, To improve ability of physical actions for home/community/work/leisure, To improve health of tissue, To decrease soft tissue restriction, To increase flexibility/ROM, To improve tolerance to ADL's Therapeutic Exercise to Include: Strength training, Endurance training, Balance training, Postural training, Flexibilty training, Passive ROM, Active ROM For the Purpose of:: To decrease pain, To increase ROM, To improve muscle performance and motor function, To increase tolerance to activity/condition/position, To improve performance and independence with ADL's, To improve ability of physical actions for home/community/work/leisure, To improve health of tissue, To decrease soft tissue restriction, To increase flexibility/ROM, To improve tolerance to ADL's Cryotherapy (ice pack, ice massage): Yes Thermo therapy (hot pack): Yes Vasopneumatic device: Yes For the Purpose of:: To decrease pain, To decrease swelling/inflammation, To increase ROM, To improve nutrient delivery to tissue, To increase oxygenation perfusion, To improve health of tissue, To decrease soft tissue restriction Thank you for the opportunity to evaluate your patient. For Medicare and Medicare HMO plans, please review the plan of care and approve it. It will need to be FAXED BACK to us at [phone] for Medicare purposes. For Medicare only, by signing this I certify the plan of care. Please let me know if there are questions or concerns regarding this plan of care. Physician Signature: Date:
== END 2022-09-27 19:00 | disposition home or self-care (01) ==
LOC: PT 09:30
PROVIDERS: PCP Nurse Practitioner Family
DX: M17.32 Unilateral post-traumatic osteoarthritis, left knee (principal)
CPT/HCPCS: 97110; 97162

== ENCOUNTER 2022-10-21 10:10 | Emergency (ER) | payer MEDICAID, SELFPAY ==
[2022-10-21 10:11] VITALS: BP 116/71; PULSE 83; RESP 16; TEMP 36.2; O2SAT 100; BMI 26.5
--- NOTE | 2022-10-21 10:25 | RAD_ITS ---
STUDY: X-RAY - LEFT KNEE REASON FOR EXAM: Female, 47 years old. Injury/Pain TECHNIQUE: 4 view(s) of the knee. COMPARISON: 08/21/2021 left knee x-ray FINDINGS: Since the prior study there has been a placement of a 3 part left knee arthroplasty. There is minimal calcification on the lateral side of the patellofemoral compartment. There is no visualized surrounding fracture or significant facial soft tissue edema. There are atherosclerotic calcifications. RAD/Knee 4 or More Views IMPRESSION: Status post left knee arthroplasty without visualized fracture. Electronically Signed: Mara Holt MD at 11:07 EDT ,
--- NOTE | 2022-10-21 12:11 | EDS_ITS ---
HPI History of Present Illness HPI Narrative: Patient presents with injury to her left knee that occurred yesterday evening. Patient states that she has large totes that sit behind her television. Patient states these fell and landed on her left knee. Patient describes her pain as sharp. Patient states her pain is worse with any movement or weightbearing. Patient states she has a history of left total knee replacement with multiple revisions. Patient states she had surgery for this on 07/05/2022. Patient states she has been through therapy after this. Chief Complaint: Lower Extremity Injury Informant: patient Occured/Mechanism Mechanism/Context: Yes direct blow Onset/Context/Timing Onset: Yesterday Context: Sudden Onset Timing: Continuous Quality of Pain: Sharp Location: Left knee Worsened by: Weightbearing, movement Relieved by: Nothing PFSH PFSH Medical History Anxiety Arthritis Back pain Bruises easily Chest pain Migraines Shoulder pain Home Medications omeprazole 20 mg capsule,delayed release 40 mg PO BID 07/26/15 [History Last Taken 12/23/19 06:00] albuterol sulfate 90 mcg/actuation aerosol inhaler 1 - 2 puff inhalation Q6H PRN PRN Shortness Of Breath 12/16/19 [History Last Taken Unknown] amoxicillin 875 mg-potassium clavulanate 125 mg tablet 875 mg PO Q12H #20 TABLETS 12/28/20 [Rx Last Taken Unknown] benzonatate 100 mg capsule (Tespoli Baker) 200 mg PO TID 12/28/20 [History Last Taken Unknown] xymzpnvtkzlnvqp-kvbxyefdbtosfmg-VO 2 mg-30 mg-10 mg/5 mL oral syrup 10 ml PO 4X/DAY PRN PRN Cough 12/28/20 [History Last Taken Unknown] cholecalciferol (vitamin D3) 1,250 mcg (50,000 unit) capsule 1 mcg PO QWEEK 12/28/20 [History Last Taken Unknown] prednisone 10 mg tablet 10 mg PO DAILY 12/28/20 [History Last Taken Unknown] cyclobenzaprine 10 mg tablet 10 mg PO BID PRN muscle spasm #10 tabs 08/21/21 [Rx Last Taken Unknown] hydrocodone-acetaminophen 5-325mg 5mg-325mg 1 tab PO Q6H PRN pain 3 days #10 tabs 08/21/21 [Rx Last Taken Unknown] Allergy/AdvReac Type Severity Reaction Status Date / Time hydromorphone HCl Allergy Anaphylaxis Verified 10/21/22 10:12 [From Dilaudid] morphine Allergy Anaphylaxis Verified 10/21/22 10:12 scopolamine Allergy PT UNSURE Verified 10/21/22 10:12 OF REACTION meloxicam AdvReac Nausea Verified 10/21/22 10:12 tramadol [From Ultram] AdvReac Other Verified 10/21/22 10:12 Family History Other CVA (cerebral vascular accident) Cancer Diabetes Hypertension Surgical History H/O tubal ligation H/O tubal ligation H/O: hysterectomy History of cholecystectomy History of cholecystectomy History of LAVH History of left oophorectomy History of removal of ovarian cyst History of right oophorectomy S/P ACL surgery S/P left knee surgery Social History Smoking Status: Current every day smoker tobacco type: cigarettes Tobacco: How many years used: 12 how long ago did patient quit smokin alcohol intake: never substance use type: does not use caffeine: Yes what type of physical activity do you participate in: walking seatbelt use: always do you feel safe at home: Yes additional social history: - Jv- unemployed 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 ROS ED Constitutional Constitutional ED: Denies chills or fever(s) Eyes Eyes: Denies blurry vision or change in vision ENT ENT ED: Denies rhinorrhea or sore throat Cardiovascular Cardiovascular: Denies chest pain or palpitations Respiratory/Chest Respiratory/Chest: Denies cough or dyspnea Gastrointestinal Gastrointestinal: Denies nausea or vomiting Genitourinary Genitourinary ED: Denies dysuria or hematuria Musculoskeletal Musculoskeletal: Denies back pain or neck pain Integumentary Denies abscess or rash Neurologic Neurologic: Denies headache(s) or weakness Allergic/Immunologic Allergic/Immunologic ED: Denies mouth swelling or urticaria EXAM Physical Exam Const Vital Signs: 10/21/22 10:11 Temperature 97.1 F L Temperature Source Temporal Pulse Rate 83 Respiratory Rate 16 Blood Pressure 116/71 Blood Pressure Mean 86 Pulse Ox 100 Oxygen Delivery Method Room Air Positive well nourished and well developed General Appearance ED: well developed and NAD HEENT Reports moist mucous membranes Neck full ROM Extremity Extremity Narrative: There is tenderness and mild edema over the medial aspect of the left knee. There is no obvious deformity noted. Range of motion was limited in all motions of the left knee secondary to pain. There is no erythema or warmth. There is no calf tenderness. Pedal pulses are equal bilateral. Sensation was intact to light touch bilaterally in the lower extremities. Strength is 5/5 bilaterally in the lower extremities. Neuro oriented x3, CN's II-XII intact bilaterally, moves all extremities and no sensory deficits noted Sensorium / Orientation: alert Motor Exam: strength 5/5 throughout Psych mental status grossly normal MDM MDM MDM Narrative Medical decision making narrative: Differential diagnosis includes periprosthetic fracture and contusion. X-rays of the left knee will be obtained to assess for fracture. Radiography Diagnostic Testing: Clinical Impression(s) from Imaging Studies Knee X-Ray 10/21/22 10:25 IMPRESSION: Status post left knee arthroplasty without visualized fracture. Electronically Signed: Mara Holt MD at 11:07 EDT Reading Location ID and State: Formerly [facility], 1928–1983 / MD Tel , Service support , X-rays of the left knee were obtained. There are 4 views. On my independent interpretation, there is no acute fracture noted. The prosthesis is in place. Radiologist also interpreted the x-rays and agrees. Treatment and Re-Evaluation Narrative: Patient was advised of her findings. Patient was instructed to ice and elevate the left knee. Patient was instructed to follow-up with her surgeon in 5 to 7 days. Patient understood and was agreeable with the plan. All questions were answered. Discharge Plan Triage Chief Complaint: Lower Extremity Injury ED Provider: Jam Stiles Dx/Rx/DC Orders Clinical Impression: Contusion of left knee Instructions: ED Contusion, Lower Extremity Prescriptions: No Action omeprazole 20 MG capsule 40 mg PO BID albuterol sulfate 1 INHALER inhaler 1 - 2 puff inhalation Q6H PRN PRN (Reason: Shortness Of Breath) prednisone 10 mg Tablet 10 mg PO DAILY benzonatate [Tessalon Perles] 100 mg capsule 200 mg PO TID Label Comments: take 2 capsules by mouth three times a day if needed mxqzercjvtuzmtq-gfbunngyx-LE 2-30-10 mg/5 mL syrup 10 ml PO 4X/DAY PRN PRN (Reason: Cough) Label Comments: take 10 milliliters ( 2 TEASPOONFUL ) by mouth four times a day if needed cholecalciferol (vitamin D3) 1,250 mcg (50,000 unit) capsule 1 mcg PO QWEEK Label Comments: take 1 capsule by mouth every week amoxicillin-pot clavulanate [amoxicillin-pot clavulanate] 875 MG tablet 875 mg PO Q12H Qty: 20 0RF hydrocodone-acetaminophen 5-325 mg tablet 1 tab PO Q6H PRN (Reason: pain) 3 Days Qty: 10 0RF cyclobenzaprine 10 mg tablet 10 mg PO BID PRN (Reason: muscle spasm) Qty: 10 0RF Primary Care Provider: NIKOLAY PAZ Referrals: NIKOLAY PAZ CRNP [Primary Care Provider] - 5-7 Days Disposition Disposition: Home, Self Care
--- NOTE | 2022-10-21 12:44 | ED.RN ---
PT VERY ANGRY UPON DC. STATES I'M NOT GETTING ANYTHING FOR PAIN?. THIS RN WENT OVER DC INSTRUCTIONS REGARDING MOTRIN OR TYLENOL USE. PT STATES I CAN'T WALK. PT STROMS OUT
== END 2022-10-21 12:49 | disposition home or self-care (01) ==
PROVIDERS: Emergency Provider Emergency Medicine; PCP Nurse Practitioner Adult Health; Visit Provider Emergency Medicine
DX: S80.02XA Contusion of left knee, initial encounter (principal); F17.210 Nicotine dependence, cigarettes, uncomplicated; W20.8XXA Other cause of strike by thrown, projected or falling object, initial encounter; Z90.49 Acquired absence of other specified parts of digestive tract; Z90.710 Acquired absence of both cervix and uterus; Z90.722 Acquired absence of ovaries, bilateral; Z96.652 Presence of left artificial knee joint
CPT/HCPCS: 73564; 99282

== ENCOUNTER 2023-01-30 15:30 | Outpatient (RCR) | payer MEDICAID, SELFPAY ==
--- NOTE | 2022-12-19 10:03 | HP.PTEVAL ---
Patient's Visit Information JANES WINCHESTER is a 47 year old F referred to Physical Therapy by MAUREEN CARTWRIGHT with a diagnosis of LEFT KNEE PAIN AND BUCKLING. Date of Evaluation: 12/19/22 Physical Therapist: Jules Rapp, PT, Cert MDT, OCS - Visit Plan Frequency: 2x /Week Duration: 6 Weeks Plan: PT INTERENTIONS MODALTIES FOR PAIN ,ROM/FLEXABLITY KNEE ,STRENGTHENING QUADS/HAMS/HIP ,FUNCTIONAL STRENGTHENING AND BIKE/NUSTEP - Subjective This 47 y/o female presents to physical therapy with left knee pain. Patient had Left TKR done by DR Chun done on 07/05/22 at [facility] . Most recently patient fell going to work slipped in mud with immediate pain November 08. Patient went to ER at [place] had x-rays hip/knee -.Had shot of Toradol. Patient d//c to home with crutches. Patient went to surgeon next week x-rays reviewed. Patient had more pain didn't have MRI. Dr Said did not have ACL. Patient seen Family DR recommended PT . Patient pain located patella and medial knee. Patient takes teylonal. Has Volteron gel . Patient has difficulty with stairs one step ,unable to squat with pain . Patient has pain standing on feet all day. Patient has edema . Patient has ache especially at night . Patient goals to have no pain. Patient pain affects QOL and function/work demands. SOCIAL: . VCATION: [employer] WR[employer]ER - Pain Left Knee Pain Intensity (Out of 10): 6 Pain Intensity Range: 10 - Objective POSTURE: mild forward posture. GAIT: ambulates with antalgic gait left side. NEURO: intact. PALAPTION: tender superior /inferior patella ,media/lateral knee. EDEMA: absent. AROM: supine knee flexion 5-105 degrees. MMT: ( peak force) quads 21.7 ,hamstrings 10.2 ,hip flexion 18.9. STAIRS : one step at time - Special Tests L Knee Posterior Drawer - PCL: Negative L Knee Posterior Sag - PCL: Negative L Knee Valgus - MCL: Negative L Knee Varus - LCL: Negative L Knee Patellar Grind - PFS: Negative - Balance/Special Test Scores Lower Extremity Functional Score: 18 - Goals Goal 1:: Patient to be I with HEP for knee Goal Time Frame: 4-6 Weeks Goal 2:: Patient to normalize gait pattern Goal Time Frame: 4-6 Weeks Goal 3:: Patient to demonstrate 50% improvement with decrease pain and improved function Goal Time Frame: 4-6 Weeks Goal 4:: Patient increase AROM knee supine flexion 0-115 degrees to improve stairs Goal Time Frame: 4-6 Weeks Goal 5:: Patient to improve peak force quads/hams by 5-10 to improve function and QOL Goal Time Frame: 4-6 Weeks Goal 6:: Patient to improve LFES score by 5-10 points to improve QOL and function Goal Time Frame: 4-6 Weeks - Rehabilitation Potential Physical Therapy Diagnosis: This patient slipped and fell caused left knee pain with edema with h/o left TKR with current impairments with decrease ROM/strength /gait thus benefit from skilled PT Rehabilitation Potential: Good - Anticipated Interventions Patient/Client Instruction: Educate patient on: Condition, Plan of Care For the Purpose of:: To decrease pain, To decrease swelling/inflammation, To increase ROM, To improve muscle performance and motor function, To improve ability to perform ADL's, To increase tolerance to activity/condition/position, To improve ability of physical actions for home/community/work/leisure, To improve health of tissue, To decrease soft tissue restriction, To increase flexibility/ROM Therapeutic Exercise to Include: Strength training, Flexibilty training, Passive ROM, Active ROM For the Purpose of:: To decrease pain, To increase ROM, To improve nutrient delivery to tissue, To increase oxygenation perfusion, To improve muscle performance and motor function, To improve ability to perform ADL's, To improve performance and independence with ADL's, To improve ability of physical actions for home/community/work/leisure, To improve health of tissue, To decrease soft tissue restriction, To increase flexibility/ROM, To reduce risk of recurrence TENS: Yes IF ES: Yes Cryotherapy (ice pack, ice massage): Yes Thermo therapy (hot pack): Yes Ultrasound (thermal/non thermal): Yes For the Purpose of:: To decrease pain, To decrease swelling/inflammation, To increase ROM, To improve health of tissue, To decrease soft tissue restriction Thank you for the opportunity to evaluate your patient. For Medicare and Medicare HMO plans, please review the plan of care and approve it. It will need to be FAXED BACK to us at [phone] for Medicare purposes. For Medicare only, by signing this I certify the plan of care. Please let me know if there are questions or concerns regarding this plan of care. Physician Signature: Date:
== END 2023-01-30 19:00 | disposition home or self-care (01) ==
LOC: PT 15:30
PROVIDERS: PCP Nurse Practitioner Adult Health; Referring Provider Nurse Practitioner Adult Health; Visit Provider Nurse Practitioner Adult Health
DX: Z09 Encounter for follow-up examination after completed treatment for conditions other than malignant neoplasm (principal); M25.369 Other instability, unspecified knee; M25.562 Pain in left knee; Z91.81 History of falling
CPT/HCPCS: 97110; 97162

== ENCOUNTER 2023-10-12 10:06 | Emergency (ER) | payer MEDICAID, SELFPAY ==
[2023-10-12 10:07] VITALS: BP 128/79; PULSE 78; RESP 16; TEMP 36.4; O2SAT 99; BMI 27.8
[2023-10-12 10:12] VITALS: O2SAT 98
[2023-10-12] MEDS: Ibuprofen 600 MG Tablet PO (10:22)
--- NOTE | 2023-10-12 10:23 | EDS_ITS ---
HPI History of Present Illness Chief Complaint: Shortness of Breath Informant: patient Narrative Narrative: Patient presents with cough, congestion, body aches that started yesterday at work. 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 Patient states this morning she continues to have body aches with congestion. She did take some upww-smg-rilqfwb cold medicine this morning. [facility] Medical History Anxiety Arthritis Back pain Bruises easily Chest pain Migraines Shoulder pain Home Medications omeprazole 20 mg capsule,delayed release 40 mg PO BID 07/26/15 [History Last Taken 12/23/19 06:00] albuterol sulfate 90 mcg/actuation aerosol inhaler 1 - 2 puff inhalation Q6H PRN PRN Shortness Of Breath 12/16/19 [History Last Taken Unknown] amoxicillin 875 mg-potassium clavulanate 125 mg tablet 875 mg (0.875 x 875-125 mg) PO Q12H #20 TABLETS 12/28/20 [Rx Last Taken Unknown] benzonatate 100 mg capsule (Snipisaljake Baker) 200 mg PO TID 12/28/20 [History Last Taken Unknown] ntrzcxfgejsmhoo-fbbsuattkquyazt-AB 2 mg-30 mg-10 mg/5 mL oral syrup 10 ml PO 4X/DAY PRN PRN Cough 12/28/20 [History Last Taken Unknown] cholecalciferol (vitamin D3) 1,250 mcg (50,000 unit) capsule 1 mcg PO QWEEK 12/28/20 [History Last Taken Unknown] prednisone 10 mg tablet 10 mg PO DAILY 12/28/20 [History Last Taken Unknown] cyclobenzaprine 10 mg tablet 10 mg PO BID PRN muscle spasm #10 tabs 08/21/21 [Rx Last Taken Unknown] hydrocodone-acetaminophen 5-325mg 5mg-325mg 1 tab PO Q6H PRN pain 3 days #10 tabs 08/21/21 [Rx Last Taken Unknown] Allergy/AdvReac Type Severity Reaction Status Date / Time hydromorphone HCl Allergy Anaphylaxis Verified 10/12/23 10:09 [From Dilaudid] morphine Allergy Anaphylaxis Verified 10/12/23 10:09 scopolamine Allergy PT UNSURE Verified 10/12/23 10:09 OF REACTION meloxicam AdvReac Nausea Verified 10/12/23 10:09 tramadol [From Ultram] AdvReac Other Verified 10/12/23 10:09 Family History Other CVA (cerebral vascular accident) Cancer Diabetes Hypertension Surgical History H/O tubal ligation H/O tubal ligation H/O: hysterectomy History of cholecystectomy History of cholecystectomy History of LAVH History of left oophorectomy History of removal of ovarian cyst History of right oophorectomy S/P ACL surgery S/P left knee surgery Social History Smoking Status: Current every day smoker tobacco type: cigarettes Tobacco: How many years used: 12 how long ago did patient quit smokin alcohol intake: never substance use type: does not use caffeine: Yes what type of physical activity do you participate in: walking seatbelt use: always do you feel safe at home: Yes additional social history: - Jv- unemployed 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 ED Constitutional Constitutional ED: Denies chills or fever(s) Eyes Eyes: Denies discharge from eye(s) ENT ENT ED: Denies discharge from eye(s), rhinorrhea or sore throat Cardiovascular Cardiovascular: Denies chest pain Respiratory/Chest Respiratory/Chest: Reports cough and dyspnea Gastrointestinal Gastrointestinal: Reports diarrhea; Denies abdominal pain, nausea or vomiting Genitourinary Genitourinary ED: Denies dysuria Musculoskeletal Musculoskeletal: Reports myalgias; Denies back pain or extremity pain Integumentary Denies Abrasions or rash Neurologic Neurologic: Reports weakness; Denies headache(s) Allergic/Immunologic Allergic/Immunologic ED: Denies lip swelling or urticaria EXAM Physical Exam Const Vital Signs: 10/12/23 10:07 10/12/23 10:12 Temperature 97.5 F L Temperature Source Temporal Pulse Rate 78 Respiratory Rate 16 Respiratory Effort Normal Blood Pressure 128/79 H Blood Pressure Mean 95 Pulse Ox 99 Oxygen Delivery Method Room Air Room Air Positive well nourished HEENT Reports moist mucous membranes Eyes EOMs intact bilaterally Chest Wall inspection of chest normal and palpation of chest normal Resp normal respiratory effort and clear to auscultation bilaterally Cardio regular rate and regular rhythm GI non-tender Palpation: soft Extremity normal to inspection Neuro oriented x3 and no sensory deficits noted Motor Exam: strength 5/5 throughout Psych mental status grossly normal Skin no rashes or lesions noted MDM MDM MDM Narrative Medical decision making narrative: Patient given p.o. ibuprofen here. Swab for COVID, influenza, and RSV obtained. Treatment and Re-Evaluation :: Swab for COVID, influenza, and RSV is negative. I did discuss with the patient that she may does not have a hide viral count at this time to test positive, or may have another viral illness similar to COVID and influenza. She will continue supportive care at home. I will write her a work note that she may return once symptoms are improving and she is free of fever for 24 hours. Return instructions provided. Patient comfortable with the plan. Discharge Plan Triage Chief Complaint: Shortness of Breath ED Provider: Jyoti Haddad Dx/Rx/DC Orders Clinical Impression: Viral syndrome Instructions: ED Viral Syndrome (Adult) Prescriptions: No Action omeprazole 20 MG capsule 40 mg PO BID albuterol sulfate 1 INHALER inhaler 1 - 2 puff inhalation Q6H PRN PRN (Reason: Shortness Of Breath) prednisone 10 mg Tablet 10 mg PO DAILY benzonatate [Tessalon Perles] 100 mg capsule 200 mg PO TID Patient Comments: take 2 capsules by mouth three times a day if needed ldafkdgfwkzeqis-pzcxtgmwq-OH 2-30-10 mg/5 mL syrup 10 ml PO 4X/DAY PRN PRN (Reason: Cough) Patient Comments: take 10 milliliters ( 2 TEASPOONFUL ) by mouth four times a day if needed cholecalciferol (vitamin D3) 1,250 mcg (50,000 unit) capsule 1 mcg PO QWEEK Patient Comments: take 1 capsule by mouth every week amoxicillin-pot clavulanate [amoxicillin-pot clavulanate] 875 MG tablet 875 mg PO Q12H Qty: 20 0RF hydrocodone-acetaminophen 5-325 mg tablet 1 tab PO Q6H PRN (Reason: pain) 3 Days Qty: 10 0RF cyclobenzaprine 10 mg tablet 10 mg PO BID PRN (Reason: muscle spasm) Qty: 10 0RF Stand Alone Forms: ED Work / School Excuse Primary Care Provider: NIKOLAY PAZ Referrals: NIKOLAY PAZ CRNP [Primary Care Provider] - 1 Week if not improving Disposition Disposition: Home, Self Care
[2023-10-12 12:18] VITALS: BP 138/68; PULSE 59; RESP 18; TEMP 36.9; O2SAT 98
== END 2023-10-12 12:19 | disposition home or self-care (01) ==
PROVIDERS: Emergency Provider Emergency Medicine; PCP Nurse Practitioner Adult Health; Visit Provider Emergency Medicine
DX: R06.02 Shortness of breath (principal); F17.210 Nicotine dependence, cigarettes, uncomplicated; Z98.51 Tubal ligation status; Z90.49 Acquired absence of other specified parts of digestive tract; Z90.722 Acquired absence of ovaries, bilateral; B34.9 Viral infection, unspecified
CPT/HCPCS: 87631; 99282

== ENCOUNTER 2024-06-08 11:40 | Emergency (ER) | payer MEDICAID, SELFPAY ==
[2024-06-08 11:41] VITALS: BP 119/86; PULSE 84; RESP 16; TEMP 36.2; O2SAT 100; BMI 29.2
--- NOTE | 2024-06-08 11:56 | ED.RN ---
PT HAS HAD PAIN FOR A FEW WEEKS. ITS THE URQ AND GOES STRAIGHT THROUGH TO BACK AND SHOULDER. OT HAD AN EPISODE AT WORK A WEEK AGO WITH THE [facility] TAKING HER TO [facility]. PT HAS HX OF CHOLECYSTECTOMY.
[2024-06-08 12:08] LABS: Absolute Lymphocyte Count 3.09 X10^3/uL (0.83-4.51); Absolute Neutrophil Count 3.4 X10^3/uL (2.0-7.7); Basophil# 0.06 X10^3/uL; Basophil% 0.9 % (0-1); Eosinophils% 2.8 % (0-5); Hematocrit 44.9 % (37-47); Hemoglobin 14.7 g/dL (12.0-15.0); Lymphocyte # 3.09 X10^3/ul (0.83-4.51); Lymphocyte % 43.8 % (19-41); Mean Corp Hgb Conc 32.7 g/dL (32-36); Mean Corpuscular Hgb 29.4 pg (27.0-32.0); Mean Corpuscular Volume 89.8 fL (81-99); Mean Platelet Vol. 8.8 fl (6.2-12.0); Monocyte# 0.32 X10^3/uL; Monocyte% 4.5 % (0-10); NRBC Flagged by Analyzer 0 % (0-5); Neutrophil # 3.36 X10^3/uL (2.7-7.7); Neutrophil % 47.7 % (47-70); Platelet Count 348 K/mm3 (150-450); RBC Distribution Width CV 12.6 % (11.6-14.6); RBC Distribution Width SD 41.3 fl (35.1-43.9); White Blood Count 7.1 K/mm3 (4.4-11.0)
[2024-06-08 12:23] LABS: AST(SGOT) 18 U/L (15-37); Alanine Aminotransfer ALT/SGPT 23 U/L (13-56); Albumin, Serum 3.8 g/dL (3.2-5.0); Alkaline Phosphatase 73 U/L (45-117); Anion Gap 5 (5-15); BUN 13 mg/dL (7-18); BUN/Creat Ratio 12.9 RATIO (10-20); Bilirubin, Direct 0.12 mg/dL (0.00-0.30); Calcium,Total 9.2 mg/dL (8.5-10.1); Chloride 109 mmol/L (98-107); Creatinine, Serum 1.01 mg/dL (0.55-1.02); EST Glomerular Filtration Rate 62 mL/min (>60); Est Glom Filt Rate - Afr Amer 75 mL/min (>60); Estimated Creatinine Clearance 66.04 ml/min; Globulin 3.2 g/dL (2.2-4.2); Glucose 114 mg/dL (74-106); Lipase 36 U/L (13-75); Potassium 3.7 mmol/L (3.5-5.1); Sodium Level 141 mmol/L (136-145)
[2024-06-08] MEDS: Ondansetron 4 MG/2 ML Vial IV (12:25)
[2024-06-08] MEDS: Ketorolac 15 MG/ML Vial IV (12:25)
[2024-06-08 13:41] VITALS: BP 139/66; PULSE 73; RESP 14; O2SAT 98
--- NOTE | 2024-06-08 14:04 | EX.ED.DYSGE1 ---
HPI History of Present Illness Chief Complaint: Abd Pain Detail of Chief Complaint: Epigastric pain that rates the Ruback, reminds her of pain she experienced Onset/Context/Timing Onset: Days (Patient states intermittent pain for years since her cholecystectomy.) Context: Sudden Onset Timing: Intermittent Quality: Colicky pain right upper quadrant epigastric radiating through the back Location: Under quality portion of the EMR Current Severity: Mild Maximum Severity: Moderate Worsened by: Nothing specific Relieved by: Nothing Associated Symptoms Associated Symptoms: Nausea only Narrative Narrative: Patient is a 49-year-old woman. She is status postcholecystectomy and states this pain is similar to the pain she experienced prior to cholecystectomy. She denies intolerance greasy or fried foods. She denies hematemesis coffee-ground emesis. She denies black or maroon-colored stool. Nothing exacerbates or alleviates her pain. She has no cardiac symptoms. She has no respiratory symptoms. She denies use of antithrombotic or anticoagulant. She is on omeprazole for reported GERD. She states this pain is different. There is no history of trauma. She denies fever, chills night sweats. She denies weight gain or weight loss. Prior similar symptoms: Yes Recent Illness/Hospitalization: No PFSH PFS Medical History Back pain Bruises easily Chest pain Migraines Shoulder pain Arthritis Anxiety Home Medications ?Medication ?Instructions ?Recorded ?Last Taken ?Type omeprazole 20 mg capsule,delayed 40 mg PO BID 07/26/15 12/23/19 06:00 History release albuterol sulfate 90 mcg/actuation 1 - 2 puff inhalation Q6H PRN PRN 12/16/19 Unknown History aerosol inhaler Shortness Of Breath amoxicillin 875 mg-potassium 875 mg PO Q12H #20 TABLETS 12/28/20 Unknown Rx clavulanate 125 mg tablet benzonatate 100 mg capsule 200 mg PO TID 12/28/20 Unknown History (Romeo Baker) [id number] 10 ml PO 4X/DAY PRN PRN Cough 12/28/20 Unknown History 2 mg-30 mg-10 mg/5 mL oral syrup cholecalciferol (vitamin D3) 1,250 1 mcg PO QWEEK 12/28/20 Unknown History mcg (50,000 unit) capsule prednisone 10 mg tablet 10 mg PO DAILY 12/28/20 Unknown History cyclobenzaprine 10 mg tablet 10 mg PO BID PRN muscle spasm #10 08/21/21 Unknown Rx tabs hydrocodone-acetaminophen 5-325mg 1 tab PO Q6H PRN pain 3 days #10 08/21/21 Unknown Rx 5mg-325mg tabs Allergy/AdvReac Type Severity Reaction Status Date / Time hydromorphone HCl (From Allergy Anaphylaxis Verified 10/12/23 10:09 Dilaudid) morphine Allergy Anaphylaxis Verified 10/12/23 10:09 scopolamine Allergy PT UNSURE Verified 10/12/23 10:09 OF REACTION meloxicam AdvReac Nausea Verified 10/12/23 10:09 tramadol (From Ultram) AdvReac Other Verified 10/12/23 10:09 Family History Other CVA (cerebral vascular accident) Cancer Diabetes Hypertension Surgical History History of left oophorectomy History of cholecystectomy History of right oophorectomy History of LAVH S/P ACL surgery History of removal of ovarian cyst H/O tubal ligation H/O tubal ligation History of cholecystectomy H/O: hysterectomy S/P left knee surgery Social History Smoking Status: Current every day smoker tobacco type: cigarettes Tobacco: How many years used: 12 how long ago did patient quit smokin alcohol intake: never substance use type: does not use caffeine: Yes what type of physical activity do you participate in: walking seatbelt use: always do you feel safe at home: Yes additional social history: - Jv- unemployed 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 ROS ED Constitutional Constitutional ED: Denies chills, fever(s), subjective or sweats Eyes Eyes: Denies blurry vision, change in vision or diplopia ENT ENT ED: Denies ear pain, rhinorrhea or sore throat Cardiovascular Cardiovascular: Denies chest pain, orthopnea, palpitations or racing heartbeat Respiratory/Chest Respiratory/Chest: Denies cough, dyspnea, dyspnea on exertion or orthopnea Gastrointestinal Gastrointestinal: Reports abdominal pain; Denies constipation, diarrhea, melena, nausea or vomiting Genitourinary Genitourinary ED: Denies dysuria, hematuria or urinary frequency Musculoskeletal Musculoskeletal: Denies arthralgias or myalgias Neurologic Neurologic: Denies paresthesias or weakness Endocrine Endocrinology: Denies cold intolerance or heat intolerance Hematologic/Lymphatic Hematologic/Lymphatic: Denies systems reviewed and no addt'l complaints, except as documented EXAM Physical Exam Const Vital Signs: 06/08/24 11:41 06/08/24 13:41 Temperature 97.2 F L Temperature Source Temporal Pulse Rate 84 73 Respiratory Rate 16 14 Blood Pressure 119/86 H 139/66 H Blood Pressure Mean 97 90 Pulse Ox 100 98 Oxygen Delivery Method Room Air Positive well nourished and well developed General Appearance ED: well developed and NAD; Negative for pallor HEENT Reports moist mucous membranes HEENT Narrative: Head is atraumatic normocephalic. Ears normal. Nares patent. Eyes PERRL and EOMs intact bilaterally General Eye ED: Negative for pale conjunctiva or scleral icterus Neck no lymphadenopathy, supple and no JVD Chest Wall inspection of chest normal Resp normal respiratory effort and clear to auscultation bilaterally Cardio regular rate, regular rhythm, S1 normal heart sound, S2 normal heart sound and no murmurs GI normal to inspection, nondistended, normoactive bowel sounds, non-distended and no masses; Negative for hepatosplenomegaly Palpation: soft and tender epigastric Back/Spine no CVA tenderness Extremity normal to inspection General Extremety ED: Negative for edema or tenderness General Extremity: Negative for edema Neuro oriented x3, CN's II-XII intact bilaterally and no sensory deficits noted Sensorium / Orientation: alert Motor Exam: strength 5/5 throughout Psych mental status grossly normal Skin no rashes or lesions noted, no wounds and skin turgor normal General Skin Exam: Negative for jaundice or pallor MDM MDM MDM Narrative Medical decision making narrative: Differential diagnosis would be GERD, esophagitis, gastritis, peptic ulcer disease, choledochal lithiasis is unlikely. Need to also consider pancreatitis. To evaluate her symptoms CBC was obtained as white count and H&H. Electrolyte panel to assess glucose, anion gap and renal function. Hepatic and lipase to assess for inflammation pancreatitis etc. History & Record Review Additional record(s) reviewed:: Prior outpatient record (Dr. Richardson December 22, 2023 nontoxic singular thyroid nodule.), Prior ED visit (Viral syndrome October 2023, knee contusion October 2022, cervical radiculopathy August 2021 headache March 2021) and Prior labs Lab Data Attestation: I reviewed the patient's lab results. Lab results narrative: CBC is remarkable for lymphocytosis. Electrolyte panel is unremarkable. Hepatic panel is unremarkable. Lipase is normal. Labs: Laboratory Results - last 24 hr 06/08/24 11:53 WBC 7.1 RBC 5.00 Hgb 14.7 Hct 44.9 MCV 89.8 MCH 29.4 MCHC 32.7 RDW Std Deviation 41.3 RDW Coeff of Ernesto 12.6 Plt Count 348 MPV 8.8 Immature Gran % (Auto) 0.300 Neut % (Auto) 47.7 Lymph % (Auto) 43.8 H Love % (Auto) 4.5 Eos % (Auto) 2.8 Baso % (Auto) 0.9 Absolute Neuts (auto) 3.4 Absolute Lymphs (auto) 3.09 Nucleated RBC % 0 Sodium 141 Potassium 3.7 Chloride 109 H Carbon Dioxide 27.0 Anion Gap 5 BUN 13 Creatinine 1.01 Estim Creat Clear Calc 66.04 Est GFR (MDRD) Af Amer 75 Est GFR (MDRD) Non-Af 62 BUN/Creatinine Ratio 12.9 Glucose 114 H Calcium 9.2 Total Bilirubin 0.40 Direct Bilirubin 0.12 AST 18 ALT 23 Alkaline Phosphatase 73 Total Protein 7.0 Albumin 3.8 Globulin 3.2 Lipase 36 Treatment and Re-Evaluation :: Patient was informed of her results. Patient was for to Dr. Horn. Apparently structural staff does not have capability for urgent follow-up on the weekends. Patient was instructed to call and let office staff know that you were seen emergency room and need follow-up within the next week. Discharge Plan Triage Chief Complaint: Abd Pain ED Provider: Reynaldo Dobson Dx/Rx/DC Orders Clinical Impression: Colicky epigastric pain, History of gastroesophageal reflux (GERD), History of Helicobacter pylori infection Instructions: ED Epigastric Pain Uncertain Cause Prescriptions: No Action omeprazole 20 MG capsule 40 mg PO BID albuterol sulfate 1 INHALER inhaler 1 - 2 puff inhalation Q6H PRN PRN (Reason: Shortness Of Breath) prednisone 10 mg Tablet 10 mg PO DAILY benzonatate [Tessalon Perles] 100 mg capsule 200 mg PO TID Patient Comments: take 2 capsules by mouth three times a day if needed [id number] 2-30-10 mg/5 mL syrup 10 ml PO 4X/DAY PRN PRN (Reason: Cough) Patient Comments: take 10 milliliters ( 2 TEASPOONFUL ) by mouth four times a day if needed cholecalciferol (vitamin D3) 1,250 mcg (50,000 unit) capsule 1 mcg PO QWEEK Patient Comments: take 1 capsule by mouth every week amoxicillin-pot clavulanate [amoxicillin-pot clavulanate] 875 MG tablet 875 mg PO Q12H Qty: 20 0RF hydrocodone-acetaminophen 5-325 mg tablet 1 tab PO Q6H PRN (Reason: pain) 3 Days Qty: 10 0RF cyclobenzaprine 10 mg tablet 10 mg PO BID PRN (Reason: muscle spasm) Qty: 10 0RF Primary Care Provider: NIKOLAY PAZ Referrals: Carlos Enrique Horn DO [Med Staff - Active Staff] - 1-2 Weeks NIKOLAY PAZ CRNP [Primary Care Provider] - Activity Restrictions/Additional Instructions: Call Dr. Horn's office on Sunday. Let them know you were seen in the emergency room and need a follow-up within the next week. Print Language: Polish Disposition Disposition: Home, Self Care
== END 2024-06-08 15:10 | disposition home or self-care (01) ==
PROVIDERS: Emergency Provider Emergency Medicine; PCP Nurse Practitioner Adult Health; Visit Provider Emergency Medicine
DX: R10.13 Epigastric pain (principal); K21.9 Gastro-esophageal reflux disease without esophagitis; Z90.49 Acquired absence of other specified parts of digestive tract; Z79.899 Other long term (current) drug therapy; Z90.722 Acquired absence of ovaries, bilateral; Z98.51 Tubal ligation status; Z90.710 Acquired absence of both cervix and uterus; F17.210 Nicotine dependence, cigarettes, uncomplicated
CPT/HCPCS: 80048; 80076; 83690; 85025; 96374; 96375; 99283; J2405

== ENCOUNTER 2024-07-02 11:36 | Emergency (ER) | payer SELFPAY ==
[2024-07-02 11:36] VITALS: BP 118/86; PULSE 97; RESP 14; TEMP 37.2; O2SAT 98; BMI 27.6
--- NOTE | 2024-07-02 11:48 | EDS_ITS ---
HPI History of Present Illness Chief Complaint: Nausea/Vomiting/Diarrhea Detail of Chief Complaint: Vomiting and diarrhea Informant: patient Narrative Narrative: Patient presents with vomiting and diarrhea that started 3 days ago. Initially started with vomiting and then had watery stools. Continues to have watery stools. She denies eating any unusual or undercooked foods. No other sick contacts known. Intermittent abdominal cramping noted. Every time she eats she continues to have diarrhea. Patient states she is no longer vomiting but at times feels nauseated. Significant other is concerned that patient may have Salmonella. Patient is not had recent antibiotic usage or recent travel. Patient had a young family member that had similar illness with vomiting and diarrhea but only lasted about 24 hours. [facility] Medical History Back pain Bruises easily Chest pain Migraines Shoulder pain Arthritis Anxiety Home Medications ?Medication ?Instructions ?Recorded ?Last Taken ?Type omeprazole 40 mg capsule,delayed 40 mg PO DAILY #30 caps 06/08/24 Unknown Rx release dicyclomine 10 mg capsule 20 mg (2 x 10 mg) PO TIDAC #20 07/02/24 Unknown Rx CAPSULES ondansetron 4 mg disintegrating 4 mg PO Q8H PRN PRN Nausea #10 tabs 07/02/24 Unknown Rx tablet Allergy/AdvReac Type Severity Reaction Status Date / Time hydromorphone HCl (From Allergy Anaphylaxis Verified 06/27/24 10:22 Dilaudid) morphine Allergy Anaphylaxis Verified 06/27/24 10:22 scopolamine Allergy PT UNSURE Verified 06/27/24 10:22 OF REACTION meloxicam AdvReac Nausea Verified 06/27/24 10:22 tramadol (From Ultram) AdvReac Other Verified 06/27/24 10:22 Family History Other CVA (cerebral vascular accident) Cancer Diabetes Hypertension Surgical History History of left oophorectomy History of cholecystectomy History of right oophorectomy History of LAVH S/P ACL surgery History of removal of ovarian cyst H/O tubal ligation H/O tubal ligation History of cholecystectomy H/O: hysterectomy S/P left knee surgery Social History Smoking Status: Current every day smoker tobacco type: cigarettes Tobacco: How many years used: 12 how long ago did patient quit smokin alcohol intake: never substance use type: does not use caffeine: Yes what type of physical activity do you participate in: walking seatbelt use: always do you feel safe at home: Yes additional social history: - Jv- unemployed 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 ROS ED Review of Systems ROS Unobtainable: other Constitutional Constitutional ED: Reports fever(s) and lethargy; Denies chills, sweats or weight loss Eyes Eyes: Denies blurry vision, change in vision or diplopia ENT ENT ED: Denies rhinorrhea or sore throat Cardiovascular Cardiovascular: Denies chest pain, orthopnea or racing heartbeat Respiratory/Chest Respiratory/Chest: Denies cough, dyspnea, dyspnea on exertion, orthopnea or sputum Gastrointestinal Gastrointestinal: Reports abdominal pain, diarrhea, nausea and vomiting Genitourinary Genitourinary ED: Denies dysuria, hematuria or urinary frequency Musculoskeletal Musculoskeletal: Denies arthralgias, back pain, myalgias or neck pain Integumentary Denies abscess, Abrasions or rash Neurologic Neurologic: Denies headache(s) or weakness Psychiatric Psychiatric: Denies anxiety, depression or suicidal thoughts Endocrine Endocrinology: Denies polydipsia, polyphagia or polyuria Hematologic/Lymphatic Hematologic/Lymphatic: Denies easy bleeding, easy bruising or lymphadenopathy Allergic/Immunologic Allergic/Immunologic ED: Denies mouth swelling, tongue swelling or urticaria EXAM Physical Exam Const Vital Signs: 07/02/24 11:36 Temperature 99 F Temperature Source Temporal Pulse Rate 97 Respiratory Rate 14 Blood Pressure 118/86 H Blood Pressure Mean 96 Pulse Ox 98 Oxygen Delivery Method Room Air Positive well nourished and well developed General Appearance ED: well developed and NAD HEENT Reports TM's clear and moist mucous membranes normocephalic and atraumatic; Negative for trauma or tenderness Tympanic Membrane ED: Yes TM's clear Eyes PERRL and EOMs intact bilaterally General Eye ED: Negative for pale conjunctiva or scleral icterus Neck no lymphadenopathy, supple and no JVD General: Negative for tenderness Chest Wall inspection of chest normal and palpation of chest normal Chest: Negative for tenderness Resp normal respiratory effort and clear to auscultation bilaterally Effort and Inspection: Negative for respiratory distress or pain with movement Auscultation: Negative for rhonchi, wheezes or diminished lung sounds Cardio regular rate, regular rhythm, S1 normal heart sound, S2 normal heart sound and no murmurs Peripheral Pulses: pulses 2+ throughout GI normal to inspection, nondistended, normoactive bowel sounds, soft to palpation, non-distended and no masses GI Narrative: Mild diffuse tenderness. There is no rebound, rigidity, or peritoneal signs. No mass palpated Back/Spine no CVA tenderness and no thoracic nor lumbar tenderness Extremity normal to inspection General Extremety ED: Negative for edema General Extremity: Negative for edema Neuro oriented x3, CN's II-XII intact bilaterally, no sensory deficits noted and gait normal Sensorium / Orientation: awake, alert, oriented to person, oriented to place and oriented to time Motor Exam: strength 5/5 throughout and strength abnormal Psych mental status grossly normal Skin no rashes or lesions noted and no wounds MDM MDM MDM Narrative Medical decision making narrative: Patient presents with vomiting and diarrhea for 3 days. Clinically suspect likely viral gastroenteritis. I did order stool for enteric pathogen's. IV line established. CBC with differential obtained showed a normal white count of 4.9 with hemoglobin 15.4 and platelet count 285. Chemistries unremarkable. BUN 20 and creatinine 0.89. Lactate was normal at 1.2. Patient was medicated with Bentyl as well as Zofran and was given a liter fluid bolus and felt markedly improved after treatment. She will attempt to give a stool sample. Patient will be discharged to home with prescription for Zofran as well as Bentyl and recommended [id number] Imodium for the diarrhea. Patient advised to return if persistent vomiting, diarrhea, dehydration, worsening abdominal pain, or condition should worsen anyway Lab Data Attestation: I reviewed the patient's lab results. Labs: Laboratory Results - last 24 hr 07/02/24 12:20 WBC 4.9 RBC 5.25 Hgb 15.4 H Hct 46.5 MCV 88.6 MCH 29.3 MCHC 33.1 RDW Std Deviation 39.9 RDW Coeff of Ernesto 12.3 Plt Count 285 MPV 8.6 Immature Gran % (Auto) 0.200 Neut % (Auto) 46.3 L Lymph % (Auto) 44.0 H [place] % (Auto) 6.6 Eos % (Auto) 2.3 Baso % (Auto) 0.6 Absolute Neuts (auto) 2.3 Absolute Lymphs (auto) 2.14 Nucleated RBC % 0 Sodium 137 Potassium 3.4 L Chloride 107 Carbon Dioxide 26.0 Anion Gap 5 BUN 20 H Creatinine 0.89 Estim Creat Clear Calc 72.88 Est GFR (MDRD) Af Amer 87 Est GFR (MDRD) Non-Af 72 BUN/Creatinine Ratio 22.4 H Glucose 154 H Lactic Acid 1.2 Calcium 8.8 Discharge Plan Triage Chief Complaint: Nausea/Vomiting/Diarrhea ED Provider: Rosemary Patel Dx/Rx/DC Orders Clinical Impression: Viral gastroenteritis Instructions: ED Gastroenteritis, Viral (Adult) Prescriptions: New ondansetron 4 mg tablet,disintegrating 4 mg PO Q8H PRN PRN (Reason: Nausea) Qty: 10 0RF dicyclomine 10 mg capsule 20 mg PO TIDAC Qty: 20 0RF No Action omeprazole 40 mg capsule,delayed release(DR/EC) 40 mg PO DAILY Qty: 30 0RF Primary Care Provider: NIKOLAY PAZ Referrals: NIKOLAY PAZ CRNP [Primary Care Provider] - 3-5 Days Activity Restrictions/Additional Instructions: You may use [id number] Imodium to help decrease the amount of diarrhea. Print Language: Upper Sorbian Disposition Disposition: Home, Self Care
[2024-07-02] MEDS: 0.9% Normal Saline (1000mL) 1,000 ML 999 ML IV (12:16)
[2024-07-02] MEDS: Dicyclomine 20 MG/2 ML Vial IM (12:17)
[2024-07-02] MEDS: Ondansetron 4 MG/2 ML Vial IV (12:17)
[2024-07-02] MEDS: Loperamide 2 MG Capsule 4 MG PO (12:17)
[2024-07-02 12:27] LABS: Absolute Lymphocyte Count 2.14 X10^3/uL (0.83-4.51); Absolute Neutrophil Count 2.3 X10^3/uL (2.0-7.7); Basophil# 0.03 X10^3/uL; Basophil% 0.6 % (0-1); Eosinophil# 0.11 X10^3/uL; Eosinophils% 2.3 % (0-5); Hematocrit 46.5 % (37-47); Hemoglobin 15.4 g/dL (12.0-15.0); Lymphocyte # 2.14 X10^3/ul (0.83-4.51); Mean Corp Hgb Conc 33.1 g/dL (32-36); Mean Corpuscular Hgb 29.3 pg (27.0-32.0); Mean Corpuscular Volume 88.6 fL (81-99); Mean Platelet Vol. 8.6 fl (6.2-12.0); Monocyte# 0.32 X10^3/uL; Monocyte% 6.6 % (0-10); NRBC Flagged by Analyzer 0 % (0-5); Neutrophil # 2.25 X10^3/uL (2.7-7.7); Neutrophil % 46.3 % (47-70); Platelet Count 285 K/mm3 (150-450); RBC Distribution Width CV 12.3 % (11.6-14.6); RBC Distribution Width SD 39.9 fl (35.1-43.9); Red Blood Count 5.25 M/mm3 (4.2-5.4); White Blood Count 4.9 K/mm3 (4.4-11.0)
[2024-07-02 12:40] LABS: Anion Gap 5 (5-15); BUN 20 mg/dL (7-18); BUN/Creat Ratio 22.4 RATIO (10-20); Calcium,Total 8.8 mg/dL (8.5-10.1); Chloride 107 mmol/L (98-107); Creatinine, Serum 0.89 mg/dL (0.55-1.02); EST Glomerular Filtration Rate 72 mL/min (>60); Est Glom Filt Rate - Afr Amer 87 mL/min (>60); Estimated Creatinine Clearance 72.88 ml/min; Glucose 154 mg/dL (74-106); Potassium 3.4 mmol/L (3.5-5.1); Sodium Level 137 mmol/L (136-145)
[2024-07-02 12:47] LABS: Lactic Acid 1.2 mmol/L (0.4-1.9)
[2024-07-02] MEDS: Potassium Chloride Oral Tablet 20 MEQ 40 MEQ PO (12:50)
[2024-07-02 13:36] VITALS: BP 132/72; PULSE 78; RESP 16; TEMP 36.6; O2SAT 99
== END 2024-07-02 13:58 | disposition home or self-care (01) ==
PROVIDERS: Emergency Provider Emergency Medicine; PCP Nurse Practitioner Adult Health; Visit Provider Emergency Medicine
DX: A08.4 Viral intestinal infection, unspecified (principal); Z90.710 Acquired absence of both cervix and uterus; Z90.722 Acquired absence of ovaries, bilateral; Z90.49 Acquired absence of other specified parts of digestive tract; Z98.51 Tubal ligation status; F17.210 Nicotine dependence, cigarettes, uncomplicated
CPT/HCPCS: 80048; 83605; 85025; 96361; 96372; 96374; 99283; A4216; J2405

== ENCOUNTER 2025-04-14 21:57 | Emergency (ER) | payer SELFPAY ==
[2025-04-14 21:58] VITALS: BP 121/81; PULSE 84; RESP 18; TEMP 36.3; O2SAT 99; BMI 27.1
[2025-04-14 22:13] VITALS: BP 120/85; PULSE 79; RESP 16; TEMP 36.3; O2SAT 99
--- NOTE | 2025-04-14 22:15 | EDS_ITS ---
HPI History of Present Illness Chief Complaint: Allergic Reaction Informant: patient Onset/Context/Timing Onset: Today and Yesterday Context: Gradual Onset Timing: Continuous Current Severity: Moderate Maximum Severity: Moderate Narrative Narrative: 50-year-old female last evening was stung by a bee just above her left elbow. Has had swelling and itching. Said it was more red yesterday that is improved. Denies any fever or chills. Prior similar symptoms: No Recent Illness/Hospitalization: No PFSH PFSH Medical History Back pain Bruises easily Chest pain Migraines Shoulder pain Arthritis Anxiety Home Medications ?Medication ?Instructions ?Recorded ?Last Taken ?Type omeprazole 40 mg capsule,delayed 40 mg PO DAILY #30 ca ps 06/08/24 Unknown Rx release hydrocodone-acetaminophen 5-325mg 1 tab PO Q6 PRN pain 03/09/25 Unknown History 5mg-325mg Allergy/AdvReac Type Severity Reaction Status Date / Time hydromorphone HCl (From Allergy Anaphylaxis Verified 04/14/25 21:58 Dilaudid) morphine Allergy Anaphylaxis Verified 04/14/25 21:58 scopolamine Allergy PT UNSURE Verified 04/14/25 21:58 OF REACTION meloxicam AdvReac Nausea Verified 04/14/25 21:58 tramadol (From Ultram) AdvReac Other Verified 04/14/25 21:58 Family History Other CVA (cerebral vascular accident) Cancer Diabetes Hypertension Surgical History History of left oophorectomy History of cholecystectomy History of right oophorectomy History of LAVH S/P ACL surgery History of removal of ovarian cyst H/O tubal ligation H/O tubal ligation History of cholecystectomy H/O: hysterectomy S/P left knee surgery Social History Smoking Status: Current every day smoker tobacco type: cigarettes Tobacco: How many years used: 12 how long ago did patient quit smokin alcohol intake: never substance use type: does not use caffeine: Yes what type of physical activity do you participate in: walking seatbelt use: always do you feel safe at home: Yes additional social history: - Jv- unemployed 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 Swelling. Just locally at the site of the bee sting. Constitutional Constitutional ED: Denies chills or fever(s) Eyes Eyes: Denies blurry vision ENT ENT ED: Denies ear pain Cardiovascular Cardiovascular: Denies chest pain Respiratory/Chest Respiratory/Chest: Denies cough or dyspnea Gastrointestinal Gastrointestinal: Denies abdominal pain Genitourinary Genitourinary ED: Denies dysuria or hematuria Musculoskeletal Musculoskeletal: Denies arthralgias Integumentary Denies abscess or Abrasions Neurologic Neurologic: Denies headache(s) Psychiatric Psychiatric: Denies anxiety Endocrine Endocrinology: Denies cold intolerance Hematologic/Lymphatic Hematologic/Lymphatic: Reports none Allergic/Immunologic Allergic/Immunologic ED: Denies mouth swelling, tongue swelling or urticaria EXAM Physical Exam Narrative Exam Narrative: Well-appearing 50-year-old female. Vital signs stable afebrile. No acute distress. H EENT exam pupils round react light. Moist mucous membranes. No swelling of the lips or tongue. Neck nontender. No lymphadenopathy. Back nontender. Lungs clear to auscultation bilaterally. Heart regular rhythm rate about 80 no murmur. Chest wall ribs nontender. Abdomen soft nontender. Moving all 4 extremities. Neurovascular intact. Normal range of motion. Specifically left arm upper arm just proximal to the elbow immediately there is a bee sting. Local allergic reaction. Swollen. Redness is resolving. No lymphangitic streaking. No axillary lymphadenopathy. Full range of motion to her left elbow, shoulder and wrist. Normal radial pulse. 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 She has a ring on her left finger but she says she is able to remove it. Exam is consistent local allergic reaction. She does not have a systemic rash. Neurologically she is awake and alert. Const Vital Signs: 04/14/25 21:58 Temperature 97.4 F L Temperature Source Temporal Pulse Rate 84 Respiratory Rate 18 Blood Pressure 121/81 H Blood Pressure Mean 94 Pulse Ox 99 Oxygen Delivery Method Room Air MDM MDM MDM Narrative Medical decision making narrative: 50-year-old female local allergic reaction to her left upper arm. It does not look infected. It is not a generalized reaction. Extremity given 1 dose of prednisone here. Motrin and Benadryl at home. Ice. We offered to take her ring off she said she does do it at home. History & Record Review Discussion w/independent historian: Patient Discharge Plan Triage Chief Complaint: Allergic Reaction ED Provider: Ramiro Hermosillo Dx/Rx/DC Orders Clinical Impression: Allergic reaction to bee sting Instructions: ED Bee Sting Local React Prescriptions: No Action hydrocodone-acetaminophen 5-325 mg tablet 1 tab PO Q6 PRN (Reason: pain) omeprazole 40 mg capsule,delayed release(DR/EC) 40 mg PO DAILY Qty: 30 0RF Primary Care Provider: NIKOLAY PAZ Referrals: NIKOLAY PAZ CRNP [Primary Care Provider, Family Practice] - As Needed Activity Restrictions/Additional Instructions: Motrin for pain and swelling. Benadryl for the allergic reaction. Ice and elevate your arm to decrease the pain and swelling. Make sure you get your ring off your left hand so does not get stuck. This is a local allergic action to the bee sting. This is normal in appearance. It does not look infected. They can get infected but it is unlikely. If it gets a lot worse or you develop a fever return but this time I would not treat this as an infection. Print Language: Australian Disposition Disposition: Home, Self Care
== END 2025-04-14 22:30 | disposition home or self-care (01) ==
LOC: ED 22:27
PROVIDERS: Emergency Provider Emergency Medicine; PCP Family Medicine; Visit Provider Emergency Medicine
DX: T63.444A Toxic effect of venom of bees, undetermined, initial encounter (principal); Z90.710 Acquired absence of both cervix and uterus; Z90.721 Acquired absence of ovaries, unilateral; Z90.49 Acquired absence of other specified parts of digestive tract; Z98.51 Tubal ligation status; F17.210 Nicotine dependence, cigarettes, uncomplicated
CPT/HCPCS: 99282

== ENCOUNTER 2025-06-15 12:44 | Emergency (ER) | payer SELFPAY ==
[2025-06-15 12:44] VITALS: BP 139/86; PULSE 83; RESP 16; TEMP 36.7; O2SAT 98; BMI 26.8
--- NOTE | 2025-06-15 13:01 | RAD_ITS ---
PROCEDURE: CHEST PA AND LATERAL 06/15/2025 REASON FOR EXAM: CHEST PAIN TECHNIQUE: Procedure Code: RADCXR Modality: DX Procedure: CHEST PA AND LATERAL COMPARISON: 01/12/2020 FINDINGS: Support/devices:None. Heart:Normal in size. Mediastinum: Unremarkable Lungs: Clear. No consolidation. No mass. Pleura: No pneumothorax. No pleural effusion. Osseous structures: No fracture. Soft tissues: No soft tissue abnormality. Status post cholecystectomy. RAD/Chest PA and Lateral IMPRESSION: No acute cardiopulmonary process or significant change. Reading Location: [facility]
--- NOTE | 2025-06-15 13:01 | EKG12_ITS ---
Test Reason : Blood Pressure : */* mmHG Vent. Rate : 79 BPM Atrial Rate : 79 BPM P-R Int : 132 ms QRS Dur : 86 ms QT Int : 370 ms P-R-T Axes : 35 52 22 degrees QTcB Int : 424 ms Normal sinus rhythm Nonspecific ST abnormality Abnormal ECG Confirmed by Oliver Romero ([id number]), film editor THAIS MATA ([id number]) on 06/17/2025 11:32:00 AM Referred By: Confirmed By: Oliver Romero
--- NOTE | 2025-06-15 13:03 | ED.VIS.CHEST ---
HPI History of Present Illness Chief Complaint: Chest Pain Informant: patient Narrative Narrative: Patient is a 50-year-old female with a history of GERD and left TKA presenting with upper back pain exacerbated by deep inspiration. - Reports constant upper back pain bilaterally since yesterday, worsened by deep inspiration and movement. - Denies recent activities that could cause muscle strain. - Associated symptoms include mild congestion and a low-grade fever of 99?F; denies significant cough, hemoptysis, or abdominal pain. - Reports new onset of left ankle pain since yesterday, described as aching without known trauma; denies calf pain or edema. - Denies history of DVT or PE, recent travel, hospitalization, or surgery in the past 1-2 months. - Denies use of anticoagulants, female hormones, or control. - Smoker. - Takes omeprazole 40 mg nightly for GERD and Tennga 5/325 mg and Tylenol 500 mg for left knee pain. - History of multiple left knee surgeries, all remote including TKA 3 years ago; reports crepitus and discomfort with knee movement, but refuses further surgery. PE Risk Factors: Negative for Recent Travel/Surgery, Recent Immobilization, Prior DVT or PE, Cancer or OCP + Smoking + >/=35 PFSH PFSH Medical History Back pain Bruises easily Chest pain Migraines Shoulder pain Arthritis Anxiety Home Medications ?Medication ?Instructions ?Recorded ?Last Taken ?Type omeprazole 40 mg capsule,delayed 40 mg PO DAILY #30 caps 06/08/24 06/14/25 Rx release hydrocodone-acetaminophen 5-325mg 1 tab PO Q6 PRN pain 03/09/25 06/14/25 History 5mg-325mg acetaminophen 500 mg capsule 500 mg PO QPM 06/15/25 06/14/25 History albuterol sulfate 90 mcg/actuation 1 inh inhalation Q6H PRN PRN 06/15/25 Unknown History aerosol inhaler wheezing diclofenac sodium 1 % topical gel 0 ea topical 4X/DAY PRN PRN pain 06/15/25 06/14/25 History epinephrine 0.3 mg/0.3 mL 0.3 mg IM Q15M PRN anaphylaxis 06/15/25 Unknown History injection, auto-injector (EpiPen) Allergy/AdvReac Type Severity Reaction Status Date / Time hydromorphone HCl (From Allergy Anaphylaxis Verified 06/15/25 12:45 Dilaudid) morphine Allergy Anaphylaxis Verified 06/15/25 12:45 scopolamine Allergy PT UNSURE Verified 06/15/25 12:45 OF REACTION meloxicam AdvReac Nausea Verified 06/15/25 12:45 tramadol (From Ultram) AdvReac Other Verified 06/15/25 12:45 Family History Other CVA (cerebral vascular accident) Cancer Diabetes Hypertension Surgical History History of left oophorectomy History of cholecystectomy History of right oophorectomy History of LAVH S/P ACL surgery History of removal of ovarian cyst H/O tubal ligation H/O tubal ligation History of cholecystectomy H/O: hysterectomy S/P left knee surgery Social History Smoking Status: Current every day smoker tobacco type: cigarettes Tobacco: How many years used: 12 how long ago did patient quit smokin alcohol intake: never substance use type: does not use caffeine: Yes what type of physical activity do you participate in: walking seatbelt use: always do you feel safe at home: Yes additional social history: - Jv- unemployed Patient is a [employer] ROS ROS ED Constitutional Constitutional ED: Denies chills or fever(s) Eyes Eyes: Denies change in vision or diplopia ENT ENT ED: Reports nasal congestion and rhinorrhea; Denies sore throat Cardiovascular Cardiovascular: Reports as per HPI and chest pain; Denies leg edema, palpitations, radiating jaw, neck or arm pain or syncope Respiratory/Chest Respiratory/Chest: Denies cough or dyspnea Gastrointestinal Gastrointestinal: Denies abdominal pain, diarrhea, nausea or vomiting Genitourinary Genitourinary ED: Denies dysuria or hematuria Musculoskeletal Musculoskeletal: Reports extremity pain; Denies back pain or neck pain Integumentary Denies abscess or rash Neurologic Neurologic: Denies headache(s), paresthesias or weakness Psychiatric Psychiatric: Denies anxiety or suicidal thoughts EXAM Physical Exam Const Vital Signs: 06/15/25 12:44 06/15/25 13:11 06/15/25 13:11 Temperature 98.1 F Temperature Source Temporal Pulse Rate 83 Respiratory Rate 16 Blood Pressure 139/86 H Blood Pressure Mean 103 Pulse Ox 98 Oxygen Delivery Method Room Air Room Air Room Air Positive well nourished and well developed General Appearance ED: well developed and NAD HEENT Reports moist mucous membranes normocephalic and atraumatic Eyes PERRL and EOMs intact bilaterally Neck full ROM and supple Chest Wall Chest Narrative: Palpation in the lower chest where patient is having pain reproduces her pain, and she makes it worse with movement. No crepitance, subcutaneous emphysema. Resp normal respiratory effort and clear to auscultation bilaterally Cardio regular rate, regular rhythm and no murmurs GI non-tender and non-distended Auscultation: normoactive bowel sounds Palpation: soft Back/Spine no CVA tenderness General Back: other FROM Extremity normal to inspection General Extremety ED: Negative for edema, pulses abnormal or tenderness General Extremity: Negative for edema or pulses abnormal Neuro oriented x3, CN's II-XII intact bilaterally and no sensory deficits noted Sensorium / Orientation: awake and alert Motor Exam: strength 5/5 throughout Skin no rashes or lesions noted and no wounds Heart Score History: Slightly/Non-Suspicious ECG: Normal Age: >45 - <65 years Risk Factors: 1 or 2 Risk Factors Troponin: </= Normal Limit Score: 2 MDM MDM MDM Narrative Medical decision making narrative: Assessment: The patient is a 50-year-old female with history of left total knee replacement presenting for constant upper back/mid-thoracic pain that worsens with deep inspiration. Normal EKG, negative cardiac enzymes, and normal chest x-ray effectively rule out acute coronary syndrome and pneumothorax and pneumonia; low Wells criteria and absence of risk factors make pulmonary embolism unlikely. Given the rapid improvement with IV ketorolac, reproducible pain with palpation and movement on behalf of the patient, and unremarkable diagnostics, musculoskeletal chest pain from strain or pleurisy are the most likely etiologies, the treatment being similar acutely. Plan: - Administered IV ketorolac for analgesia and anti-inflammatory effect. - Discharged home with instructions to continue oral ibuprofen and Tennga as needed, follow up with PCP if pain persists >5 days or worsens, and return for dyspnea or increased pain. Diagnostics: - EKG interpreted: normal tracing with no ischemic changes. Independently interpreted by me, Joey Darling. - Chest x-ray: normal. - Labs: cardiac enzymes normal; CBC, kidney function, and electrolytes within normal limits. Reevaluations: - Patient re-evaluated after IV ketorolac; reports pain improvement, diagnostics reviewed as normal, deemed stable for discharge. PERC Rule for Pulmonary Embolism from [email or web address] on 06/15/2025 All calculations should be rechecked by clinician prior to use RESULT SUMMARY: 0 criteria No need for further workup, as <2% chance of PE. If no criteria are positive and clinician?s pre-test probability is <15%, PERC Rule criteria are satisfied. INPUTS: Age >=0 ?> 0 = No HR >=00 ?> 0 = No O? sat on room air <95% ?> 0 = No Unilateral leg swelling ?> 0 = No Hemoptysis ?> 0 = No Recent surgery or trauma ?> 0 = No Prior PE or DVT ?> 0 = No Hormone use ?> 0 = No Portions of this note were generated using voice recognition software ([email or web address]). I have reviewed the contents and every effort has been made to ensure accuracy; however, inadvertent errors in grammar, spelling, punctuation, or word choice may occur, that were not noted before signing the document and should not alter the intended clinical meaning. History & Record Review Discussion w/independent historian: Patient and Significant other Lab Data Attestation: I reviewed the patient's lab results. Labs: Laboratory Results - last 24 hr 06/15/25 13:00 WBC 6.6 RBC 4.96 Hgb 14.8 Hct 44.0 MCV 88.7 MCH 29.8 MCHC 33.6 RDW Std Deviation 38.6 RDW Coeff of Ernesto 12.0 Plt Count 325 MPV 8.6 Immature Gran % (Auto) 0.200 Neut % (Auto) 42.9 L Lymph % (Auto) 49.2 H Greenlee % (Auto) 3.9 Eos % (Auto) 2.7 Baso % (Auto) 1.1 H Absolute Neuts (auto) 2.8 Absolute Lymphs (auto) 3.25 Nucleated RBC % 0 Sodium 138 Potassium 3.8 Chloride 103 Carbon Dioxide 25.8 Anion Gap 10 BUN 18 Creatinine 0.89 Estim Creat Clear Calc 71.15 Est GFR (MDRD) Non-Af 79 BUN/Creatinine Ratio 20.6 H Glucose 85 Calcium 9.5 Troponin T High Sens < 6 Radiography Diagnostic Testing: Clinical Impression(s) from Imaging Studies Chest X-Ray 06/15/25 13:01 IMPRESSION: No acute cardiopulmonary process or significant change. Reading Location: [facility] Rhythm Strip Rhythm Strip: Sinus Rhythm Rate: 79 Ectopy: None EKG Initial EKG: Attestation: I personally reviewed and interpreted this EKG as follows: Interpretation: Sinus Rhythm and No Acute Injury Pattern Comments: Some artifact in couple leads otherwise normal EKG. Normal axis, normal intervals. Discharge Plan Triage Chief Complaint: Chest Pain ED Provider: Joey Darling Dx/Rx/DC Orders Clinical Impression: Musculoskeletal chest pain, Painful respiration Instructions: ED Chest Wall Pain, Costochondritis Prescriptions: No Action hydrocodone-acetaminophen 5-325 mg tablet 1 tab PO Q6 PRN (Reason: pain) Patient Comments: pt states usually only takes one at night diclofenac sodium 1 % gel 0 ea topical 4X/DAY PRN PRN (Reason: pain) albuterol sulfate 90 mcg/actuation HFA aerosol inhaler 1 inh inhalation Q6H PRN PRN (Reason: wheezing) acetaminophen 500 mg capsule 500 mg PO QPM epinephrine [EpiPen] 0.3 mg/0.3 mL auto-injector 0.3 mg IM Q15M PRN (Reason: anaphylaxis) Rx Instructions: for 2 doses omeprazole 40 mg capsule,delayed release(DR/EC) 40 mg PO DAILY Qty: 30 0RF Primary Care Provider: Reagan Castañeda Referrals: Reagan Castañeda MD [Primary Care Provider, Family Practice] - 3-5 Days if not improving Activity Restrictions/Additional Instructions: - Take ibuprofen at home for your chest discomfort as needed; you may combine it with your Tennga if you still need extra relief. - Monitor your symptoms closely. If your chest pain worsens, you become significantly short of breath, or you cough up blood, seek medical care right away. - If your pain does not improve after about five days, schedule a follow-up appointment with your doctor. Print Language: Chinese Disposition Disposition: Home, Self Care
[2025-06-15] MEDS: Ketorolac 30 MG/ML Syringe IV (13:08)
[2025-06-15 13:15] LABS: Hematocrit 44.0 % (37-47); Hemoglobin 14.8 g/dL (12.0-15.0); Immature Granulocytes Count 0.010 X10^3/uL (0.0-0.0); Mean Corp Hgb Conc 33.6 g/dL (32-36); Mean Corpuscular Volume 88.7 fL (81-99); Mean Platelet Vol. 8.6 fl (6.2-12.0); NRBC Flagged by Analyzer 0 % (0-5); Platelet Count 325 K/mm3 (150-450); RBC Distribution Width CV 12.0 % (11.6-14.6); RBC Distribution Width SD 38.6 fl (35.1-43.9); Red Blood Count 4.96 M/mm3 (4.2-5.4); White Blood Count 6.6 K/mm3 (4.4-11.0)
[2025-06-15 13:44] LABS: Anion Gap 10 (5-15); BUN 18 mg/dL (4-19); BUN/Creat Ratio 20.6 RATIO (10-20); Calcium,Total 9.5 mg/dL (7.6-11.0); Carbon Dioxide 25.8 mmol/L (21.0-32.0); Chloride 103 mmol/L (98-108); Estimated Creatinine Clearance 71.15 ml/min (50-250); Glucose 85 mg/dL (70-99); Potassium 3.8 mmol/L (3.3-5.1); Troponin T High Sensitivity < 6 ng/L (<=14)
[2025-06-15 13:59] VITALS: BP 131/84; PULSE 72; RESP 15; TEMP 36.9; O2SAT 100
== END 2025-06-15 14:04 | disposition home or self-care (01) ==
PROVIDERS: Emergency Provider Emergency Medicine; PCP Family Medicine; Visit Provider Emergency Medicine
DX: R07.89 Other chest pain (principal); Z79.899 Other long term (current) drug therapy; R07.1 Chest pain on breathing; Z90.710 Acquired absence of both cervix and uterus; K21.9 Gastro-esophageal reflux disease without esophagitis; Z90.722 Acquired absence of ovaries, bilateral; Z90.49 Acquired absence of other specified parts of digestive tract; Z98.51 Tubal ligation status; F17.210 Nicotine dependence, cigarettes, uncomplicated; Z96.652 Presence of left artificial knee joint
CPT/HCPCS: 71046; 80048; 84484; 85025; 93005; 96374; 96375; 99283; A4216; J2405